=== PATIENT | female | born 1960 | race Caucasian/White ===

== ENCOUNTER → 2024-02-20 13:49 | Outpatient (CLI) | payer OTHER, MEDICAID, SELFPAY ==
[2024-02-20 14:27] LABS: Hematocrit 36.7 % (36-46); Hemoglobin 12.6 g/dL (12.0-16.0); Mean Corpuscular HGB Conc 34.4 % (30-36); Mean Corpuscular Hemoglobin 35.1 PG (26-34); Mean Corpuscular Volume 102.2 fL (80-100); Platelet Count 190 X10^3/uL (150-400); Red Blood Cell Count 3.59 X10^6/uL (4.0-5.2); Red Cell Distribution Width 13.2 % (11.6-14.8)
[2024-02-20 14:46] LABS: Alanine Aminotransferase 20 IU/L (<35); Albumin 4.3 g/dL (3.5-5.0); Albumin Globulin Ratio 1.7 (1.0-2.8); Alkaline Phosphatase 68 U/L (38-126); Aspartate Aminotransferase 22 IU/L (14-36); BUN Creatinine Ratio 24.7 (6-22); Bilirubin Total 0.4 mg/dL (0.2-1.3); Blood Urea Nitrogen 18 mg/dL (7-17); Calcium 9.9 mg/dL (8.4-10.2); Carbon Dioxide 31 mmol/L (22-32); Chloride 100 mmol/L (98-107); Cholesterol 203 mg/dL (140-199); Estimated Glomerular Filt Rate > 60 mL/min (>60); Globulin 2.6 g/dL (1.7-4.1); Glucose 89 mg/dL (80-110); HDL Cholesterol 62 mg/dL (40-60); HEMOLYSIS < 15 (0-50); LDL Cholesterol Calculated 90 mg/dL (<100); Potassium 4.5 mmol/L (3.4-5.1); Sodium 138 mmol/L (137-145); Total Protein 6.9 g/dL (6.3-8.2); Triglycerides 253 mg/dL (35-150)
== END ==
LOC: LAB 13:50
PROVIDERS: PCP Family Medicine; Referring Provider Family Medicine; Visit Provider Family Medicine
DX: E78.5 Hyperlipidemia, unspecified (principal); I10 Essential (primary) hypertension; F32.0 Major depressive disorder, single episode, mild; G47.00 Insomnia, unspecified; M54.50 Low back pain, unspecified; G89.29 Other chronic pain; F41.1 Generalized anxiety disorder
CPT/HCPCS: 36415; 80053; 80061; 85027; 86803; 87389

== ENCOUNTER → 2024-06-10 12:23 | Outpatient (CLI) | payer OTHER, SELFPAY ==
--- NOTE | 2024-06-10 12:26 | DI.RAD.S_ITS ---
PROCEDURE: XR LUMBAR SPINE MIN 4V INDICATIONS: BACK PAIN TECHNIQUE: 5 views of the lumbar spine were acquired, including bilateral oblique views. COMPARISON: None. FINDINGS: Bones: Partial lumbarization of the 1st sacral element noted. Convex left lumbar scoliosis. No pars defects. Wedge-shaped compression fractures at L2 and L3 noted with endplate sclerosis. Disc space narrowing and hypertrophic facet joints in the lower lumbar spine. Soft tissues: Overlying bowel gas pattern is normal. No suspicious soft tissue calcifications. Oblique images: No pars defects. IMPRESSION: L2 and L3 wedge-shaped compression fractures, uncertain age Degenerative disc disease and arthropathy Approved by: Andrzej Andino M.D. on 06/10/2024 at 13:57
== END ==
PROVIDERS: Family Provider Family Medicine; PCP Family Medicine; Referring Provider Physical Medicine & Rehabilitation; Visit Provider Physical Medicine & Rehabilitation
DX: M51.360 Other intervertebral disc degeneration, lumbar region with discogenic back pain only (principal); M47.816 Spondylosis without myelopathy or radiculopathy, lumbar region; M48.56XA Collapsed vertebra, not elsewhere classified, lumbar region, initial encounter for fracture; G89.29 Other chronic pain
CPT/HCPCS: 72110

== ENCOUNTER → 2024-07-01 12:14 | Outpatient (CLI) | payer MEDICAID, SELFPAY ==
--- NOTE | 2024-07-01 12:24 | DI.MRI.S_ITS ---
PROCEDURE: MR LUMBAR SPINE WO CON INDICATIONS: L1, L2 fx, left L2, L3 and L5 radic TECHNIQUE: Noncontrast sagittal T1 spin echo and T2 fast echo, sagittal STIR, and T2 fast spin echo through the lumbar spine. In cases with scoliosis, additional coronal T2 fast spin echo may be performed. COMPARISON: None. FINDINGS: Image quality: Excellent. Alignment and Curvature: Mild levocurvature. Mild retrolisthesis of L4 on L5. 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 Bone Marrow: Chronic compression deformities, moderate L1 and mild at L2 with retropulsion. Marrow is of normal overall signal. No acute vertebral body compression fractures. Spinal Cord: Conus medullaris terminates at the L1 level. Visualized cord demonstrates normal signal and size. Paraspinous Soft Tissues: No paravertebral masses. T12-L1: Disc desiccation. Retropulsion from compression deformity. At least moderate central canal stenosis. No neural foraminal stenosis. L1-L2: Disc desiccation. Retropulsion from compression deformity. Moderate to severe central canal stenosis. Facet arthropathy. Mild bilateral neural foraminal stenosis. L2-L3: Disc desiccation. Facet arthropathy and thickening of ligamentum flavum. Epidural lipomatosis. Moderate central canal stenosis. Mild bilateral neural foraminal stenosis. L3-L4: Disc desiccation diffuse disc bulge. Facet arthropathy and thickening of ligamentum flavum. Epidural lipomatosis. Moderate central canal stenosis. Mild bilateral neural foraminal stenosis. L4-L5: Disc desiccation and mild height loss. Diffuse disc bulge with small superimposed right paracentral disc protrusion. Facet arthropathy. Severe central canal stenosis. Severe left and moderate right neural foraminal stenosis. L5-S1: Disc desiccation. Facet arthropathy. No central canal or neural foraminal stenosis. IMPRESSION: 1. Multilevel degenerative changes of the lumbar spine as described above. Chronic appearing compression deformities of L1 and L2. 2. Severe central canal stenosis at L4-5. Moderate to severe central canal stenosis at L1-L2. 3. Severe left and moderate right neural foraminal stenosis at L4-5. Mild neural foraminal stenosis at other levels. 4. 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 Dictated by: Collins Mendoza M.D. on 07/01/2024 at 15:58 Approved by: Collins Mendoza M.D. on 07/01/2024 at 16:06
== END ==
PROVIDERS: Family Provider Family Medicine; PCP Family Medicine; Referring Provider Physical Medicine & Rehabilitation; Visit Provider Physical Medicine & Rehabilitation
DX: M47.26 Other spondylosis with radiculopathy, lumbar region (principal); M47.27 Other spondylosis with radiculopathy, lumbosacral region; M48.061 Spinal stenosis, lumbar region without neurogenic claudication; M43.27 Fusion of spine, lumbosacral region; S32.019A Unspecified fracture of first lumbar vertebra, initial encounter for closed fracture; S32.029A Unspecified fracture of second lumbar vertebra, initial encounter for closed fracture
CPT/HCPCS: 72148

== ENCOUNTER 2024-07-08 14:30 | Outpatient (RCR) | payer MEDICAID, OTHER, SELFPAY ==
--- NOTE | 2024-04-16 17:02 | PT.OIE ---
Current Diagnoses Other chronic pain (04/18/24) Low back pain, unspecified (04/18/24) Past Medical History (Last Updated 02/20/24 @ 13:45 by Jarrett Ellison DO) Benign essential hypertension Chronic low back pain RASHMI (generalized anxiety disorder) Hyperlipidemia, unspecified Insomnia Major depressive disorder, single episode, mild Visit Care Team Role Provider Type Jarrett Ellison DO Attending Provider Physician Family Provider Primary Care Provider Referring Provider Specialty: Family Practice Address: [address] [place] [address], [facility] [address], [place], [address] Email: [email or web address] Physical Therapy Initial Evaluation PT-OP-A Visit Information Start: 04/16/24 14:47 Freq: Status: Active Protocol: Document 04/16/24 14:48 [facility] (Rec: 04/16/24 15:29 [facility] [id number]) Out-Patient Physical Therapy Visit Information Visit Information Visit Type Initial Evaluation Visit Start Time 14:44 Visit Stop Time 15:28 Visit Number 06/07 per calender year Number of INFORMATION CLERK Visits 0 PT-OP-B Current Condition Start: 04/16/24 14:47 Freq: Status: Active Protocol: Document 04/16/24 14:48 [facility] (Rec: 04/16/24 15:29 [facility] [id number]) Current Condition History of Current Condition Onset Date August 2022 Current Complaints LBP and leg pain History of Current Condition Pt had accident in August 2022 and fell of 8 ft ladder holding chainsaw. Dislocated L knee and had 2 different surgery (external fixation then internal fixation), lumbar spine compression fx ( L1 and 2) and has degneration of L4 and 5 w/compression of n root R>L L4&5. Did PT for several months and started seeing a pain management doctor and had horrible L ankle n pain and had injection that helped. 2nd injections in back helped w/n pain in thigh. DId PT from Jan 2023 ( [facility] until that point) October 2023. Finished d/t move to [place]. pain management doctor wanted her to continue. took a while to get into primary w/move. Feels like nerve pain is getting significantly worse and is able to do less. hx of fx of tibia w/screws (L) about 10 years ago d/t horse falling onto her and those screws had to be take out. Has appt w/pain management Jun 10 . 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 was up to 2500 steps in October in a day. Now it is harder to get to that amt d/t pain. LLE started to swell again and wearing compression socks during the day. Will be exhausted easily like going up a flight of stairs. Treatment Goals Patient/Caregiver Goals strength as much as can, try to avoid surgery, get gym program PT-OP-C Subjective Start: 04/16/24 14:47 Freq: Status: Active Protocol: Document 04/16/24 14:48 [facility] (Rec: 04/16/24 15:29 [facility] [id number]) OP-PT Pain Assessment Location LB Pain Location Details lumbar to sacrum Scale Used worst: 8 ; average: 6, best: 4 Frequency Constant Radiating Location R buttocks, L lat hip/buttocks , med thigh (mid thigh) & med lat leg to arch Variations/Patterns band around calf Pain Aggravating Factors Standing,Sitting,Walking,Stair Climbing,Lifting Pain Alleviating Factors Medication PT-OP-D Balance Start: 04/16/24 14:47 Freq: Status: Active Protocol: Document 04/16/24 14:48 [facility] (Rec: 04/16/24 15:29 [facility] [id number]) Balance Tests Single Limb Standing Single Limb- Right 14 sec w/opp hip drop-back pain Single Limb- Left 6 sec w/opp hip drop PT-OP-F Manual Assessment Start: 04/16/24 14:47 Freq: Status: Active Protocol: Document 04/16/24 14:48 [facility] (Rec: 04/16/24 15:29 [facility] [id number]) Manual Assessments Other Manual Assessments Other Manual Assessments redder around R scars, L>R inflmation, no difference in heat PT-OP-G Mobility & Gait Start: 04/16/24 14:47 Freq: Status: Active Protocol: Document 04/16/24 14:48 [facility] (Rec: 04/16/24 15:29 [facility] [id number]) OP Gait Assessment Comments Gait Comments dec LLE stance time, wears heel lift in L shoe per past PT recommenation, slower L knee flex/ext, dec push off, rigid spinal movement PT-OP-J Posture/Palpation/Skin Start: 04/16/24 14:47 Freq: Status: Active Protocol: Document 04/16/24 14:48 [facility] ([facility]24 [id number] Posture Evaluation Comments Posture Comments stands on lat aspcect of L foot w/dec big toe contact, shifts wt side to side, slight knee flex L, varus L knee, shifted onto RLE; R iliac crest higher and greater trocanter PT-OP-K Range of Motion Start: 04/16/24 14:47 Freq: Status: Active Protocol: Document 04/16/24 14:48 [facility] (Rec: 04/16/24 15:29 [facility] [id number]) Lumbar Spine Range of Motion Lumbar Spine Active Percentage Flexion 20 Extension 5 Rotation Left 30 Rotation Right 50 Lateral Flexion Left 60 Lateral Flexion Right 60 Knee Goniometric Range of Motion Knee L Flexion Active (degrees) 104 Extension Active (degrees) 14 Ankle and Foot Goniometric Range of Motion Ankle and Foot Right Active Dorsiflexion with Knee Flexed 2 Dorsiflexion with Knee Extended 0 Plantarflexion 55 Left Active Dorsiflexion with Knee Flexed 10 Dorsiflexion with Knee Extended 13 Plantarflexion 52 Comments lacking DF to neutral in both positions PT-OP-L Special Tests Start: 04/16/24 14:47 Freq: Status: Active Protocol: Document 04/16/24 14:48 [facility] (Rec: 04/16/24 15:29 [facility] [id number]) Special Tests Lumbar Spine Special Tests Straight Leg Raise Test Results neg B -able to get to 90 ~ w/ opp knee bent Slump Test Results slump pos R; B positive ext sit PT-OP-M Strength Start: 04/16/24 14:47 Freq: Status: Active Protocol: Document 04/16/24 14:48 [facility] (Rec: 04/16/24 15:29 [facility] [id number]) Hip Strength Hip Manual Muscle Testing Right Flexion (L2) 3+ Fair+ Abduction 4 Good External Rotation 4 Good Internal Rotation 4+ Good+ Left Flexion (L2) 3 Fair Abduction 3 Fair External Rotation 3 Fair Internal Rotation 3+ Fair+ Comments n pain w/ER Knee Strength Knee Manual Muscle Testing Right Flexion (S2) 4+ Good+ Extension (L3) 5 Normal Left Flexion (S2) 3+ Fair+ Extension (L3) 3+ Fair+ Ankle/Foot Strength Ankle and Foot Manual Muscle Testing Right Dorsiflexion (L4) 5 Normal Plantarflexion (S1) 5 Normal Inversion 5 Normal Eversion (S1) 5 Normal Comments PF tested seated Left Dorsiflexion (L4) 3+ Fair+ Plantarflexion (S1) 3+ Fair+ Inversion 4- Good- Eversion (S1) 4- Good- Comments pain PT-OP-Q Treatments Start: 04/16/24 14:47 Freq: Status: Active Protocol: Document 04/16/24 14:48 [facility] (Rec: 04/16/24 15:29 [facility] [id number]) Self-Care/Home Management Treatment Education Other Education 8 min: discussed findings of eval and importance of cont exercise along w/leg length discrepency. edu re: significant weakness and encouraged that plan to start PT and if PT not working considering injection. PT-OP-T Assessment and Plan Start: 04/16/24 14:47 Freq: Status: Active Protocol: Document 04/16/24 14:48 [facility] (Rec: 04/16/24 15:29 [facility] [id number]) Physical Therapy Assessment Rehab Potential Rehabilitation Potential Good Evaluation Complexity Number of Personal Factors/Comorbidities 3 or More Number of Body Systems Impaired 4 or More Clinical Presentation at Evaluation Evolving Impairments Impairments Activity Tolerance,Balance, Edema,Functional Activities, Functional Mobility,Gait,Pain, Posture,ROM,Soft Tissue Mobility,Strength,Transfers Goals activity Short Term Goal (STG) Pt will report being able to go up a flight of stairs w/o c /o fatigue or pain greater than 4/10 STG Duration 05/29/24 Fpc Goal (LTG) Pt will report being able to sit and stand and alternate between the options in order to allow pt to return to working. LTG Duration 07/10/24 strength Short Term Goal (STG) Pt will be indep w/HEP and will be able to start working out at the gym w/PT direction. STG Duration 05/29/24 Fpc Goal (LTG) pt will score at least 4/5 on BLE MMT and at least 3/5 on LPM to show improved stability to allow greater ease w/ activity. LTG Duration 07/10/24 CHRIS Impairment 25/50 Short Term Goal (STG) Pt will improve CHRIS score to at least 19/50 to show improved functional ability. STG Duration 05/29/24 Fpc Goal (LTG) Pt will improve CHRIS score to at least 9/50 to show improved functional ability. LTG Duration 07/10/24 Assessment Summary Assessment Pt presents w/worsening pain since finishing moving to [place] in November and no longer attending PT w/hx of fall in August 2022 falling off ladder holding chainsaw w/ ORIF completed of L tibia along w/compression fx of L1 and 2 and compression of n root at L4 and 5 w/hx of helpful injecitons. Pain is worse and pt trying to avoid surgery and build up strength again while waiting to see pain medicine specialist. She is very weak in L>R LE and in core along w/has notable gait deviations and dec balance. She would benefit from skilled PT to address her deficits as she is unable to work d/t pain d/t intolerance to sitting and standing. Physical Therapy Plan Frequency and Duration Frequency of Treatment 2x/Week Duration of treatment (weeks) 12 Plan of Care Start Date 04/16/24 Plan of Care End Date 07/10/24 Therapeutic Interventions Therapeutic Interventions Balance Training,Gait Training ,Home Exercise Program,Joint Mobilizations,Manual Therapy, Neuromuscular Re-education, Patient/Caregiver Education, Self-Care/Home Management,Soft Tissue Mobilization,Taping, Therapeutic Activities, Therapeutic Exercises Modalities Cold Pack/Ice Massage,Electric Stimulation,Hot Packs, Infrared Therapy,Ultrasound Next Visit Focus/Plan Next Note Type Treatment Note Next Visit Plan careful re: hx of compression fx L1, 2; work on pelvis relalignment, gentle STM to back and LLE to improve mobility and ROM, ankle and knee jt mobs to improve mobility. HEP: try sit to stands, supine core (ex. Pelvic tilts, LTR, bridge, SL isometric press), consider clamshells, hip abd strength Try bike options, leg press, leg machines for gym training
--- NOTE | 2024-04-16 18:34 | PT.OIE ---
Current Diagnoses Other chronic pain (04/16/24) Low back pain, unspecified (04/16/24) Past Medical History (Last Updated 02/20/24 @ 13:45 by Jarrett Ellison DO) Benign essential hypertension Chronic low back pain RASHMI (generalized anxiety disorder) Hyperlipidemia, unspecified Insomnia Major depressive disorder, single episode, mild Visit Care Team Role Provider Type Jarrett Ellison DO Attending Provider Physician Family Provider Primary Care Provider Referring Provider Specialty: Family Practice Address: [address] [place] [address], [facility] [address], [place], [address] Email: [email or web address] Physical Therapy Initial Evaluation PT-OP-A Visit Information Start: 04/16/24 14:47 Freq: Status: Active Protocol: Document 04/16/24 14:48 [facility] (Rec: 04/16/24 15:29 [facility] [id number]) Out-Patient Physical Therapy Visit Information Visit Information Visit Type Initial Evaluation Visit Start Time 14:44 Visit Stop Time 15:28 Visit Number 06/07 per calender year Number of MINING PROFESSIONALS Visits 0 PT-OP-B Current Condition Start: 04/16/24 14:47 Freq: Status: Active Protocol: Document 04/16/24 14:48 [facility] (Rec: 04/16/24 15:29 [facility] [id number]) Current Condition History of Current Condition Onset Date August 2022 Current Complaints LBP and leg pain History of Current Condition Pt had accident in August 2022 and fell of 8 ft ladder holding chainsaw. Dislocated L knee and had 2 different surgery (external fixation then internal fixation), lumbar spine compression fx ( L1 and 2) and has degneration of L4 and 5 w/compression of n root R>L L4&5. Did PT for several months and started seeing a pain management doctor and had horrible L ankle n pain and had injection that helped. 2nd injections in back helped w/n pain in thigh. DId PT from Jan 2023 ( [facility] until that point) October 2023. Finished d/t move to [place]. pain management doctor wanted her to continue. took a while to get into primary w/move. Feels like nerve pain is getting significantly worse and is able to do less. hx of fx of tibia w/screws (L) about 10 years ago d/t horse falling onto her and those screws had to be take out. Has appt w/pain management Jun 10 . 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 was up to 2500 steps in October in a day. Now it is harder to get to that amt d/t pain. LLE started to swell again and wearing compression socks during the day. Will be exhausted easily like going up a flight of stairs. Treatment Goals Patient/Caregiver Goals strength as much as can, try to avoid surgery, get gym program PT-OP-C Subjective Start: 04/16/24 14:47 Freq: Status: Active Protocol: Document 04/16/24 14:48 [facility] (Rec: 04/16/24 15:29 [facility] [id number]) OP-PT Pain Assessment Location LB Pain Location Details lumbar to sacrum Scale Used worst: 8 ; average: 6, best: 4 Frequency Constant Radiating Location R buttocks, L lat hip/buttocks , med thigh (mid thigh) & med lat leg to arch Variations/Patterns band around calf Pain Aggravating Factors Standing,Sitting,Walking,Stair Climbing,Lifting Pain Alleviating Factors Medication PT-OP-D Balance Start: 04/16/24 14:47 Freq: Status: Active Protocol: Document 04/16/24 14:48 [facility] (Rec: 04/16/24 15:29 [facility] [id number]) Balance Tests Single Limb Standing Single Limb- Right 14 sec w/opp hip drop-back pain Single Limb- Left 6 sec w/opp hip drop PT-OP-F Manual Assessment Start: 04/16/24 14:47 Freq: Status: Active Protocol: Document 04/16/24 14:48 [facility] (Rec: 04/16/24 15:29 [facility] [id number]) Manual Assessments Other Manual Assessments Other Manual Assessments redder around R scars, L>R inflmation, no difference in heat PT-OP-G Mobility & Gait Start: 04/16/24 14:47 Freq: Status: Active Protocol: Document 04/16/24 14:48 [facility] (Rec: 04/16/24 15:29 [facility] [id number]) OP Gait Assessment Comments Gait Comments dec LLE stance time, wears heel lift in L shoe per past PT recommenation, slower L knee flex/ext, dec push off, rigid spinal movement PT-OP-J Posture/Palpation/Skin Start: 04/16/24 14:47 Freq: Status: Active Protocol: Document 04/16/24 14:48 [facility] (Rec: 04/16/24 15:29 [id number] Posture Evaluation Comments Posture Comments stands on lat aspcect of L foot w/dec big toe contact, shifts wt side to side, slight knee flex L, varus L knee, shifted onto RLE; R iliac crest higher and greater trocanter PT-OP-K Range of Motion Start: 04/16/24 14:47 Freq: Status: Active Protocol: Document 04/16/24 14:48 [facility] (Rec: 04/16/24 15:29 [facility] [id number]) Lumbar Spine Range of Motion Lumbar Spine Active Percentage Flexion 20 Extension 5 Rotation Left 30 Rotation Right 50 Lateral Flexion Left 60 Lateral Flexion Right 60 Knee Goniometric Range of Motion Knee L Flexion Active (degrees) 104 Extension Active (degrees) 14 Ankle and Foot Goniometric Range of Motion Ankle and Foot Right Active Dorsiflexion with Knee Flexed 2 Dorsiflexion with Knee Extended 0 Plantarflexion 55 Left Active Dorsiflexion with Knee Flexed 10 Dorsiflexion with Knee Extended 13 Plantarflexion 52 Comments lacking DF to neutral in both positions PT-OP-L Special Tests Start: 04/16/24 14:47 Freq: Status: Active Protocol: Document 04/16/24 14:48 [facility] (Rec: 04/16/24 15:29 [facility] [id number]) Special Tests Lumbar Spine Special Tests Straight Leg Raise Test Results neg B -able to get to 90 ~ w/ opp knee bent Slump Test Results slump pos R; B positive ext sit PT-OP-M Strength Start: 04/16/24 14:47 Freq: Status: Active Protocol: Document 04/16/24 14:48 [facility] (Rec: 04/16/24 15:29 [facility] [id number]) Hip Strength Hip Manual Muscle Testing Right Flexion (L2) 3+ Fair+ Abduction 4 Good External Rotation 4 Good Internal Rotation 4+ Good+ Left Flexion (L2) 3 Fair Abduction 3 Fair External Rotation 3 Fair Internal Rotation 3+ Fair+ Comments n pain w/ER Knee Strength Knee Manual Muscle Testing Right Flexion (S2) 4+ Good+ Extension (L3) 5 Normal Left Flexion (S2) 3+ Fair+ Extension (L3) 3+ Fair+ Ankle/Foot Strength Ankle and Foot Manual Muscle Testing Right Dorsiflexion (L4) 5 Normal Plantarflexion (S1) 5 Normal Inversion 5 Normal Eversion (S1) 5 Normal Comments PF tested seated Left Dorsiflexion (L4) 3+ Fair+ Plantarflexion (S1) 3+ Fair+ Inversion 4- Good- Eversion (S1) 4- Good- Comments pain PT-OP-Q Treatments Start: 04/16/24 14:47 Freq: Status: Active Protocol: Document 04/16/24 14:48 [facility] (Rec: 04/16/24 15:29 [facility] [id number]) Self-Care/Home Management Treatment Education Other Education 8 min: discussed findings of eval and importance of cont exercise along w/leg length discrepency. edu re: significant weakness and encouraged that plan to start PT and if PT not working considering injection. PT-OP-T Assessment and Plan Start: 04/16/24 14:47 Freq: Status: Active Protocol: Document 04/16/24 14:48 [facility] (Rec: 04/16/24 15:29 [facility] [id number]) Physical Therapy Assessment Rehab Potential Rehabilitation Potential Good Evaluation Complexity Number of Personal Factors/Comorbidities 3 or More Number of Body Systems Impaired 4 or More Clinical Presentation at Evaluation Evolving Impairments Impairments Activity Tolerance,Balance, Edema,Functional Activities, Functional Mobility,Gait,Pain, Posture,ROM,Soft Tissue Mobility,Strength,Transfers Goals activity Short Term Goal (STG) Pt will report being able to go up a flight of stairs w/o c /o fatigue or pain greater than 4/10 STG Duration 05/29/24 Detention Goal (LTG) Pt will report being able to sit and stand and alternate between the options in order to allow pt to return to working. LTG Duration 07/10/24 strength Short Term Goal (STG) Pt will be indep w/HEP and will be able to start working out at the gym w/PT direction. STG Duration 05/29/24 Detention Goal (LTG) pt will score at least 4/5 on BLE MMT and at least 3/5 on LPM to show improved stability to allow greater ease w/ activity. LTG Duration 07/10/24 CHRIS Impairment 25/50 Short Term Goal (STG) Pt will improve CHRIS score to at least 19/50 to show improved functional ability. STG Duration 05/29/24 Detention Goal (LTG) Pt will improve CHRIS score to at least 9/50 to show improved functional ability. LTG Duration 07/10/24 Assessment Summary Assessment Pt presents w/worsening pain since finishing moving to [place] in November and no longer attending PT w/hx of fall in August 2022 falling off ladder holding chainsaw w/ ORIF completed of L tibia along w/compression fx of L1 and 2 and compression of n root at L4 and 5 w/hx of helpful injecitons. Pain is worse and pt trying to avoid surgery and build up strength again while waiting to see pain medicine specialist. She is very weak in L>R LE and in core along w/has notable gait deviations and dec balance. She would benefit from skilled PT to address her deficits as she is unable to work d/t pain d/t intolerance to sitting and standing. Physical Therapy Plan Frequency and Duration Frequency of Treatment 2x/Week Duration of treatment (weeks) 12 Plan of Care Start Date 04/16/24 Plan of Care End Date 07/10/24 Therapeutic Interventions Modalities Cold Pack/Ice Massage,Electric Stimulation,Hot Packs, Infrared Therapy,Ultrasound Next Visit Focus/Plan Next Note Type Treatment Note Next Visit Plan careful re: hx of compression fx L1, 2; work on pelvis relalignment, gentle STM to back and LLE to improve mobility and ROM, ankle and knee jt mobs to improve mobility. HEP: try sit to stands, supine core (ex. Pelvic tilts, LTR, bridge, SL isometric press), consider clamshells, hip abd strength Try bike options, leg press, leg machines for gym training
--- NOTE | 2024-04-16 18:34 | PT.OPPOC ---
Physical, Occupational & Speech Therapy At [facility] Current Diagnoses Other chronic pain (04/16/24) Low back pain, unspecified (04/16/24) Visit Care Team Role Provider Type Jarrett Ellison DO Attending Provider Physician Family Provider Primary Care Provider Referring Provider Specialty: Family Practice Address: [address] [place] [address], [address], [facility] Email: [email or web address] Plan Of Care PT-OP-B Current Condition Start: 04/16/24 14:47 Freq: Status: Active Protocol: Document 04/16/24 14:48 [facility] (Rec: 04/16/24 15:29 [facility] [id number]) Current Condition History of Current Condition Onset Date August 2022 Current Complaints LBP and leg pain History of Current Condition Pt had accident in August 2022 and fell of 8 ft ladder holding chainsaw. Dislocated L knee and had 2 different surgery (external fixation then internal fixation), lumbar spine compression fx ( L1 and 2) and has degneration of L4 and 5 w/compression of n root R>L L4&5. Did PT for several months and started seeing a pain management doctor and had horrible L ankle n pain and had injection that helped. 2nd injections in back helped w/n pain in thigh. DId PT from Jan 2023 ( [facility] until that point) October 2023. Finished d/t move to [place]. pain management doctor wanted her to continue. took a while to get into primary w/move. Feels like nerve pain is getting significantly worse and is able to do less. hx of fx of tibia w/screws (L) about 10 years ago d/t horse falling onto her and those screws had to be take out. Has appt w/pain management Jun 10 . 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 was up to 2500 steps in October in a day. Now it is harder to get to that amt d/t pain. LLE started to swell again and wearing compression socks during the day. Will be exhausted easily like going up a flight of stairs. Treatment Goals Patient/Caregiver Goals strength as much as can, try to avoid surgery, get gym program PT-OP-T Assessment and Plan Start: 04/16/24 14:47 Freq: Status: Active Protocol: Document 04/16/24 14:48 [facility] (Rec: 04/16/24 15:29 [facility] [id number]) Physical Therapy Assessment Rehab Potential Rehabilitation Potential Good Evaluation Complexity Number of Personal Factors/Comorbidities 3 or More Number of Body Systems Impaired 4 or More Clinical Presentation at Evaluation Evolving Impairments Impairments Activity Tolerance,Balance, Edema,Functional Activities, Functional Mobility,Gait,Pain, Posture,ROM,Soft Tissue Mobility,Strength,Transfers Goals activity Short Term Goal (STG) Pt will report being able to go up a flight of stairs w/o c /o fatigue or pain greater than 4/10 STG Duration 05/29/24 Custodial Goal (LTG) Pt will report being able to sit and stand and alternate between the options in order to allow pt to return to working. LTG Duration 07/10/24 strength Short Term Goal (STG) Pt will be indep w/HEP and will be able to start working out at the gym w/PT direction. STG Duration 05/29/24 Public Health Nurse Goal (LTG) pt will score at least 4/5 on BLE MMT and at least 3/5 on LPM to show improved stability to allow greater ease w/ activity. LTG Duration 07/10/24 CHRIS Impairment 25/50 Short Term Goal (STG) Pt will improve CHRIS score to at least 19/50 to show improved functional ability. STG Duration 05/29/24 Custodial Goal (LTG) Pt will improve CHRIS score to at least 9/50 to show improved functional ability. LTG Duration 07/10/24 Assessment Summary Assessment Pt presents w/worsening pain since finishing moving to [place] in November and no longer attending PT w/hx of fall in August 2022 falling off ladder holding chainsaw w/ ORIF completed of L tibia along w/compression fx of L1 and 2 and compression of n root at L4 and 5 w/hx of helpful injecitons. Pain is worse and pt trying to avoid surgery and build up strength again while waiting to see pain medicine specialist. She is very weak in L>R LE and in core along w/has notable gait deviations and dec balance. She would benefit from skilled PT to address her deficits as she is unable to work d/t pain d/t intolerance to sitting and standing. Physical Therapy Plan Frequency and Duration Frequency of Treatment 2x/Week Duration of treatment (weeks) 12 Plan of Care Start Date 04/16/24 Plan of Care End Date 07/10/24 Therapeutic Interventions Modalities Cold Pack/Ice Massage,Electric Stimulation,Hot Packs, Infrared Therapy,Ultrasound Next Visit Focus/Plan Next Note Type Treatment Note Next Visit Plan careful re: hx of compression fx L1, 2; work on pelvis relalignment, gentle STM to back and LLE to improve mobility and ROM, ankle and knee jt mobs to improve mobility. HEP: try sit to stands, supine core (ex. Pelvic tilts, LTR, bridge, SL isometric press), consider clamshells, hip abd strength Try bike options, leg press, leg machines for gym training Plan of Care Dates Plan of Care Start Date 04/16/24 Plan of Care End Date 07/10/24 Electronically Signed by: Ermelinda Escobar, PT 04/17/24 [id number] If you are in agreement with this Plan of Care, please return a signed and dated copy. I have reviewed this Plan of Care and certify that the skilled therapy services above are required to meet the patient?s needs. Physician Signature Date Printed Name and Credentials Clinical Instructor Signature Printed Name and Credentials
--- NOTE | 2024-04-18 15:38 | PT.OTN ---
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 Dislocated L knee and had 2 different surgery (external fixation then internal fixation), lumbar spine compression fx ( L1 and 2) and has degneration of L4 and 5 w/compression of n root R>L L4&5. Did PT for several months and started seeing a pain management doctor and had horrible L ankle n pain and had injection that helped. 2nd injections in back helped w/n pain in thigh. DId PT from Jan 2023 ( [facility] until that point) October 2023. Finished d/t move to [place]. pain management doctor wanted her to continue. took a while to get into primary w/move. Feels like nerve pain is getting significantly worse and is able to do less. hx of fx of tibia w/screws (L) about 10 years ago d/t horse falling onto her and those screws had to be take out. Has appt w/pain management Jun 10 . 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 was up to 2500 steps in October in a day. Now it is harder to get to that amt d/t pain. LLE started to swell again and wearing compression socks during the day. Will be exhausted easily like going up a flight of stairs. Treatment Goals Patient/Caregiver Goals strength as much as can, try to avoid surgery, get gym program PT-OP-C Subjective Start: 04/16/24 14:47 Freq: Status: Active Protocol: Document 04/18/24 14:11 [facility] (Rec: 04/18/24 15:38 [facility] [id number]) OP-PT Subjective Patient Comments Patient Comments Patient reports she is the same. PT-OP-D Balance Start: 04/16/24 14:47 Freq: Status: Active Protocol: Document 04/16/24 14:48 [facility] (Rec: 04/16/24 15:29 [facility] [id number]) Balance Tests Single Limb Standing Single Limb- Right 14 sec w/opp hip drop-back pain Single Limb- Left 6 sec w/opp hip drop PT-OP-F Manual Assessment Start: 04/16/24 14:47 Freq: Status: Active Protocol: Document 04/16/24 14:48 [facility] (Rec: 04/16/24 15:29 [facility] [id number]) Manual Assessments Other Manual Assessments Other Manual Assessments redder around R scars, L>R inflmation, no difference in heat PT-OP-G Mobility & Gait Start: 04/16/24 14:47 Freq: Status: Active Protocol: Document 04/16/24 14:48 [facility] (Rec: 04/16/24 15:29 [facility] [id number]) OP Gait Assessment Comments Gait Comments dec LLE stance time, wears heel lift in L shoe per past PT recommenation, slower L knee flex/ext, dec push off, rigid spinal movement PT-OP-J Posture/Palpation/Skin Start: 04/16/24 14:47 Freq: Status: Active Protocol: Document 04/16/24 14:48 [facility] (Rec: 04/16/24 15:29 [facility] [id number]) Posture Evaluation Comments Posture Comments stands on lat aspcect of L foot w/dec big toe contact, shifts wt side to side, slight knee flex L, varus L knee, shifted onto RLE; R iliac crest higher and greater trocanter PT-OP-K Range of Motion Start: 04/16/24 14:47 Freq: Status: Active Protocol: Document 04/16/24 14:48 [facility] (Rec: 04/16/24 15:29 [facility] [id number]) Lumbar Spine Range of Motion Lumbar Spine Active Percentage Flexion 20 Extension 5 Rotation Left 30 Rotation Right 50 Lateral Flexion Left 60 Lateral Flexion Right 60 Knee Goniometric Range of Motion Knee L Flexion Active (degrees) 104 Extension Active (degrees) 14 Ankle and Foot Goniometric Range of Motion Ankle and Foot Right Active Dorsiflexion with Knee Flexed 2 Dorsiflexion with Knee Extended 0 Plantarflexion 55 Left Active Dorsiflexion with Knee Flexed 10 Dorsiflexion with Knee Extended 13 Plantarflexion 52 Comments lacking DF to neutral in both positions PT-OP-L Special Tests Start: 04/16/24 14:47 Freq: Status: Active Protocol: Document 04/16/24 14:48 [facility] (Rec: 04/16/24 15:29 [facility] [id number]) Special Tests Lumbar Spine Special Tests Straight Leg Raise Test Results neg B -able to get to 90 ~ w/ opp knee bent Slump Test Results slump pos R; B positive ext sit PT-OP-M Strength Start: 04/16/24 14:47 Freq: Status: Active Protocol: Document 04/16/24 14:48 [facility] (Rec: 04/16/24 15:29 [facility] [id number]) Hip Strength Hip Manual Muscle Testing Right Flexion (L2) 3+ Fair+ Abduction 4 Good External Rotation 4 Good Internal Rotation 4+ Good+ Left Flexion (L2) 3 Fair Abduction 3 Fair External Rotation 3 Fair Internal Rotation 3+ Fair+ Comments n pain w/ER Knee Strength Knee Manual Muscle Testing Right Flexion (S2) 4+ Good+ Extension (L3) 5 Normal Left Flexion (S2) 3+ Fair+ Extension (L3) 3+ Fair+ Ankle/Foot Strength Ankle and Foot Manual Muscle Testing Right Dorsiflexion (L4) 5 Normal Plantarflexion (S1) 5 Normal Inversion 5 Normal Eversion (S1) 5 Normal Comments PF tested seated Left Dorsiflexion (L4) 3+ Fair+ Plantarflexion (S1) 3+ Fair+ Inversion 4- Good- Eversion (S1) 4- Good- Comments pain PT-OP-Q Treatments Start: 04/16/24 14:47 Freq: Status: Active Protocol: Document 04/18/24 14:11 [facility] (Rec: 04/18/24 15:38 [facility] [id number]) Therapeutic Exercises Supine Exercises piriformis stretch Supine Exercise Name HEP Side bilateral Equipment Used HEP Reps/Minutes one minute each LE Comments Verbal cues Mika stretch Side bilateral Reps/Minutes one + minute each LE with AROM knee flexion Comments verbal cues Sitting Exercises seated hip abduction with band Side bilateral Resistance level 3 band Equipment Used HEP Reps/Minutes one minute Comments one minute for glute med activation. Standing Exercises calf stretches Standing Exercise Name gastroc and soleus Side left Equipment Used HEP Reps/Minutes X1 each stretch one minute Comments verbal and visual cues, monitored for TC discomfort Gait Training Gait Activity descending stairs Description 4 six inch stairs with bilateral UE use Treatment Focus Verbal cues for hands fwd on rail to inc hip hinge and decrease force knees facing mirror Distance/Duration ~10 feet Treatment Focus decreasing left ipsilateral trunk sidebend Comments reports increased discomfort SI area with trial of decreasing ipsilateral trunk sidebend Manual Therapy Treatment Consent Patient gave verbal consent for manual Yes treatment Soft Tissue Mobilization left quad Mobilization Type Myofascial Release,Other Intensity/Depth Superficial Body Position Hooklying hips, SI area Body Location bilateral L> R SI, glute/ piriformis/ hip flexors Mobilization Type Cross-Friction,Rolling, Sustained Pressure Intensity/Depth Moderate Body Position Sidelying Joint Mobilizations left ankle Joint Mulligan with movement TC mob Direction AP Grade III Body Position Standing Reps/Duration X10 X 3 left knee Joint tibia on femur Direction AP and PA Grade III Body Position Hooklying Reps/Duration X10 each Comments and supine Manual Techniques MET for right AI left PI Type and pubic shotgun Body Location SI Body Position Hooklying Reps/Duration 6X 6 seconds each PT-OP-T Assessment and Plan Start: 04/16/24 14:47 Freq: Status: Active Protocol: Document 04/18/24 14:11 [facility] (Rec: 04/18/24 15:38 [facility] [id number]) Physical Therapy Assessment Goals activity Short Term Goal (STG) Pt will report being able to go up a flight of stairs w/o c /o fatigue or pain greater than 4/10 STG Duration 05/29/24 Custodial Goal (LTG) Pt will report being able to sit and stand and alternate between the options in order to allow pt to return to working. LTG Duration 07/10/24 strength Short Term Goal (STG) Pt will be indep w/HEP and will be able to start working out at the gym w/PT direction. STG Duration 05/29/24 Logistician Goal (LTG) pt will score at least 4/5 on BLE MMT and at least 3/5 on LPM to show improved stability to allow greater ease w/ activity. LTG Duration 07/10/24 CHRIS Impairment 25/50 Short Term Goal (STG) Pt will improve CHRIS score to at least 19/50 to show improved functional ability. STG Duration 05/29/24 Logistician Goal (LTG) Pt will improve CHRIS score to at least 9/50 to show improved functional ability. LTG Duration 07/10/24 Assessment Summary Assessment Patient rates back pain 4/10 end of session in standing. Good doretha to stretches and glute med activation during session. LE muscle stiffness and weakness continues to impact gait pattern and functional mobility. Physical Therapy Plan Therapeutic Interventions Modalities Cold Pack/Ice Massage,Electric Stimulation,Hot Packs, Infrared Therapy,Ultrasound Next Visit Focus/Plan Next Note Type Treatment Note Next Visit Plan check balance, assess doretha to HEP, Mika stretch to HEP, Glute med strengthening/sit to stand with band with focus on full knee ext when reaching upright left LE careful re: hx of compression fx L1, 2; work on pelvis relalignment, gentle STM to back and LLE to improve mobility and ROM, ankle and knee jt mobs to improve mobility. HEP: try sit to stands, supine core (ex. Pelvic tilts, LTR, bridge, SL isometric press), consider clamshells, hip abd strength Try bike options, leg press, leg machines for gym training
--- NOTE | 2024-04-23 16:58 | PT.OTN ---
Current Diagnoses Other chronic pain (04/23/24) Low back pain, unspecified (04/23/24) Physical Therapy Treatment Note PT-OP-A Visit Information Start: 04/16/24 14:47 Freq: Status: Active Protocol: Document 04/23/24 13:32 SW (Rec: 04/23/24 14:36 SW [id number]) Out-Patient Physical Therapy Visit Information Visit Information Visit Type Treatment Note Visit Start Time 13:45 Visit Stop Time 14:25 Visit Number 08/05 Number of FORGING PRESS LEVER TENDER Visits 2 PT-OP-B Current Condition Start: 04/16/24 14:47 Freq: Status: Active Protocol: Document 04/16/24 14:48 [facility] (Rec: 04/16/24 15:29 [facility] [id number]) Current Condition History of Current Condition Onset Date August 2022 Current Complaints LBP and leg pain History of Current Condition Pt had accident in August 2022 and fell of 8 ft ladder holding chainsaw. Dislocated L knee and had 2 different surgery (external fixation then internal fixation), lumbar spine compression fx ( L1 and 2) and has degneration of L4 and 5 w/compression of n root R>L L4&5. Did PT for several months and started seeing a pain management doctor and had horrible L ankle n pain and had injection that helped. 2nd injections in back helped w/n pain in thigh. DId PT from Jan 2023 ( [facility] until that point) October 2023. Finished d/t move to [place]. pain management doctor wanted her to continue. took a while to get into primary w/move. Feels like nerve pain is getting significantly worse and is able to do less. hx of fx of tibia w/screws (L) about 10 years ago d/t horse falling onto her and those screws had to be take out. Has appt w/pain management Jun 10 . 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 was up to 2500 steps in October in a day. Now it is harder to get to that amt d/t pain. LLE started to swell again and wearing compression socks during the day. Will be exhausted easily like going up a flight of stairs. Treatment Goals Patient/Caregiver Goals strength as much as can, try to avoid surgery, get gym program PT-OP-C Subjective Start: 04/16/24 14:47 Freq: Status: Active Protocol: Document 04/23/24 13:32 SW (Rec: 04/23/24 14:36 SW [id number]) OP-PT Subjective Patient Comments Patient Comments Pt reports felt better for a day or two, now feels the same . Pt reports at rest in seated 3/10. Pt reports prolonged seated/ standing pain goes up and with movement pain goes as high as 6-7/10 PT-OP-D Balance Start: 04/16/24 14:47 Freq: Status: Active Protocol: Document 04/16/24 14:48 [facility] (Rec: 04/16/24 15:29 [facility] [id number]) Balance Tests Single Limb Standing Single Limb- Right 14 sec w/opp hip drop-back pain Single Limb- Left 6 sec w/opp hip drop PT-OP-F Manual Assessment Start: 04/16/24 14:47 Freq: Status: Active Protocol: Document 04/16/24 14:48 [facility] (Rec: 04/16/24 15:29 [facility] [id number]) Manual Assessments Other Manual Assessments Other Manual Assessments redder around R scars, L>R inflmation, no difference in heat PT-OP-G Mobility & Gait Start: 04/16/24 14:47 Freq: Status: Active Protocol: Document 04/16/24 14:48 [facility] (Rec: 04/16/24 15:29 [facility] [id number]) OP Gait Assessment Comments Gait Comments dec LLE stance time, wears heel lift in L shoe per past PT recommenation, slower L knee flex/ext, dec push off, rigid spinal movement PT-OP-J Posture/Palpation/Skin Start: 04/16/24 14:47 Freq: Status: Active Protocol: Document 04/16/24 14:48 [facility] (Rec: 04/16/24 15:29 [facility] [id number]) Posture Evaluation Comments Posture Comments stands on lat aspcect of L foot w/dec big toe contact, shifts wt side to side, slight knee flex L, varus L knee, shifted onto RLE; R iliac crest higher and greater trocanter PT-OP-K Range of Motion Start: 04/16/24 14:47 Freq: Status: Active Protocol: Document 04/16/24 14:48 [facility] (Rec: 04/16/24 15:29 [facility] [id number]) Lumbar Spine Range of Motion Lumbar Spine Active Percentage Flexion 20 Extension 5 Rotation Left 30 Rotation Right 50 Lateral Flexion Left 60 Lateral Flexion Right 60 Knee Goniometric Range of Motion Knee L Flexion Active (degrees) 104 Extension Active (degrees) 14 Ankle and Foot Goniometric Range of Motion Ankle and Foot Right Active Dorsiflexion with Knee Flexed 2 Dorsiflexion with Knee Extended 0 Plantarflexion 55 Left Active Dorsiflexion with Knee Flexed 10 Dorsiflexion with Knee Extended 13 Plantarflexion 52 Comments lacking DF to neutral in both positions PT-OP-L Special Tests Start: 04/16/24 14:47 Freq: Status: Active Protocol: Document 04/16/24 14:48 [facility] (Rec: 04/16/24 15:29 [facility] [id number]) Special Tests Lumbar Spine Special Tests Straight Leg Raise Test Results neg B -able to get to 90 ~ w/ opp knee bent Slump Test Results slump pos R; B positive ext sit PT-OP-M Strength Start: 04/16/24 14:47 Freq: Status: Active Protocol: Document 04/16/24 14:48 [facility] (Rec: 04/16/24 15:29 [facility] [id number]) Hip Strength Hip Manual Muscle Testing Right Flexion (L2) 3+ Fair+ Abduction 4 Good External Rotation 4 Good Internal Rotation 4+ Good+ Left Flexion (L2) 3 Fair Abduction 3 Fair External Rotation 3 Fair Internal Rotation 3+ Fair+ Comments n pain w/ER Knee Strength Knee Manual Muscle Testing Right Flexion (S2) 4+ Good+ Extension (L3) 5 Normal Left Flexion (S2) 3+ Fair+ Extension (L3) 3+ Fair+ Ankle/Foot Strength Ankle and Foot Manual Muscle Testing Right Dorsiflexion (L4) 5 Normal Plantarflexion (S1) 5 Normal Inversion 5 Normal Eversion (S1) 5 Normal Comments PF tested seated Left Dorsiflexion (L4) 3+ Fair+ Plantarflexion (S1) 3+ Fair+ Inversion 4- Good- Eversion (S1) 4- Good- Comments pain PT-OP-Q Treatments Start: 04/16/24 14:47 Freq: Status: Active Protocol: Document 04/23/24 13:32 (Rec: 04/23/24 14:36 [id number]) Therapeutic Exercises Supine Exercises LTR Supine Exercise Name LTR Side bilateral Comments instructed in comfortable, pain free range Core Supine Exercise Name SL Isometric Side bilateral Resistance isometric Reps/Minutes x10 ea w/3 hold Comments cues for core activation, and breathwork piriformis stretch Supine Exercise Name HEP Side bilateral Equipment Used HEP Reps/Minutes one minute each LE Comments Verbal cues Mika stretch Supine Exercise Name Mika stretch, trial different hip flexor stretch for carryover at home Side bilateral Reps/Minutes one + minute each LE with AROM knee flexion Comments verbal cues for stretch, pain free Sitting Exercises seated hip abduction with band Sitting Exercise Name Reviewed for pt tolerance, tolerated better with decreased hip flex Side bilateral Resistance level 3 band Equipment Used HEP Reps/Minutes one minute Comments one minute for glute med activation. Standing Exercises calf stretches Standing Exercise Name verbal review for HEP carryover tolerance, review next session as able Other Exercises STS Other Exercise Name STS w/ band Resistance level 1 TB Equipment Used elevated plinth, slightly higher than standard chair height Comments cues for mechanics, cues for glute activation to come into standing Manual Therapy Treatment Consent Patient gave verbal consent for manual Yes treatment Soft Tissue Mobilization left quad Mobilization Type Myofascial Release,Other Intensity/Depth Superficial Body Position Hooklying hips, SI area Body Location Left SI, glute/piriformis/ hip flexors Mobilization Type Cross-Friction,Rolling, Sustained Pressure,Trigger Point Release Intensity/Depth Moderate Body Position Sidelying Comments instructed pt in self STM w/ tennis ball on wall to glute/ piriformis mm, as tolerated PT-OP-T Assessment and Plan Start: 04/16/24 14:47 Freq: Status: Active Protocol: Document 04/23/24 13:32 (Rec: 04/23/24 14:36 [id number]) Physical Therapy Assessment Goals activity Short Term Goal (STG) Pt will report being able to go up a flight of stairs w/o c /o fatigue or pain greater than 4/10 STG Duration 05/29/24 Long-Term Goal (LTG) Pt will report being able to sit and stand and alternate between the options in order to allow pt to return to working. LTG Duration 07/10/24 strength Short Term Goal (STG) Pt will be indep w/HEP and will be able to start working out at the gym w/PT direction. STG Duration 05/29/24 Long-Term Goal (LTG) pt will score at least 4/5 on BLE MMT and at least 3/5 on LPM to show improved stability to allow greater ease w/ activity. LTG Duration 07/10/24 CHRIS Impairment 25/50 Short Term Goal (STG) Pt will improve CHRIS score to at least 19/50 to show improved functional ability. STG Duration 05/29/24 Swimming Pool Maintenance Supervisor Goal (LTG) Pt will improve CHRIS score to at least 9/50 to show improved functional ability. LTG Duration 07/10/24 Assessment Summary Assessment Initiated core stabilization in supine this session, pt tolerated well, mod cues required for core stabilization, breathwork. Continued manual therapy to decrease tension and improve mobility, pt had multiple trigger points in glute, improved post manual, instructed pt in self STM with tennis ball in a nylon or long sock against wall for carryover at home. Initiated STS this session with level 1 TB for glute med activation, plinth slightly elevated for pt tolerance and to improve mechanics with decreased compensation, good tolerance, no increase in symptoms with elevated plinth and cues for correct execution, Issued HEP HO, plan to assess pt tolerance next session and progress as able. Physical Therapy Plan Frequency and Duration Frequency of Treatment 2x/Week Duration of treatment (weeks) 12 Plan of Care Start Date 04/16/24 Plan of Care End Date 07/10/24 Therapeutic Interventions Therapeutic Interventions Balance Training,Gait Training ,Home Exercise Program,Joint Mobilizations,Manual Therapy, Neuromuscular Re-education, Patient/Caregiver Education, Self-Care/Home Management,Soft Tissue Mobilization,Taping, Therapeutic Activities, Therapeutic Exercises Modalities Cold Pack/Ice Massage,Electric Stimulation,Hot Packs, Infrared Therapy,Ultrasound Next Visit Focus/Plan Next Note Type Treatment Note Next Visit Plan check balance, assess doretha to HEP, Trial other hip flexor stretches next session due to pt difficulty on bed due to softness, Glute med strengthening/sit to stand with band with focus on full knee ext when reaching upright left LE (initiated STS w/ band 04/23/24, followup on carryover/tolerance next session careful re: hx of compression fx L1, 2; work on pelvis relalignment, gentle STM to back and LLE to improve mobility and ROM, ankle and knee jt mobs to improve mobility. HEP: try sit to stands, supine core (ex. Pelvic tilts, LTR, bridge, SL isometric press), consider clamshells, hip abd strength Try bike options, leg press, leg machines for gym training
--- NOTE | 2024-04-25 16:15 | PT.OTN ---
Current Diagnoses Other chronic pain (04/25/24) Low back pain, unspecified (04/25/24) Physical Therapy Treatment Note PT-OP-A Visit Information Start: 04/16/24 14:47 Freq: Status: Active Protocol: Document 04/25/24 15:20 [facility] (Rec: 04/25/24 16:12 [facility] [id number]) Out-Patient Physical Therapy Visit Information Visit Information Visit Type Treatment Note Visit Start Time 15:21 Visit Stop Time 16:02 Visit Number 09/05 Number of FRAMEWORK DEVELOPER Visits 0 PT-OP-B Current Condition Start: 04/16/24 14:47 Freq: Status: Active Protocol: Document 04/16/24 14:48 [facility] (Rec: 04/16/24 15:29 [facility] [id number]) Current Condition History of Current Condition Onset Date August 2022 Current Complaints LBP and leg pain History of Current Condition Pt had accident in August 2022 and fell of 8 ft ladder holding chainsaw. Dislocated L knee and had 2 different surgery (external fixation then internal fixation), lumbar spine compression fx ( L1 and 2) and has degneration of L4 and 5 w/compression of n root R>L L4&5. Did PT for several months and started seeing a pain management doctor and had horrible L ankle n pain and had injection that helped. 2nd injections in back helped w/n pain in thigh. DId PT from Jan 2023 ( [facility] until that point) October 2023. Finished d/t move to [place]. pain management doctor wanted her to continue. took a while to get into primary w/move. Feels like nerve pain is getting significantly worse and is able to do less. hx of fx of tibia w/screws (L) about 10 years ago d/t horse falling onto her and those screws had to be take out. Has appt w/pain management Jun 10 . 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 was up to 2500 steps in October in a day. Now it is harder to get to that amt d/t pain. LLE started to swell again and wearing compression socks during the day. Will be exhausted easily like going up a flight of stairs. Treatment Goals Patient/Caregiver Goals strength as much as can, try to avoid surgery, get gym program PT-OP-C Subjective Start: 04/16/24 14:47 Freq: Status: Active Protocol: Document 04/25/24 15:20 [facility] (Rec: 04/25/24 16:12 [facility] [id number]) OP-PT Subjective Patient Comments Patient Comments cmpliance w/exercises. felt good after last session PT-OP-D Balance Start: 04/16/24 14:47 Freq: Status: Active Protocol: Document 04/16/24 14:48 [facility] (Rec: 04/16/24 15:29 [facility] [id number]) Balance Tests Single Limb Standing Single Limb- Right 14 sec w/opp hip drop-back pain Single Limb- Left 6 sec w/opp hip drop PT-OP-F Manual Assessment Start: 04/16/24 14:47 Freq: Status: Active Protocol: Document 04/16/24 14:48 [facility] ([facility]16[facility]24 [id number] Manual Assessments Other Manual Assessments Other Manual Assessments redder around R scars, L>R inflmation, no difference in heat PT-OP-G Mobility & Gait Start: 04/16/24 14:47 Freq: Status: Active Protocol: Document 04/16/24 14:48 [facility] (Rec: 04/16/24 15:29 [facility] [id number]) OP Gait Assessment Comments Gait Comments dec LLE stance time, wears heel lift in L shoe per past PT recommenation, slower L knee flex/ext, dec push off, rigid spinal movement PT-OP-J Posture/Palpation/Skin Start: 04/16/24 14:47 Freq: Status: Active Protocol: Document 04/16/24 14:48 [facility] (Rec: 04/16/24 15:29 [facility] [id number]) Posture Evaluation Comments Posture Comments stands on lat aspcect of L foot w/dec big toe contact, shifts wt side to side, slight knee flex L, varus L knee, shifted onto RLE; R iliac crest higher and greater trocanter PT-OP-K Range of Motion Start: 04/16/24 14:47 Freq: Status: Active Protocol: Document 04/16/24 14:48 [facility] (Rec: 04/16/24 15:29 [facility] [id number]) Lumbar Spine Range of Motion Lumbar Spine Active Percentage Flexion 20 Extension 5 Rotation Left 30 Rotation Right 50 Lateral Flexion Left 60 Lateral Flexion Right 60 Knee Goniometric Range of Motion Knee L Flexion Active (degrees) 104 Extension Active (degrees) 14 Ankle and Foot Goniometric Range of Motion Ankle and Foot Right Active Dorsiflexion with Knee Flexed 2 Dorsiflexion with Knee Extended 0 Plantarflexion 55 Left Active Dorsiflexion with Knee Flexed 10 Dorsiflexion with Knee Extended 13 Plantarflexion 52 Comments lacking DF to neutral in both positions PT-OP-L Special Tests Start: 04/16/24 14:47 Freq: Status: Active Protocol: Document 04/16/24 14:48 [facility] (Rec: 04/16/24 15:29 [facility] [id number]) Special Tests Lumbar Spine Special Tests Straight Leg Raise Test Results neg B -able to get to 90 ~ w/ opp knee bent Slump Test Results slump pos R; B positive ext sit PT-OP-M Strength Start: 04/16/24 14:47 Freq: Status: Active Protocol: Document 04/16/24 14:48 [facility] (Rec: 04/16/24 15:29 [facility] [id number]) Hip Strength Hip Manual Muscle Testing Right Flexion (L2) 3+ Fair+ Abduction 4 Good External Rotation 4 Good Internal Rotation 4+ Good+ Left Flexion (L2) 3 Fair Abduction 3 Fair External Rotation 3 Fair Internal Rotation 3+ Fair+ Comments n pain w/ER Knee Strength Knee Manual Muscle Testing Right Flexion (S2) 4+ Good+ Extension (L3) 5 Normal Left Flexion (S2) 3+ Fair+ Extension (L3) 3+ Fair+ Ankle/Foot Strength Ankle and Foot Manual Muscle Testing Right Dorsiflexion (L4) 5 Normal Plantarflexion (S1) 5 Normal Inversion 5 Normal Eversion (S1) 5 Normal Comments PF tested seated Left Dorsiflexion (L4) 3+ Fair+ Plantarflexion (S1) 3+ Fair+ Inversion 4- Good- Eversion (S1) 4- Good- Comments pain PT-OP-Q Treatments Start: 04/16/24 14:47 Freq: Status: Active Protocol: Document 04/25/24 15:20 [facility] (Rec: 04/25/24 16:12 [facility] [id number]) Therapeutic Exercises Supine Exercises LTR Supine Exercise Name LTR Side bilateral Reps/Minutes 5sec x8 Comments cues comfortable range and core use Core Supine Exercise Name SL Isometric Side bilateral Resistance isometric Reps/Minutes 30 sec ea Comments cues for core activation, and breathwork piriformis stretch Supine Exercise Name HEP Side bilateral Equipment Used HEP Reps/Minutes one minute each LE Comments Verbal cues Mika stretch Supine Exercise Name w/opp knee to chest Side bilateral Reps/Minutes 1 min ea Comments w/gentle AROM bending Sitting Exercises seated hip abduction with band Side bilateral Resistance level 3 band Equipment Used HEP Reps/Minutes one minute Comments one minute for glute med activation. Other Exercises STS Other Exercise Name STS w/ band Resistance level 1 TB Equipment Used elevated plinth, slightly higher than standard chair height Reps/Minutes 10 Comments cues knee position and glute squeeze w/push thru feet Manual Therapy Treatment Consent Patient gave verbal consent for manual Yes treatment Soft Tissue Mobilization calf Body Location L Mobilization Type Rolling Intensity/Depth Moderate Comments w/APs left quad Mobilization Type Myofascial Release,Other Intensity/Depth Moderate Body Position Hooklying Joint Mobilizations left knee Comments PA tibia c/r; AP femur c/r; distraction, AP, PA fib ( tibfib proximal) patellofemoral sup, inf, med Taping KT Comments I strip under patella and to sides of patella PT-OP-T Assessment and Plan Start: 04/16/24 14:47 Freq: Status: Active Protocol: Document 04/25/24 15:20 [facility] (Rec: 04/25/24 16:12 [facility] [id number]) Physical Therapy Assessment Goals activity Short Term Goal (STG) Pt will report being able to go up a flight of stairs w/o c /o fatigue or pain greater than 4/10 STG Duration 05/29/24 Reed Cleaner Goal (LTG) Pt will report being able to sit and stand and alternate between the options in order to allow pt to return to working. LTG Duration 07/10/24 strength Short Term Goal (STG) Pt will be indep w/HEP and will be able to start working out at the gym w/PT direction. STG Duration 05/29/24 Reed Cleaner Goal (LTG) pt will score at least 4/5 on BLE MMT and at least 3/5 on LPM to show improved stability to allow greater ease w/ activity. LTG Duration 07/10/24 CHRIS Impairment 25/50 Short Term Goal (STG) Pt will improve CHRIS score to at least 19/50 to show improved functional ability. STG Duration 05/29/24 Reed Cleaner Goal (LTG) Pt will improve CHRIS score to at least 9/50 to show improved functional ability. LTG Duration 07/10/24 Assessment Summary Assessment Pt did well with manual with improvement from L knee AROM 111 to 121 and improved knee ext. Improved gait after manual and taping w/dec limp. Physical Therapy Plan Frequency and Duration Frequency of Treatment 2x/Week Duration of treatment (weeks) 12 Plan of Care Start Date 04/16/24 Plan of Care End Date 07/10/24 Next Visit Focus/Plan Next Note Type Treatment Note Next Visit Plan balance exercises, careful re: hx of compression fx L1, 2; work on pelvis relalignment, gentle STM to back and LLE to improve mobility and ROM, ankle and knee jt mobs to improve mobility. HEP: try sit to stands, supine core (ex. Pelvic tilts, LTR, bridge, SL isometric press), consider clamshells, hip abd strength Try bike options, leg press, leg machines for gym training
--- NOTE | 2024-04-29 16:32 | PT.OTN ---
Current Diagnoses Other chronic pain (04/29/24) Low back pain, unspecified (04/29/24) Physical Therapy Treatment Note PT-OP-A Visit Information Start: 04/16/24 14:47 Freq: Status: Active Protocol: Document 04/29/24 14:20 AB (Rec: 04/29/24 16:32 AB [id number]) Out-Patient Physical Therapy Visit Information Visit Information Visit Type Treatment Note Visit Start Time 14:34 Visit Stop Time 15:19 Visit Number 10/05 Number of YARN EXAMINER Visits 1 PT-OP-B Current Condition Start: 04/16/24 14:47 Freq: Status: Active Protocol: Document 04/16/24 14:48 LR (Rec: 04/16/24 15:29 [facility] [id number]) Current Condition History of Current Condition Onset Date August 2022 Current Complaints LBP and leg pain History of Current Condition Pt had accident in August 2022 and fell of 8 ft ladder holding chainsaw. Dislocated L knee and had 2 different surgery (external fixation then internal fixation), lumbar spine compression fx ( L1 and 2) and has degneration of L4 and 5 w/compression of n root R>L L4&5. Did PT for several months and started seeing a pain management doctor and had horrible L ankle n pain and had injection that helped. 2nd injections in back helped w/n pain in thigh. DId PT from Jan 2023 ( [facility] until that point) October 2023. Finished d/t move to [place]. pain management doctor wanted her to continue. took a while to get into primary w/move. Feels like nerve pain is getting significantly worse and is able to do less. hx of fx of tibia w/screws (L) about 10 years ago d/t horse falling onto her and those screws had to be take out. Has appt w/pain management Jun 10 . 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 was up to 2500 steps in October in a day. Now it is harder to get to that amt d/t pain. LLE started to swell again and wearing compression socks during the day. Will be exhausted easily like going up a flight of stairs. Treatment Goals Patient/Caregiver Goals strength as much as can, try to avoid surgery, get gym program PT-OP-C Subjective Start: 04/16/24 14:47 Freq: Status: Active Protocol: Document 04/29/24 14:20 AB (Rec: 04/29/24 16:32 AB [id number]) OP-PT Subjective Patient Comments Patient Comments Patient reports left hip pain (gestures to SI glute left LE 4/10 pain. Patient reports back of knee is better post previous session with Ermelinda. PT-OP-D Balance Start: 04/16/24 14:47 Freq: Status: Active Protocol: Document 04/16/24 14:48 [facility] (Rec: 04/16/24 15:29 [facility] [id number]) Balance Tests Single Limb Standing Single Limb- Right 14 sec w/opp hip drop-back pain Single Limb- Left 6 sec w/opp hip drop PT-OP-F Manual Assessment Start: 04/16/24 14:47 Freq: Status: Active Protocol: Document 04/16/24 14:48 [facility] (Rec: 04/16/24 15:29 [facility] [id number]) Manual Assessments Other Manual Assessments Other Manual Assessments redder around R scars, L>R inflmation, no difference in heat PT-OP-G Mobility & Gait Start: 04/16/24 14:47 Freq: Status: Active Protocol: Document 04/16/24 14:48 [facility] (Rec: 04/16/24 15:29 [facility] [id number]) OP Gait Assessment Comments Gait Comments dec LLE stance time, wears heel lift in L shoe per past PT recommenation, slower L knee flex/ext, dec push off, rigid spinal movement PT-OP-J Posture/Palpation/Skin Start: 04/16/24 14:47 Freq: Status: Active Protocol: Document 04/16/24 14:48 [facility] (Rec: 04/16/24 15:29 [facility] [id number]) Posture Evaluation Comments Posture Comments stands on lat aspcect of L foot w/dec big toe contact, shifts wt side to side, slight knee flex L, varus L knee, shifted onto RLE; R iliac crest higher and greater trocanter PT-OP-K Range of Motion Start: 04/16/24 14:47 Freq: Status: Active Protocol: Document 04/16/24 14:48 [facility] (Rec: 04/16/24 15:29 [facility] [id number]) Lumbar Spine Range of Motion Lumbar Spine Active Percentage Flexion 20 Extension 5 Rotation Left 30 Rotation Right 50 Lateral Flexion Left 60 Lateral Flexion Right 60 Knee Goniometric Range of Motion Knee L Flexion Active (degrees) 104 Extension Active (degrees) 14 Ankle and Foot Goniometric Range of Motion Ankle and Foot Right Active Dorsiflexion with Knee Flexed 2 Dorsiflexion with Knee Extended 0 Plantarflexion 55 Left Active Dorsiflexion with Knee Flexed 10 Dorsiflexion with Knee Extended 13 Plantarflexion 52 Comments lacking DF to neutral in both positions PT-OP-L Special Tests Start: 04/16/24 14:47 Freq: Status: Active Protocol: Document 04/16/24 14:48 [facility] (Rec: 04/16/24 15:29 [facility] [id number]) Special Tests Lumbar Spine Special Tests Straight Leg Raise Test Results neg B -able to get to 90 ~ w/ opp knee bent Slump Test Results slump pos R; B positive ext sit PT-OP-M Strength Start: 04/16/24 14:47 Freq: Status: Active Protocol: Document 04/16/24 14:48 [facility] (Rec: 04/16/24 15:29 [facility] [id number]) Hip Strength Hip Manual Muscle Testing Right Flexion (L2) 3+ Fair+ Abduction 4 Good External Rotation 4 Good Internal Rotation 4+ Good+ Left Flexion (L2) 3 Fair Abduction 3 Fair External Rotation 3 Fair Internal Rotation 3+ Fair+ Comments n pain w/ER Knee Strength Knee Manual Muscle Testing Right Flexion (S2) 4+ Good+ Extension (L3) 5 Normal Left Flexion (S2) 3+ Fair+ Extension (L3) 3+ Fair+ Ankle/Foot Strength Ankle and Foot Manual Muscle Testing Right Dorsiflexion (L4) 5 Normal Plantarflexion (S1) 5 Normal Inversion 5 Normal Eversion (S1) 5 Normal Comments PF tested seated Left Dorsiflexion (L4) 3+ Fair+ Plantarflexion (S1) 3+ Fair+ Inversion 4- Good- Eversion (S1) 4- Good- Comments pain PT-OP-Q Treatments Start: 04/16/24 14:47 Freq: Status: Active Protocol: Document 04/29/24 14:20 AB (Rec: 04/29/24 16:32 AB [id number]) Therapeutic Exercises Supine Exercises piriformis stretch Supine Exercise Name HEP Side bilateral Equipment Used HEP Reps/Minutes one minute each LE Comments pre MET post manual Mika stretch Supine Exercise Name w/opp knee to chest Side bilateral Reps/Minutes 1 min ea Comments Pre MET post manual Sidelying Exercises clamshell in side plank Side bilateral Resistance umkumiut green band level 3 Equipment Used HEP Reps/Minutes X5 without band each side X 5 with level 3 Sitting Exercises seated hip abduction with band Side bilateral Resistance level5 band to HEP Equipment Used HEP Reps/Minutes one minute Comments one minute for glute med activation. Other Exercises STS Other Exercise Name STS w/ band To HEP Resistance level 3 band Reps/Minutes X10 without band X 10 with band Comments Verbal cues for hip shima Manual Therapy Treatment Consent Patient gave verbal consent for manual Yes treatment Soft Tissue Mobilization hips, SI area Body Location Left SI, glute/piriformis/ hip flexors Mobilization Type Cross-Friction,Rolling, Sustained Pressure Intensity/Depth Moderate Body Position Hooklying Comments and sidelying Joint Mobilizations left knee Comments PA X 15 IV AP III x 5 tibia on fembur Taping KT Comments I strip under patella and to sides of patella Manual Techniques MET for right AI left PI Type and pubic shotgun Body Location SI Body Position Hooklying Reps/Duration 6X 6 seconds each PT-OP-T Assessment and Plan Start: 04/16/24 14:47 Freq: Status: Active Protocol: Document 04/29/24 14:20 AB (Rec: 04/29/24 16:32 AB [id number]) Physical Therapy Assessment Goals activity Short Term Goal (STG) Pt will report being able to go up a flight of stairs w/o c /o fatigue or pain greater than 4/10 STG Duration 05/29/24 Shelter Goal (LTG) Pt will report being able to sit and stand and alternate between the options in order to allow pt to return to working. LTG Duration 07/10/24 strength Short Term Goal (STG) Pt will be indep w/HEP and will be able to start working out at the gym w/PT direction. STG Duration 05/29/24 Computer Processing Scheduler Goal (LTG) pt will score at least 4/5 on BLE MMT and at least 3/5 on LPM to show improved stability to allow greater ease w/ activity. LTG Duration 07/10/24 CHRIS Impairment 25/50 Short Term Goal (STG) Pt will improve CHRIS score to at least 19/50 to show improved functional ability. STG Duration 05/29/24 Computer Processing Scheduler Goal (LTG) Pt will improve CHRIS score to at least 9/50 to show improved functional ability. LTG Duration 07/10/24 Assessment Summary Assessment Shama rates left hip pain 2.5/ 10 to 310 end of session. Physical Therapy Plan Frequency and Duration Frequency of Treatment 2x/Week Duration of treatment (weeks) 12 Plan of Care Start Date 04/16/24 Plan of Care End Date 07/10/24 Next Visit Focus/Plan Next Note Type Treatment Note Next Visit Plan balance exercises, careful re: hx of compression fx L1, 2; work on pelvis relalignment, gentle STM to back and LLE to improve mobility and ROM, ankle and knee jt mobs to improve mobility. HEP: try sit to stands, supine core (ex. Pelvic tilts, LTR, bridge, SL isometric press), hip abd strength Try bike options, leg press, leg machines for gym training
--- NOTE | 2024-05-01 18:07 | PT.OTN ---
Current Diagnoses Other chronic pain (05/01/24) Low back pain, unspecified (05/01/24) Physical Therapy Treatment Note PT-OP-A Visit Information Start: 04/16/24 14:47 Freq: Status: Active Protocol: Document 05/01/24 14:38 [facility] (Rec: 05/01/24 18:07 [facility] [id number]) Out-Patient Physical Therapy Visit Information Visit Information Visit Type Treatment Note Visit Start Time 14:35 Visit Stop Time 15:15 Visit Number 11/05 Number of CLINICAL BIOSTATISTICS DIRECTOR Visits 0 PT-OP-B Current Condition Start: 04/16/24 14:47 Freq: Status: Active Protocol: Document 04/16/24 14:48 [facility] (Rec: 04/16/24 15:29 [facility] [id number]) Current Condition History of Current Condition Onset Date August 2022 Current Complaints LBP and leg pain History of Current Condition Pt had accident in August 2022 and fell of 8 ft ladder holding chainsaw. Dislocated L knee and had 2 different surgery (external fixation then internal fixation), lumbar spine compression fx ( L1 and 2) and has degneration of L4 and 5 w/compression of n root R>L L4&5. Did PT for several months and started seeing a pain management doctor and had horrible L ankle n pain and had injection that helped. 2nd injections in back helped w/n pain in thigh. DId PT from Jan 2023 ( [facility] until that point) October 2023. Finished d/t move to [place]. pain management doctor wanted her to continue. took a while to get into primary w/move. Feels like nerve pain is getting significantly worse and is able to do less. hx of fx of tibia w/screws (L) about 10 years ago d/t horse falling onto her and those screws had to be take out. Has appt w/pain management Jun 10 . 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 was up to 2500 steps in October in a day. Now it is harder to get to that amt d/t pain. LLE started to swell again and wearing compression socks during the day. Will be exhausted easily like going up a flight of stairs. Treatment Goals Patient/Caregiver Goals strength as much as can, try to avoid surgery, get gym program PT-OP-C Subjective Start: 04/16/24 14:47 Freq: Status: Active Protocol: Document 05/01/24 14:38 LR (Rec: 05/01/24 18:07 [facility] [id number]) OP-PT Subjective Patient Comments Patient Comments Pt reports sore after last session about 2 days later in L hip and back. pain in L hip and back upon presenting today . felt good when leaving initially PT-OP-D Balance Start: 04/16/24 14:47 Freq: Status: Active Protocol: Document 04/16/24 14:48 [facility] (Rec: 04/16/24 15:29 [id number]) Balance Tests Single Limb Standing Single Limb- Right 14 sec w/opp hip drop-back pain Single Limb- Left 6 sec w/opp hip drop PT-OP-F Manual Assessment Start: 04/16/24 14:47 Freq: Status: Active Protocol: Document 04/16/24 14:48 [facility] (Rec: 04/16/24 15:29 [facility] [id number]) Manual Assessments Other Manual Assessments Other Manual Assessments redder around R scars, L>R inflmation, no difference in heat PT-OP-G Mobility & Gait Start: 04/16/24 14:47 Freq: Status: Active Protocol: Document 04/16/24 14:48 [facility] (Rec: 04/16/24 15:29 [facility] [id number]) OP Gait Assessment Comments Gait Comments dec LLE stance time, wears heel lift in L shoe per past PT recommenation, slower L knee flex/ext, dec push off, rigid spinal movement PT-OP-J Posture/Palpation/Skin Start: 04/16/24 14:47 Freq: Status: Active Protocol: Document 04/16/24 14:48 [facility] (Rec: 04/16/24 15:29 [facility] [id number]) Posture Evaluation Comments Posture Comments stands on lat aspcect of L foot w/dec big toe contact, shifts wt side to side, slight knee flex L, varus L knee, shifted onto RLE; R iliac crest higher and greater trocanter PT-OP-K Range of Motion Start: 04/16/24 14:47 Freq: Status: Active Protocol: Document 04/16/24 14:48 [facility] (Rec: 04/16/24 15:29 [facility] [id number]) Lumbar Spine Range of Motion Lumbar Spine Active Percentage Flexion 20 Extension 5 Rotation Left 30 Rotation Right 50 Lateral Flexion Left 60 Lateral Flexion Right 60 Knee Goniometric Range of Motion Knee L Flexion Active (degrees) 104 Extension Active (degrees) 14 Ankle and Foot Goniometric Range of Motion Ankle and Foot Right Active Dorsiflexion with Knee Flexed 2 Dorsiflexion with Knee Extended 0 Plantarflexion 55 Left Active Dorsiflexion with Knee Flexed 10 Dorsiflexion with Knee Extended 13 Plantarflexion 52 Comments lacking DF to neutral in both positions PT-OP-L Special Tests Start: 04/16/24 14:47 Freq: Status: Active Protocol: Document 04/16/24 14:48 [facility] (Rec: 04/16/24 15:29 [facility] [id number]) Special Tests Lumbar Spine Special Tests Straight Leg Raise Test Results neg B -able to get to 90 ~ w/ opp knee bent Slump Test Results slump pos R; B positive ext sit PT-OP-M Strength Start: 04/16/24 14:47 Freq: Status: Active Protocol: Document 04/16/24 14:48 [facility] (Rec: 04/16/24 15:29 [facility] [id number]) Hip Strength Hip Manual Muscle Testing Right Flexion (L2) 3+ Fair+ Abduction 4 Good External Rotation 4 Good Internal Rotation 4+ Good+ Left Flexion (L2) 3 Fair Abduction 3 Fair External Rotation 3 Fair Internal Rotation 3+ Fair+ Comments n pain w/ER Knee Strength Knee Manual Muscle Testing Right Flexion (S2) 4+ Good+ Extension (L3) 5 Normal Left Flexion (S2) 3+ Fair+ Extension (L3) 3+ Fair+ Ankle/Foot Strength Ankle and Foot Manual Muscle Testing Right Dorsiflexion (L4) 5 Normal Plantarflexion (S1) 5 Normal Inversion 5 Normal Eversion (S1) 5 Normal Comments PF tested seated Left Dorsiflexion (L4) 3+ Fair+ Plantarflexion (S1) 3+ Fair+ Inversion 4- Good- Eversion (S1) 4- Good- Comments pain PT-OP-Q Treatments Start: 04/16/24 14:47 Freq: Status: Active Protocol: Document 05/01/24 14:38 [facility] (Rec: 05/01/24 18:07 [facility] [id number]) Therapeutic Exercises Supine Exercises bridge Supine Exercise Name cues segmental lift and glute engagement Side bilateral Reps/Minutes 10 Core Supine Exercise Name SL Isometric Side bilateral Resistance isometric Reps/Minutes 30 sec ea Comments cues for core activation, and breathwork Sidelying Exercises clamshell in side plank Sidelying Exercise Name sideplank Side right Comments stopped d/t back pain Sitting Exercises seated hip abduction with band Side bilateral Resistance Lvl 3 (tried lvl 5 but dec range and inc pain) Equipment Used HEP Reps/Minutes one minute Comments one minute for glute med activation. Other Exercises STS Other Exercise Name STS w/ band To HEP Resistance lvl 1 band, lvl 2, lvl 3 Reps/Minutes X 6 with ea resistance Comments drop to lvl 1 band as painful w/others Manual Therapy Treatment Consent Patient gave verbal consent for manual Yes treatment Soft Tissue Mobilization hips, SI area Body Location Left SI, glute/piriformis Mobilization Type Instrument Assisted,Rolling, Sustained Pressure Intensity/Depth Moderate Body Position Sidelying Comments w/cups and manually Joint Mobilizations hip Comments L inf med glide w/abd c/r; inf lat glide for IR/flex c/r innominate Comments L IR supine c/r; L abd s/l c/r PT-OP-T Assessment and Plan Start: 04/16/24 14:47 Freq: Status: Active Protocol: Document 05/01/24 14:38 [facility] (Rec: 05/01/24 18:07 [facility] [id number]) Physical Therapy Assessment Goals activity Short Term Goal (STG) Pt will report being able to go up a flight of stairs w/o c /o fatigue or pain greater than 4/10 STG Duration 05/29/24 Lubricator Granulator Goal (LTG) Pt will report being able to sit and stand and alternate between the options in order to allow pt to return to working. LTG Duration 07/10/24 strength Short Term Goal (STG) Pt will be indep w/HEP and will be able to start working out at the gym w/PT direction. STG Duration 05/29/24 Lubricator Granulator Goal (LTG) pt will score at least 4/5 on BLE MMT and at least 3/5 on LPM to show improved stability to allow greater ease w/ activity. LTG Duration 07/10/24 CHRIS Impairment 25/50 Short Term Goal (STG) Pt will improve CHRIS score to at least 19/50 to show improved functional ability. STG Duration 05/29/24 Lubricator Granulator Goal (LTG) Pt will improve CHRIS score to at least 9/50 to show improved functional ability. LTG Duration 07/10/24 Assessment Summary Assessment P hector 121 AROM L knee flex upon presenting today. Had to dec resistance w/exercises again d/t pain. Stopped sideplank at this time d/t pain in back during exercise so adjusted to other glute/ core exercise and pt tolerated bridges well w/cueing. Dec back and hip pain after session w/improved gait pattern Physical Therapy Plan Frequency and Duration Frequency of Treatment 2x/Week Duration of treatment (weeks) 12 Plan of Care Start Date 04/16/24 Plan of Care End Date 07/10/24 Next Visit Focus/Plan Next Note Type Treatment Note Next Visit Plan balance exercises, careful re: hx of compression fx L1, 2; work on pelvis relalignment, gentle STM to back and LLE to improve mobility and ROM, ankle and knee jt mobs to improve mobility. careful w/exercises to avoid discomfort in painful areas as this gives her delayed flare up. Try bike options, leg press, leg machines for gym training
--- NOTE | 2024-05-06 14:35 | PT.OTN ---
Current Diagnoses Other chronic pain (05/06/24) Low back pain, unspecified (05/06/24) Physical Therapy Treatment Note PT-OP-A Visit Information Start: 04/16/24 14:47 Freq: Status: Active Protocol: Document 05/06/24 13:48 [facility] (Rec: 05/06/24 14:35 [facility] [id number]) Out-Patient Physical Therapy Visit Information Visit Information Visit Type Treatment Note Visit Start Time 13:49 Visit Stop Time 14:30 Visit Number 12/05 Number of LOAN COLLECTOR Visits 0 PT-OP-B Current Condition Start: 04/16/24 14:47 Freq: Status: Active Protocol: Document 04/16/24 14:48 [facility] (Rec: 04/16/24 15:29 [facility] [id number]) Current Condition History of Current Condition Onset Date August 2022 Current Complaints LBP and leg pain History of Current Condition Pt had accident in August 2022 and fell of 8 ft ladder holding chainsaw. Dislocated L knee and had 2 different surgery (external fixation then internal fixation), lumbar spine compression fx ( L1 and 2) and has degneration of L4 and 5 w/compression of n root R>L L4&5. Did PT for several months and started seeing a pain management doctor and had horrible L ankle n pain and had injection that helped. 2nd injections in back helped w/n pain in thigh. DId PT from Jan 2023 ( [facility] until that point) October 2023. Finished d/t move to [place]. pain management doctor wanted her to continue. took a while to get into primary w/move. Feels like nerve pain is getting significantly worse and is able to do less. hx of fx of tibia w/screws (L) about 10 years ago d/t horse falling onto her and those screws had to be take out. Has appt w/pain management Jun 10 . 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 was up to 2500 steps in October in a day. Now it is harder to get to that amt d/t pain. LLE started to swell again and wearing compression socks during the day. Will be exhausted easily like going up a flight of stairs. Treatment Goals Patient/Caregiver Goals strength as much as can, try to avoid surgery, get gym program PT-OP-C Subjective Start: 04/16/24 14:47 Freq: Status: Active Protocol: Document 05/06/24 13:48 [facility] (Rec: 05/06/24 14:35 [id number] OP-PT Subjective Patient Comments Patient Comments Pt reports knee seems to be stiff in post aspect. back was sore after last session but the next day it was improved PT-OP-D Balance Start: 04/16/24 14:47 Freq: Status: Active Protocol: Document 04/16/24 14:48 [facility] (Rec: 04/16/24 15:29 [id number] Balance Tests Single Limb Standing Single Limb- Right 14 sec w/opp hip drop-back pain Single Limb- Left 6 sec w/opp hip drop PT-OP-F Manual Assessment Start: 04/16/24 14:47 Freq: Status: Active Protocol: Document 04/16/24 14:48 [facility] (Rec: 04/16/24 15:29 [id number]) Manual Assessments Other Manual Assessments Other Manual Assessments redder around R scars, L>R inflmation, no difference in heat PT-OP-G Mobility & Gait Start: 04/16/24 14:47 Freq: Status: Active Protocol: Document 04/16/24 14:48 [facility] (Rec: 04/16/24 15:29 [id number]) OP Gait Assessment Comments Gait Comments dec LLE stance time, wears heel lift in L shoe per past PT recommenation, slower L knee flex/ext, dec push off, rigid spinal movement PT-OP-J Posture/Palpation/Skin Start: 04/16/24 14:47 Freq: Status: Active Protocol: Document 04/16/24 14:48 [facility] (Rec: 04/16/24 15:29 [id number]) Posture Evaluation Comments Posture Comments stands on lat aspcect of L foot w/dec big toe contact, shifts wt side to side, slight knee flex L, varus L knee, shifted onto RLE; R iliac crest higher and greater trocanter PT-OP-K Range of Motion Start: 04/16/24 14:47 Freq: Status: Active Protocol: Document 04/16/24 14:48 [facility] (Rec: 04/16/24 15:29 [facility] [id number]) Lumbar Spine Range of Motion Lumbar Spine Active Percentage Flexion 20 Extension 5 Rotation Left 30 Rotation Right 50 Lateral Flexion Left 60 Lateral Flexion Right 60 Knee Goniometric Range of Motion Knee L Flexion Active (degrees) 104 Extension Active (degrees) 14 Ankle and Foot Goniometric Range of Motion Ankle and Foot Right Active Dorsiflexion with Knee Flexed 2 Dorsiflexion with Knee Extended 0 Plantarflexion 55 Left Active Dorsiflexion with Knee Flexed 10 Dorsiflexion with Knee Extended 13 Plantarflexion 52 Comments lacking DF to neutral in both positions PT-OP-L Special Tests Start: 04/16/24 14:47 Freq: Status: Active Protocol: Document 04/16/24 14:48 [facility] (Rec: 04/16/24 15:29 [facility] [id number]) Special Tests Lumbar Spine Special Tests Straight Leg Raise Test Results neg B -able to get to 90 ~ w/ opp knee bent Slump Test Results slump pos R; B positive ext sit PT-OP-M Strength Start: 04/16/24 14:47 Freq: Status: Active Protocol: Document 04/16/24 14:48 [facility] (Rec: 04/16/24 15:29 [facility] [id number]) Hip Strength Hip Manual Muscle Testing Right Flexion (L2) 3+ Fair+ Abduction 4 Good External Rotation 4 Good Internal Rotation 4+ Good+ Left Flexion (L2) 3 Fair Abduction 3 Fair External Rotation 3 Fair Internal Rotation 3+ Fair+ Comments n pain w/ER Knee Strength Knee Manual Muscle Testing Right Flexion (S2) 4+ Good+ Extension (L3) 5 Normal Left Flexion (S2) 3+ Fair+ Extension (L3) 3+ Fair+ Ankle/Foot Strength Ankle and Foot Manual Muscle Testing Right Dorsiflexion (L4) 5 Normal Plantarflexion (S1) 5 Normal Inversion 5 Normal Eversion (S1) 5 Normal Comments PF tested seated Left Dorsiflexion (L4) 3+ Fair+ Plantarflexion (S1) 3+ Fair+ Inversion 4- Good- Eversion (S1) 4- Good- Comments pain PT-OP-Q Treatments Start: 04/16/24 14:47 Freq: Status: Active Protocol: Document 05/06/24 13:48 [facility] (Rec: 05/06/24 14:35 [facility] [id number]) Gym Equipment Cable Column (Body Solid) Hip Adduction Resistance 2 Reps/Time 15 Hip Abduction Resistance 2 Reps/Time 15 Leg Curl Resistance 2 Reps/Time 15 Manual Therapy Treatment Consent Patient gave verbal consent for manual Yes treatment Soft Tissue Mobilization adductor Body Location L Mobilization Type Rolling calf Body Location L calf and HS Mobilization Type Rolling Intensity/Depth Moderate Comments w/APs in knee flex left quad Mobilization Type Myofascial Release,Other Intensity/Depth Moderate Body Position Hooklying Comments in knee flex Joint Mobilizations left knee Comments PA tibia APs, PA fibula w/APs Taping KT Comments I strip under patella and to sides of patella PT-OP-T Assessment and Plan Start: 04/16/24 14:47 Freq: Status: Active Protocol: Document 05/06/24 13:48 [facility] (Rec: 05/06/24 14:35 [facility] [id number]) Physical Therapy Assessment Goals activity Short Term Goal (STG) Pt will report being able to go up a flight of stairs w/o c /o fatigue or pain greater than 4/10 STG Duration 05/29/24 Data Control Assistant Goal (LTG) Pt will report being able to sit and stand and alternate between the options in order to allow pt to return to working. LTG Duration 07/10/24 strength Short Term Goal (STG) Pt will be indep w/HEP and will be able to start working out at the gym w/PT direction. STG Duration 05/29/24 Correction Goal (LTG) pt will score at least 4/5 on BLE MMT and at least 3/5 on LPM to show improved stability to allow greater ease w/ activity. LTG Duration 07/10/24 CHRIS Impairment 25/50 Short Term Goal (STG) Pt will improve CHRIS score to at least 19/50 to show improved functional ability. STG Duration 05/29/24 Correction Goal (LTG) Pt will improve CHRIS score to at least 9/50 to show improved functional ability. LTG Duration 07/10/24 Assessment Summary Assessment Pt had less post knee tension after manual treatment today. Did well with exercise and set up for machines w/cues. Physical Therapy Plan Frequency and Duration Frequency of Treatment 2x/Week Duration of treatment (weeks) 12 Plan of Care Start Date 04/16/24 Plan of Care End Date 07/10/24 Next Visit Focus/Plan Next Note Type Treatment Note Next Visit Plan balance exercises, careful re: hx of compression fx L1, 2; work on pelvis relalignment, gentle STM to back and LLE to improve mobility and ROM, ankle and knee jt mobs to improve mobility. careful w/exercises to avoid discomfort in painful areas as this gives her delayed flare up. Try bike options, leg press edu, review leg machines for gym training
--- NOTE | 2024-05-10 14:26 | PT.OTN ---
Addendum entered and electronically signed by Gracia Reyes 05/10/24 14:29: Error Original Note: Current Diagnoses Other chronic pain (05/06/24) Low back pain, unspecified (05/06/24) Physical Therapy Treatment Note PT-OP-A Visit Information Start: 04/16/24 14:47 Freq: Status: Active Protocol: Document 05/10/24 13:02 AB (Rec: 05/10/24 14:26 AB [id number]) Out-Patient Physical Therapy Visit Information Visit Information Visit Type Treatment Note Visit Number 01/05 Number of PRODUCTION HELPER Visits 1 PT-OP-B Current Condition Start: 04/16/24 14:47 Freq: Status: Active Protocol: Document 04/16/24 14:48 [facility] (Rec: 04/16/24 15:29 [facility] [id number]) Current Condition History of Current Condition Onset Date August 2022 Current Complaints LBP and leg pain History of Current Condition Pt had accident in August 2022 and fell of 8 ft ladder holding chainsaw. Dislocated L knee and had 2 different surgery (external fixation then internal fixation), lumbar spine compression fx ( L1 and 2) and has degneration of L4 and 5 w/compression of n root R>L L4&5. Did PT for several months and started seeing a pain management doctor and had horrible L ankle n pain and had injection that helped. 2nd injections in back helped w/n pain in thigh. DId PT from Jan 2023 ( [facility] until that point) October 2023. Finished d/t move to [place]. pain management doctor wanted her to continue. took a while to get into primary w/move. Feels like nerve pain is getting significantly worse and is able to do less. hx of fx of tibia w/screws (L) about 10 years ago d/t horse falling onto her and those screws had to be take out. Has appt w/pain management Jun 10 . 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 was up to 2500 steps in October in a day. Now it is harder to get to that amt d/t pain. LLE started to swell again and wearing compression socks during the day. Will be exhausted easily like going up a flight of stairs. Treatment Goals Patient/Caregiver Goals strength as much as can, try to avoid surgery, get gym program PT-OP-C Subjective Start: 04/16/24 14:47 Freq: Status: Active Protocol: Document 05/06/24 13:48 [facility] (Rec: 05/06/24 14:35 [id number] OP-PT Subjective Patient Comments Patient Comments Pt reports knee seems to be stiff in post aspect. back was sore after last session but the next day it was improved PT-OP-D Balance Start: 04/16/24 14:47 Freq: Status: Active Protocol: Document 04/16/24 14:48 [facility] (Rec: 04/16/24 15:29 [id number]) Balance Tests Single Limb Standing Single Limb- Right 14 sec w/opp hip drop-back pain Single Limb- Left 6 sec w/opp hip drop PT-OP-F Manual Assessment Start: 04/16/24 14:47 Freq: Status: Active Protocol: Document 04/16/24 14:48 [facility] (Rec: 04/16/24 15:29 [id number]) Manual Assessments Other Manual Assessments Other Manual Assessments redder around R scars, L>R inflmation, no difference in heat PT-OP-G Mobility & Gait Start: 04/16/24 14:47 Freq: Status: Active Protocol: Document 04/16/24 14:48 [facility] (Rec: 04/16/24 15:29 [id number]) OP Gait Assessment Comments Gait Comments dec LLE stance time, wears heel lift in L shoe per past PT recommenation, slower L knee flex/ext, dec push off, rigid spinal movement PT-OP-J Posture/Palpation/Skin Start: 04/16/24 14:47 Freq: Status: Active Protocol: Document 04/16/24 14:48 [facility] (Rec: 04/16/24 15:29 [facility] [id number]) Posture Evaluation Comments Posture Comments stands on lat aspcect of L foot w/dec big toe contact, shifts wt side to side, slight knee flex L, varus L knee, shifted onto RLE; R iliac crest higher and greater trocanter PT-OP-K Range of Motion Start: 04/16/24 14:47 Freq: Status: Active Protocol: Document 04/16/24 14:48 [facility] (Rec: 04/16/24 15:29 [id number]) Lumbar Spine Range of Motion Lumbar Spine Active Percentage Flexion 20 Extension 5 Rotation Left 30 Rotation Right 50 Lateral Flexion Left 60 Lateral Flexion Right 60 Knee Goniometric Range of Motion Knee L Flexion Active (degrees) 104 Extension Active (degrees) 14 Ankle and Foot Goniometric Range of Motion Ankle and Foot Right Active Dorsiflexion with Knee Flexed 2 Dorsiflexion with Knee Extended 0 Plantarflexion 55 Left Active Dorsiflexion with Knee Flexed 10 Dorsiflexion with Knee Extended 13 Plantarflexion 52 Comments lacking DF to neutral in both positions PT-OP-L Special Tests Start: 04/16/24 14:47 Freq: Status: Active Protocol: Document 04/16/24 14:48 [facility] (Rec: 04/16/24 15:29 [facility] [id number]) Special Tests Lumbar Spine Special Tests Straight Leg Raise Test Results neg B -able to get to 90 ~ w/ opp knee bent Slump Test Results slump pos R; B positive ext sit PT-OP-M Strength Start: 04/16/24 14:47 Freq: Status: Active Protocol: Document 04/16/24 14:48 [facility] (Rec: 04/16/24 15:29 [facility] [id number]) Hip Strength Hip Manual Muscle Testing Right Flexion (L2) 3+ Fair+ Abduction 4 Good External Rotation 4 Good Internal Rotation 4+ Good+ Left Flexion (L2) 3 Fair Abduction 3 Fair External Rotation 3 Fair Internal Rotation 3+ Fair+ Comments n pain w/ER Knee Strength Knee Manual Muscle Testing Right Flexion (S2) 4+ Good+ Extension (L3) 5 Normal Left Flexion (S2) 3+ Fair+ Extension (L3) 3+ Fair+ Ankle/Foot Strength Ankle and Foot Manual Muscle Testing Right Dorsiflexion (L4) 5 Normal Plantarflexion (S1) 5 Normal Inversion 5 Normal Eversion (S1) 5 Normal Comments PF tested seated Left Dorsiflexion (L4) 3+ Fair+ Plantarflexion (S1) 3+ Fair+ Inversion 4- Good- Eversion (S1) 4- Good- Comments pain PT-OP-Q Treatments Start: 04/16/24 14:47 Freq: Status: Active Protocol: Document 05/06/24 13:48 [facility] (Rec: 05/06/24 14:35 [facility] [id number]) Gym Equipment Cable Column (Body Solid) Hip Adduction Resistance 2 Reps/Time 15 Hip Abduction Resistance 2 Reps/Time 15 Leg Curl Resistance 2 Reps/Time 15 Manual Therapy Treatment Consent Patient gave verbal consent for manual Yes treatment Soft Tissue Mobilization adductor Body Location L Mobilization Type Rolling calf Body Location L calf and HS Mobilization Type Rolling Intensity/Depth Moderate Comments w/APs in knee flex left quad Mobilization Type Myofascial Release,Other Intensity/Depth Moderate Body Position Hooklying Comments in knee flex Joint Mobilizations left knee Comments PA tibia APs, PA fibula w/APs Taping KT Comments I strip under patella and to sides of patella PT-OP-T Assessment and Plan Start: 04/16/24 14:47 Freq: Status: Active Protocol: Document 05/10/24 13:02 AB (Rec: 05/10/24 14:26 AB [id number]) Physical Therapy Assessment Goals activity Short Term Goal (STG) Pt will report being able to go up a flight of stairs w/o c /o fatigue or pain greater than 4/10 STG Duration 05/29/24 Relocation Director Goal (LTG) Pt will report being able to sit and stand and alternate between the options in order to allow pt to return to working. LTG Duration 07/10/24 strength Short Term Goal (STG) Pt will be indep w/HEP and will be able to start working out at the gym w/PT direction. STG Duration 05/29/24 Relocation Director Goal (LTG) pt will score at least 4/5 on BLE MMT and at least 3/5 on LPM to show improved stability to allow greater ease w/ activity. LTG Duration 07/10/24 CHRIS Impairment 25/50 Short Term Goal (STG) Pt will improve CHRIS score to at least 19/50 to show improved functional ability. STG Duration 05/29/24 Relocation Director Goal (LTG) Pt will improve CHRIS score to at least 9/50 to show improved functional ability. LTG Duration 07/10/24 Physical Therapy Plan Frequency and Duration Frequency of Treatment 2x/Week Duration of treatment (weeks) 12 Plan of Care Start Date 04/16/24 Plan of Care End Date 07/10/24 Next Visit Focus/Plan Next Note Type Treatment Note Next Visit Plan balance exercises, careful re: hx of compression fx L1, 2; work on pelvis relalignment, gentle STM to back and LLE to improve mobility and ROM, ankle and knee jt mobs to improve mobility. careful w/exercises to avoid discomfort in painful areas as this gives her delayed flare up. Try bike options, leg press edu, review leg machines for gym training
--- NOTE | 2024-05-10 16:23 | PT.OTN ---
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 [id number]) Current Condition History of Current Condition Onset Date August 2022 Current Complaints LBP and leg pain History of Current Condition Pt had accident in August 2022 and fell of 8 ft ladder holding chainsaw. Dislocated L knee and had 2 different surgery (external fixation then internal fixation), lumbar spine compression fx ( L1 and 2) and has degneration of L4 and 5 w/compression of n root R>L L4&5. Did PT for several months and started seeing a pain management doctor and had horrible L ankle n pain and had injection that helped. 2nd injections in back helped w/n pain in thigh. DId PT from Jan 2023 ( [facility] until that point) October 2023. Finished d/t move to [place]. pain management doctor wanted her to continue. took a while to get into primary w/move. Feels like nerve pain is getting significantly worse and is able to do less. hx of fx of tibia w/screws (L) about 10 years ago d/t horse falling onto her and those screws had to be take out. Has appt w/pain management Jun 10 . 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 was up to 2500 steps in October in a day. Now it is harder to get to that amt d/t pain. LLE started to swell again and wearing compression socks during the day. Will be exhausted easily like going up a flight of stairs. Treatment Goals Patient/Caregiver Goals strength as much as can, try to avoid surgery, get gym program PT-OP-C Subjective Start: 04/16/24 14:47 Freq: Status: Active Protocol: Document 05/10/24 14:30 AB (Rec: 05/10/24 16:23 AB [id number]) OP-PT Subjective Patient Comments Patient Comments Patient reports 4/10 left hip and knee pain start of session . PT-OP-D Balance Start: 04/16/24 14:47 Freq: Status: Active Protocol: Document 04/16/24 14:48 [facility] (Rec: 04/16/24 15:29 [facility] [id number]) Balance Tests Single Limb Standing Single Limb- Right 14 sec w/opp hip drop-back pain Single Limb- Left 6 sec w/opp hip drop PT-OP-F Manual Assessment Start: 04/16/24 14:47 Freq: Status: Active Protocol: Document 04/16/24 14:48 [facility] (Rec: 04/16/24 15:29 [facility] [id number]) Manual Assessments Other Manual Assessments Other Manual Assessments redder around R scars, L>R inflmation, no difference in heat PT-OP-G Mobility & Gait Start: 04/16/24 14:47 Freq: Status: Active Protocol: Document 04/16/24 14:48 [facility] (Rec: 04/16/24 15:29 [facility] [id number]) OP Gait Assessment Comments Gait Comments dec LLE stance time, wears heel lift in L shoe per past PT recommenation, slower L knee flex/ext, dec push off, rigid spinal movement PT-OP-J Posture/Palpation/Skin Start: 04/16/24 14:47 Freq: Status: Active Protocol: Document 04/16/24 14:48 [facility] (Rec: 04/16/24 15:29 [facility] [id number]) Posture Evaluation Comments Posture Comments stands on lat aspcect of L foot w/dec big toe contact, shifts wt side to side, slight knee flex L, varus L knee, shifted onto RLE; R iliac crest higher and greater trocanter PT-OP-K Range of Motion Start: 04/16/24 14:47 Freq: Status: Active Protocol: Document 04/16/24 14:48 [facility] (Rec: 04/16/24 15:29 [facility] [id number]) Lumbar Spine Range of Motion Lumbar Spine Active Percentage Flexion 20 Extension 5 Rotation Left 30 Rotation Right 50 Lateral Flexion Left 60 Lateral Flexion Right 60 Knee Goniometric Range of Motion Knee L Flexion Active (degrees) 104 Extension Active (degrees) 14 Ankle and Foot Goniometric Range of Motion Ankle and Foot Right Active Dorsiflexion with Knee Flexed 2 Dorsiflexion with Knee Extended 0 Plantarflexion 55 Left Active Dorsiflexion with Knee Flexed 10 Dorsiflexion with Knee Extended 13 Plantarflexion 52 Comments lacking DF to neutral in both positions PT-OP-L Special Tests Start: 04/16/24 14:47 Freq: Status: Active Protocol: Document 04/16/24 14:48 [facility] (Rec: 04/16/24 15:29 [facility] [id number]) Special Tests Lumbar Spine Special Tests Straight Leg Raise Test Results neg B -able to get to 90 ~ w/ opp knee bent Slump Test Results slump pos R; B positive ext sit PT-OP-M Strength Start: 04/16/24 14:47 Freq: Status: Active Protocol: Document 04/16/24 14:48 [facility] (Rec: 04/16/24 15:29 [facility] [id number]) Hip Strength Hip Manual Muscle Testing Right Flexion (L2) 3+ Fair+ Abduction 4 Good External Rotation 4 Good Internal Rotation 4+ Good+ Left Flexion (L2) 3 Fair Abduction 3 Fair External Rotation 3 Fair Internal Rotation 3+ Fair+ Comments n pain w/ER Knee Strength Knee Manual Muscle Testing Right Flexion (S2) 4+ Good+ Extension (L3) 5 Normal Left Flexion (S2) 3+ Fair+ Extension (L3) 3+ Fair+ Ankle/Foot Strength Ankle and Foot Manual Muscle Testing Right Dorsiflexion (L4) 5 Normal Plantarflexion (S1) 5 Normal Inversion 5 Normal Eversion (S1) 5 Normal Comments PF tested seated Left Dorsiflexion (L4) 3+ Fair+ Plantarflexion (S1) 3+ Fair+ Inversion 4- Good- Eversion (S1) 4- Good- Comments pain PT-OP-Q Treatments Start: 04/16/24 14:47 Freq: Status: Active Protocol: Document 05/10/24 14:30 AB (Rec: 05/10/24 16:23 AB [id number]) Gym Equipment Shuttle Recovery bilateral Details 50# 62# not doretha Reps/Time X15 ( decreased depth) Therapeutic Exercises Supine Exercises Core Supine Exercise Name SL Isometric Side bilateral Resistance isometric Reps/Minutes 20 sec ea and 8 sec each Comments cues for core activation, and breathwork piriformis stretch Supine Exercise Name HEP Side bilateral Equipment Used HEP Reps/Minutes one minute each LE Comments pre MET post manual Mika stretch Supine Exercise Name w/opp knee to chest Side bilateral Reps/Minutes 1 min ea Comments Pre MET post manual with AROM knee flexion Sitting Exercises seated hip abduction with band Side bilateral Resistance Lvl 3 Equipment Used HEP Reps/Minutes one minute Comments one minute for glute med activation. Manual Therapy Treatment Consent Patient gave verbal consent for manual Yes treatment Soft Tissue Mobilization adductor Body Location L Mobilization Type Myofascial Release,Rolling Intensity/Depth Superficial Body Position Hooklying left quad Mobilization Type Myofascial Release,Other Intensity/Depth Moderate Body Position Hooklying Comments in knee flex hips, SI area Body Location bilateral SI, glute/piriformis , hip flexor at groim Mobilization Type Instrument Assisted,Rolling, Sustained Pressure Intensity/Depth Moderate Body Position Sidelying Comments and hooklying Joint Mobilizations left ankle Joint Mulligan with movement TC mob Direction AP Grade III Body Position Standing Reps/Duration X10 X 3 Manual Techniques MET for right AI left PI Type and pubic shotgun Body Location SI Body Position Hooklying Reps/Duration 6X 6 seconds each PT-OP-R Modalities Start: 04/16/24 14:47 Freq: Status: Active Protocol: Document 05/10/24 14:30 AB (Rec: 05/10/24 16:23 AB [id number]) Hot Pack/Cold Pack Treatment left knee Location focus on pes anserine area Patient Position Hooklying PT-OP-T Assessment and Plan Start: 04/16/24 14:47 Freq: Status: Active Protocol: Document 05/10/24 14:30 AB (Rec: 05/10/24 16:23 AB [id number]) Physical Therapy Assessment Goals activity Short Term Goal (STG) Pt will report being able to go up a flight of stairs w/o c /o fatigue or pain greater than 4/10 STG Duration 05/29/24 Client Support Consultant Goal (LTG) Pt will report being able to sit and stand and alternate between the options in order to allow pt to return to working. LTG Duration 07/10/24 strength Short Term Goal (STG) Pt will be indep w/HEP and will be able to start working out at the gym w/PT direction. STG Duration 05/29/24 Care Home Goal (LTG) pt will score at least 4/5 on BLE MMT and at least 3/5 on LPM to show improved stability to allow greater ease w/ activity. LTG Duration 07/10/24 CHRIS Impairment 25/50 Short Term Goal (STG) Pt will improve CHRIS score to at least 19/50 to show improved functional ability. STG Duration 05/29/24 Care Home Goal (LTG) Pt will improve CHRIS score to at least 9/50 to show improved functional ability. LTG Duration 07/10/24 Assessment Summary Assessment Shama rates left hip pain 3/10 knee pain / end of session. Visible increase in body over ankle DF end of Mulligan with movement mobs, but limited DF continues to impact gait pattern as seen by early heel rise with left LE stance descending stair post MWM TC mob. Physical Therapy Plan Frequency and Duration Frequency of Treatment 2x/Week Duration of treatment (weeks) 12 Plan of Care Start Date 04/16/24 Plan of Care End Date 07/10/24 Therapeutic Interventions Therapeutic Interventions Balance Training,Gait Training ,Home Exercise Program,Joint Mobilizations,Manual Therapy, Neuromuscular Re-education, Patient/Caregiver Education, Self-Care/Home Management,Soft Tissue Mobilization,Taping, Therapeutic Activities, Therapeutic Exercises Modalities Cold Pack/Ice Massage,Electric Stimulation,Hot Packs, Infrared Therapy,Ultrasound Next Visit Focus/Plan Next Note Type Treatment Note Next Visit Plan balance exercises, careful re: hx of compression fx L1, 2; work on pelvis relalignment, gentle STM to back and LLE to improve mobility and ROM, ankle and knee jt mobs to improve mobility. careful w/exercises to avoid discomfort in painful areas as this gives her delayed flare up. Try bike options, leg press edu, review leg machines for gym training
--- NOTE | 2024-05-14 16:18 | PT.OTN ---
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 [id number]) Current Condition History of Current Condition Onset Date August 2022 Current Complaints LBP and leg pain History of Current Condition Pt had accident in August 2022 and fell of 8 ft ladder holding chainsaw. Dislocated L knee and had 2 different surgery (external fixation then internal fixation), lumbar spine compression fx ( L1 and 2) and has degneration of L4 and 5 w/compression of n root R>L L4&5. Did PT for several months and started seeing a pain management doctor and had horrible L ankle n pain and had injection that helped. 2nd injections in back helped w/n pain in thigh. DId PT from Jan 2023 ( [facility] until that point) October 2023. Finished d/t move to [place]. pain management doctor wanted her to continue. took a while to get into primary w/move. Feels like nerve pain is getting significantly worse and is able to do less. hx of fx of tibia w/screws (L) about 10 years ago d/t horse falling onto her and those screws had to be take out. Has appt w/pain management Jun 10 . 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 was up to 2500 steps in October in a day. Now it is harder to get to that amt d/t pain. LLE started to swell again and wearing compression socks during the day. Will be exhausted easily like going up a flight of stairs. Treatment Goals Patient/Caregiver Goals strength as much as can, try to avoid surgery, get gym program PT-OP-C Subjective Start: 04/16/24 14:47 Freq: Status: Active Protocol: Document 05/14/24 12:57 AB (Rec: 05/14/24 16:18 AB [id number]) OP-PT Subjective Patient Comments Patient Comments Patient reports she twisted and reached in sitting a few days ago with increased back pain. Patient reports knees feeling better less pain, just stiffness. AP PI WNL PT-OP-D Balance Start: 04/16/24 14:47 Freq: Status: Active Protocol: Document 04/16/24 14:48 [facility] (Rec: 04/16/24 15:29 [facility] [id number]) Balance Tests Single Limb Standing Single Limb- Right 14 sec w/opp hip drop-back pain Single Limb- Left 6 sec w/opp hip drop PT-OP-F Manual Assessment Start: 04/16/24 14:47 Freq: Status: Active Protocol: Document 04/16/24 14:48 [facility] (Rec: 04/16/24 15:29 [facility] [id number]) Manual Assessments Other Manual Assessments Other Manual Assessments redder around R scars, L>R inflmation, no difference in heat PT-OP-G Mobility & Gait Start: 04/16/24 14:47 Freq: Status: Active Protocol: Document 04/16/24 14:48 [facility] (Rec: 04/16/24 15:29 [facility] [id number]) OP Gait Assessment Comments Gait Comments dec LLE stance time, wears heel lift in L shoe per past PT recommenation, slower L knee flex/ext, dec push off, rigid spinal movement PT-OP-J Posture/Palpation/Skin Start: 04/16/24 14:47 Freq: Status: Active Protocol: Document 04/16/24 14:48 [facility] (Rec: 04/16/24 15:29 [facility] [id number]) Posture Evaluation Comments Posture Comments stands on lat aspcect of L foot w/dec big toe contact, shifts wt side to side, slight knee flex L, varus L knee, shifted onto RLE; R iliac crest higher and greater trocanter PT-OP-K Range of Motion Start: 04/16/24 14:47 Freq: Status: Active Protocol: Document 04/16/24 14:48 [facility] (Rec: 04/16/24 15:29 [facility] [id number]) Lumbar Spine Range of Motion Lumbar Spine Active Percentage Flexion 20 Extension 5 Rotation Left 30 Rotation Right 50 Lateral Flexion Left 60 Lateral Flexion Right 60 Knee Goniometric Range of Motion Knee L Flexion Active (degrees) 104 Extension Active (degrees) 14 Ankle and Foot Goniometric Range of Motion Ankle and Foot Right Active Dorsiflexion with Knee Flexed 2 Dorsiflexion with Knee Extended 0 Plantarflexion 55 Left Active Dorsiflexion with Knee Flexed 10 Dorsiflexion with Knee Extended 13 Plantarflexion 52 Comments lacking DF to neutral in both positions PT-OP-L Special Tests Start: 04/16/24 14:47 Freq: Status: Active Protocol: Document 04/16/24 14:48 [facility] (Rec: 04/16/24 15:29 [facility] [id number]) Special Tests Lumbar Spine Special Tests Straight Leg Raise Test Results neg B -able to get to 90 ~ w/ opp knee bent Slump Test Results slump pos R; B positive ext sit PT-OP-M Strength Start: 04/16/24 14:47 Freq: Status: Active Protocol: Document 04/16/24 14:48 [facility] (Rec: 04/16/24 15:29 [facility] [id number]) Hip Strength Hip Manual Muscle Testing Right Flexion (L2) 3+ Fair+ Abduction 4 Good External Rotation 4 Good Internal Rotation 4+ Good+ Left Flexion (L2) 3 Fair Abduction 3 Fair External Rotation 3 Fair Internal Rotation 3+ Fair+ Comments n pain w/ER Knee Strength Knee Manual Muscle Testing Right Flexion (S2) 4+ Good+ Extension (L3) 5 Normal Left Flexion (S2) 3+ Fair+ Extension (L3) 3+ Fair+ Ankle/Foot Strength Ankle and Foot Manual Muscle Testing Right Dorsiflexion (L4) 5 Normal Plantarflexion (S1) 5 Normal Inversion 5 Normal Eversion (S1) 5 Normal Comments PF tested seated Left Dorsiflexion (L4) 3+ Fair+ Plantarflexion (S1) 3+ Fair+ Inversion 4- Good- Eversion (S1) 4- Good- Comments pain PT-OP-Q Treatments Start: 04/16/24 14:47 Freq: Status: Active Protocol: Document 05/14/24 12:57 AB (Rec: 05/14/24 16:18 AB [id number]) Gym Equipment Shuttle Recovery unilateral Details left LE ( lacking 3 deg fully extended.) Resistance 25# Reps/Time X15 bilateral Details 50# Reps/Time X15 Shuttle Balance red Details normal DAYANNA and stagger Reps/Duration 4 min Comments CGA with visual scanning and head turns. Therapeutic Exercises Supine Exercises hamstring stretch Side left Reps/Minutes 60 sec X 1 Comments verbal cues, post manual Sitting Exercises seated hip abduction with band Side bilateral Resistance Lvl 3 Equipment Used HEP Reps/Minutes one minute Comments one minute for glute med activation. Standing Exercises bottoms up Reps/Minutes X3 Comments verbal and visual cues Manual Therapy Treatment Consent Patient gave verbal consent for manual Yes treatment Soft Tissue Mobilization left quad Body Location quad and hamstring Mobilization Type Cross-Friction,Myofascial Release,Rolling Intensity/Depth Moderate Joint Mobilizations left knee Joint tibial on femur Direction PA Grade IV Body Position Hooklying Reps/Duration X10 X 4 Neuro Re-Education Treatment Balance Activities SLS Details CGA on and off foam Reps/Duration 2min tandem stepping Reps/Duration 10 ft fwd and retro X 3 each Comments CGA hands above bar PT-OP-R Modalities Start: 04/16/24 14:47 Freq: Status: Active Protocol: Document 05/10/24 14:30 AB (Rec: 05/10/24 16:23 AB [id number]) Hot Pack/Cold Pack Treatment left knee Location focus on pes anserine area Patient Position Hooklying PT-OP-T Assessment and Plan Start: 04/16/24 14:47 Freq: Status: Active Protocol: Document 05/14/24 12:57 AB (Rec: 05/14/24 16:18 AB [id number]) Physical Therapy Assessment Goals activity Short Term Goal (STG) Pt will report being able to go up a flight of stairs w/o c /o fatigue or pain greater than 4/10 STG Duration 05/29/24 Cable Puller Goal (LTG) Pt will report being able to sit and stand and alternate between the options in order to allow pt to return to working. LTG Duration 07/10/24 strength Short Term Goal (STG) Pt will be indep w/HEP and will be able to start working out at the gym w/PT direction. STG Duration 05/29/24 Cable Puller Goal (LTG) pt will score at least 4/5 on BLE MMT and at least 3/5 on LPM to show improved stability to allow greater ease w/ activity. LTG Duration 07/10/24 CHRIS Impairment 25/50 Short Term Goal (STG) Pt will improve CHRIS score to at least 19/50 to show improved functional ability. STG Duration 05/29/24 Half-Way Goal (LTG) Pt will improve CHRIS score to at least 9/50 to show improved functional ability. LTG Duration 07/10/24 Assessment Summary Assessment Shama reports she feels better end of session, gesturing to left LE. Left knee extension continues to be limited impacting gait pattern. Physical Therapy Plan Frequency and Duration Frequency of Treatment 2x/Week Duration of treatment (weeks) 12 Plan of Care Start Date 04/16/24 Plan of Care End Date 07/10/24 Next Visit Focus/Plan Next Note Type Treatment Note Next Visit Plan balance exercises, careful re: hx of compression fx L1, 2; work on pelvis relalignment, gentle STM to back and LLE to improve mobility and ROM, ankle and knee jt mobs to improve mobility. careful w/exercises to avoid discomfort in painful areas as this gives her delayed flare up. Try bike options, leg press edu, review leg machines for gym training
--- NOTE | 2024-05-16 16:17 | PT.OTN ---
Current Diagnoses Other chronic pain (05/16/24) Low back pain, unspecified (05/16/24) Physical Therapy Treatment Note PT-OP-A Visit Information Start: 04/16/24 14:47 Freq: Status: Active Protocol: Document 05/16/24 14:26 [facility] (Rec: 05/16/24 16:17 [facility] [id number]) Out-Patient Physical Therapy Visit Information Visit Information Visit Type Progress Note Visit Start Time 14:30 Visit Stop Time 15:15 Visit Number 10 (06/07 2024) Number of FOREIGN CORRESPONDENT Visits 0 PT-OP-B Current Condition Start: 04/16/24 14:47 Freq: Status: Active Protocol: Document 04/16/24 14:48 [facility] (Rec: 04/16/24 15:29 [facility] [id number]) Current Condition History of Current Condition Onset Date August 2022 Current Complaints LBP and leg pain History of Current Condition Pt had accident in August 2022 and fell of 8 ft ladder holding chainsaw. Dislocated L knee and had 2 different surgery (external fixation then internal fixation), lumbar spine compression fx ( L1 and 2) and has degneration of L4 and 5 w/compression of n root R>L L4&5. Did PT for several months and started seeing a pain management doctor and had horrible L ankle n pain and had injection that helped. 2nd injections in back helped w/n pain in thigh. DId PT from Jan 2023 ( [facility] until that point) October 2023. Finished d/t move to [place]. pain management doctor wanted her to continue. took a while to get into primary w/move. Feels like nerve pain is getting significantly worse and is able to do less. hx of fx of tibia w/screws (L) about 10 years ago d/t horse falling onto her and those screws had to be take out. Has appt w/pain management Jun 10 . 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 was up to 2500 steps in October in a day. Now it is harder to get to that amt d/t pain. LLE started to swell again and wearing compression socks during the day. Will be exhausted easily like going up a flight of stairs. Treatment Goals Patient/Caregiver Goals strength as much as can, try to avoid surgery, get gym program PT-OP-C Subjective Start: 04/16/24 14:47 Freq: Status: Active Protocol: Document 05/16/24 14:26 [facility] (Rec: 05/16/24 15:22 [facility] [id number]) OP-PT Subjective Patient Comments Patient Comments pt reports mm soreness after last session PT-OP-D Balance Start: 04/16/24 14:47 Freq: Status: Active Protocol: Document 04/16/24 14:48 [facility] (Rec: 04/16/24 15:29 [facility] [id number]) Balance Tests Single Limb Standing Single Limb- Right 14 sec w/opp hip drop-back pain Single Limb- Left 6 sec w/opp hip drop PT-OP-F Manual Assessment Start: 04/16/24 14:47 Freq: Status: Active Protocol: Document 04/16/24 14:48 [facility] (Rec: 04/16/24 15:29 [id number] Manual Assessments Other Manual Assessments Other Manual Assessments redder around R scars, L>R inflmation, no difference in heat PT-OP-G Mobility & Gait Start: 04/16/24 14:47 Freq: Status: Active Protocol: Document 04/16/24 14:48 [facility] (Rec: 04/16/24 15:29 [facility] [id number]) OP Gait Assessment Comments Gait Comments dec LLE stance time, wears heel lift in L shoe per past PT recommenation, slower L knee flex/ext, dec push off, rigid spinal movement PT-OP-J Posture/Palpation/Skin Start: 04/16/24 14:47 Freq: Status: Active Protocol: Document 05/16/24 14:26 [facility] (Rec: 05/16/24 15:22 [facility] [id number]) Posture Evaluation [facility] Postural Classification System Lumbar Protective Mechanism Left AP 0 Lumbar Protective Mechanism Right AP 0 Lumbar Protective Mechanism Left PA 2 Lumbar Protective Mechanism Right PA 2 PT-OP-K Range of Motion Start: 04/16/24 14:47 Freq: Status: Active Protocol: Document 04/16/24 14:48 [facility] (Rec: 04/16/24 15:29 [facility] [id number]) Lumbar Spine Range of Motion Lumbar Spine Active Percentage Flexion 20 Extension 5 Rotation Left 30 Rotation Right 50 Lateral Flexion Left 60 Lateral Flexion Right 60 Knee Goniometric Range of Motion Knee L Flexion Active (degrees) 104 Extension Active (degrees) 14 Ankle and Foot Goniometric Range of Motion Ankle and Foot Right Active Dorsiflexion with Knee Flexed 2 Dorsiflexion with Knee Extended 0 Plantarflexion 55 Left Active Dorsiflexion with Knee Flexed 10 Dorsiflexion with Knee Extended 13 Plantarflexion 52 Comments lacking DF to neutral in both positions PT-OP-L Special Tests Start: 04/16/24 14:47 Freq: Status: Active Protocol: Document 04/16/24 14:48 [facility] (Rec: 04/16/24 15:29 [facility] [id number]) Special Tests Lumbar Spine Special Tests Straight Leg Raise Test Results neg B -able to get to 90 ~ w/ opp knee bent Slump Test Results slump pos R; B positive ext sit PT-OP-M Strength Start: 04/16/24 14:47 Freq: Status: Active Protocol: Document 05/16/24 14:26 [facility] (Rec: 05/16/24 15:22 [facility] [id number]) Hip Strength Hip Manual Muscle Testing Right Flexion (L2) 4 Good Abduction 4- Good- External Rotation 4+ Good+ Internal Rotation 4+ Good+ Left Flexion (L2) 3+ Fair+ Abduction 3+ Fair+ External Rotation 3+ Fair+ Internal Rotation 4- Good- Knee Strength Knee Manual Muscle Testing Right Flexion (S2) 5 Normal Extension (L3) 5 Normal Left Flexion (S2) 4 Good Extension (L3) 4- Good- Ankle/Foot Strength Ankle and Foot Manual Muscle Testing Right Dorsiflexion (L4) 5 Normal Plantarflexion (S1) 5 Normal Inversion 5 Normal Eversion (S1) 5 Normal Comments PF tested seated Left Dorsiflexion (L4) 4+ Good+ Plantarflexion (S1) 4+ Good+ Inversion 4 Good Eversion (S1) 4+ Good+ Comments pain PT-OP-Q Treatments Start: 04/16/24 14:47 Freq: Status: Active Protocol: Document 05/16/24 14:26 [facility] (Rec: 05/16/24 15:22 [facility] [id number]) Therapeutic Exercises Other Exercises isometrics Other Exercise Name BLE MMT and LPM Side bilateral Gait Training Gait Activity wt acceptance Comments into LLE w/facilitation to LLE seated w/traction. stairs Comments 1. up/down 13 6 in stairs w/ rail 2. up/down 4 in step LLE x10 w /cues for wt shift to acceptance 3. up/down 6 in step LLE x10 w /cues for wt shift to acceptance 4. recip up/down staisr 6 in training stairs x4 w/rail w/ cues for wt acceptance facing mirror Comments 1. wt shifts to LLE x15 2. wt shifts to RLE x8 3. wt shifts to LLE w/counter in front x15 Manual Therapy Treatment Consent Patient gave verbal consent for manual Yes treatment Soft Tissue Mobilization left quad Body Location LLE quad, HS, add, ITB circumfrential Mobilization Type Myofascial Release Intensity/Depth Superficial Body Position Hooklying Comments w/active HS stretch Taping KT Comments I strip under patella and to sides of patella PT-OP-R Modalities Start: 04/16/24 14:47 Freq: Status: Active Protocol: Document 05/10/24 14:30 [facility] (Rec: 05/10/24 16:23 [facility] [id number]) Hot Pack/Cold Pack Treatment left knee Location focus on pes anserine area Patient Position Hooklying PT-OP-T Assessment and Plan Start: 04/16/24 14:47 Freq: Status: Active Protocol: Document 05/16/24 14:26 [facility] (Rec: 05/16/24 15:22 [facility] [id number]) Physical Therapy Assessment Goals activity Short Term Goal (STG) Pt will report being able to go up a flight of stairs w/o c /o fatigue or pain greater than 4/10 1/2-still difficulty w/up. down ok STG Duration 05/29/24 Reduction Furnace Operator Goal (LTG) Pt will report being able to sit and stand and alternate between the options in order to allow pt to return to working. LTG Duration 07/10/24 strength Short Term Goal (STG) Pt will be indep w/HEP and will be able to start working out at the gym w/PT direction. 12-indep w/HEP, working on gym program options STG Duration 05/29/24 Half-Way Goal (LTG) pt will score at least 4/5 on BLE MMT and at least 3/5 on LPM to show improved stability to allow greater ease w/ activity. 1/2-improving LTG Duration 07/10/24 CHRIS Impairment 25/50 Short Term Goal (STG) Pt will improve CHRIS score to at least 19/50 to show improved functional ability. 05/16- STG Duration 05/29/24 Half-Way Goal (LTG) Pt will improve CHRIS score to at least 9/50 to show improved functional ability. LTG Duration 07/10/24 Assessment Summary Assessment Pt is improving w/function and gait overall and demonstrates overall improved strength w/ cont weakness of hip abd, core and quads most significantly. she improves w/stair ambulation and gait w/training , but has difficulty w/full LLE wt acceptance. cont PT for strength, gait and mobility. Physical Therapy Plan Frequency and Duration Frequency of Treatment 2x/Week Duration of treatment (weeks) 12 Plan of Care Start Date 04/16/24 Plan of Care End Date 07/10/24 Therapeutic Interventions Therapeutic Interventions Balance Training,Gait Training ,Home Exercise Program,Joint Mobilizations,Manual Therapy, Neuromuscular Re-education, Patient/Caregiver Education, Self-Care/Home Management,Soft Tissue Mobilization,Taping, Therapeutic Activities, Therapeutic Exercises Modalities Cold Pack/Ice Massage,Electric Stimulation,Hot Packs, Infrared Therapy,Ultrasound Next Visit Focus/Plan Next Note Type Treatment Note Next Visit Plan balance exercises, stair and gait training work on circumfrential MFR to LLE careful re: hx of compression fx L1, 2; work on pelvis relalignment, gentle STM to back and LLE to improve mobility and ROM, ankle and knee jt mobs to improve mobility. careful w/exercises to avoid discomfort in painful areas as this gives her delayed flare up.
--- NOTE | 2024-05-20 16:13 | PT.OTN ---
Current Diagnoses Other chronic pain (05/20/24) Low back pain, unspecified (05/20/24) Physical Therapy Treatment Note PT-OP-A Visit Information Start: 04/16/24 14:47 Freq: Status: Active Protocol: Document 05/20/24 12:53 [facility] (Rec: 05/20/24 16:12 [facility] [id number]) Out-Patient Physical Therapy Visit Information Visit Information Visit Type Treatment Note Visit Start Time 15:20 Visit Stop Time 16:06 Visit Number 11 Number of POURER METAL Visits 1 PT-OP-B Current Condition Start: 04/16/24 14:47 Freq: Status: Active Protocol: Document 04/16/24 14:48 [facility] (Rec: 04/16/24 15:29 [facility] [id number]) Current Condition History of Current Condition Onset Date August 2022 Current Complaints LBP and leg pain History of Current Condition Pt had accident in August 2022 and fell of 8 ft ladder holding chainsaw. Dislocated L knee and had 2 different surgery (external fixation then internal fixation), lumbar spine compression fx ( L1 and 2) and has degneration of L4 and 5 w/compression of n root R>L L4&5. Did PT for several months and started seeing a pain management doctor and had horrible L ankle n pain and had injection that helped. 2nd injections in back helped w/n pain in thigh. DId PT from Jan 2023 ( [facility] until that point) October 2023. Finished d/t move to [place]. pain management doctor wanted her to continue. took a while to get into primary w/move. Feels like nerve pain is getting significantly worse and is able to do less. hx of fx of tibia w/screws (L) about 10 years ago d/t horse falling onto her and those screws had to be take out. Has appt w/pain management Jun 10 . 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 was up to 2500 steps in October in a day. Now it is harder to get to that amt d/t pain. LLE started to swell again and wearing compression socks during the day. Will be exhausted easily like going up a flight of stairs. Treatment Goals Patient/Caregiver Goals strength as much as can, try to avoid surgery, get gym program PT-OP-C Subjective Start: 04/16/24 14:47 Freq: Status: Active Protocol: Document 05/20/24 12:53 [facility] (Rec: 05/20/24 16:12 [facility] [id number]) OP-PT Subjective Patient Comments Patient Comments Shama reports she was good post previous session, But today Patient rates left groin pain 4/10, hamstring with increased tightness, reports pain if she stresses the area. PT-OP-D Balance Start: 04/16/24 14:47 Freq: Status: Active Protocol: Document 04/16/24 14:48 [facility] (Rec: 04/16/24 15:29 [facility] [id number]) Balance Tests Single Limb Standing Single Limb- Right 14 sec w/opp hip drop-back pain Single Limb- Left 6 sec w/opp hip drop PT-OP-F Manual Assessment Start: 04/16/24 14:47 Freq: Status: Active Protocol: Document 04/16/24 14:48 [facility] (Rec: 04/16/24 15:29 [facility] [id number]) Manual Assessments Other Manual Assessments Other Manual Assessments redder around R scars, L>R inflmation, no difference in heat PT-OP-G Mobility & Gait Start: 04/16/24 14:47 Freq: Status: Active Protocol: Document 04/16/24 14:48 [facility] (Rec: 04/16/24 15:29 [facility] [id number]) OP Gait Assessment Comments Gait Comments dec LLE stance time, wears heel lift in L shoe per past PT recommenation, slower L knee flex/ext, dec push off, rigid spinal movement PT-OP-J Posture/Palpation/Skin Start: 04/16/24 14:47 Freq: Status: Active Protocol: Document 05/16/24 14:26 [facility] (Rec: 05/16/24 15:22 [facility] [id number]) Posture Evaluation [facility] Postural Classification System Lumbar Protective Mechanism Left AP 0 Lumbar Protective Mechanism Right AP 0 Lumbar Protective Mechanism Left PA 2 Lumbar Protective Mechanism Right PA 2 PT-OP-K Range of Motion Start: 04/16/24 14:47 Freq: Status: Active Protocol: Document 04/16/24 14:48 [facility] (Rec: 04/16/24 15:29 [facility] [id number]) Lumbar Spine Range of Motion Lumbar Spine Active Percentage Flexion 20 Extension 5 Rotation Left 30 Rotation Right 50 Lateral Flexion Left 60 Lateral Flexion Right 60 Knee Goniometric Range of Motion Knee L Flexion Active (degrees) 104 Extension Active (degrees) 14 Ankle and Foot Goniometric Range of Motion Ankle and Foot Right Active Dorsiflexion with Knee Flexed 2 Dorsiflexion with Knee Extended 0 Plantarflexion 55 Left Active Dorsiflexion with Knee Flexed 10 Dorsiflexion with Knee Extended 13 Plantarflexion 52 Comments lacking DF to neutral in both positions PT-OP-L Special Tests Start: 04/16/24 14:47 Freq: Status: Active Protocol: Document 04/16/24 14:48 [facility] (Rec: 04/16/24 15:29 [facility] [id number]) Special Tests Lumbar Spine Special Tests Straight Leg Raise Test Results neg B -able to get to 90 ~ w/ opp knee bent Slump Test Results slump pos R; B positive ext sit PT-OP-M Strength Start: 04/16/24 14:47 Freq: Status: Active Protocol: Document 05/16/24 14:26 [facility] (Rec: 05/16/24 15:22 [facility] [id number]) Hip Strength Hip Manual Muscle Testing Right Flexion (L2) 4 Good Abduction 4- Good- External Rotation 4+ Good+ Internal Rotation 4+ Good+ Left Flexion (L2) 3+ Fair+ Abduction 3+ Fair+ External Rotation 3+ Fair+ Internal Rotation 4- Good- Knee Strength Knee Manual Muscle Testing Right Flexion (S2) 5 Normal Extension (L3) 5 Normal Left Flexion (S2) 4 Good Extension (L3) 4- Good- Ankle/Foot Strength Ankle and Foot Manual Muscle Testing Right Dorsiflexion (L4) 5 Normal Plantarflexion (S1) 5 Normal Inversion 5 Normal Eversion (S1) 5 Normal Comments PF tested seated Left Dorsiflexion (L4) 4+ Good+ Plantarflexion (S1) 4+ Good+ Inversion 4 Good Eversion (S1) 4+ Good+ Comments pain PT-OP-Q Treatments Start: 04/16/24 14:47 Freq: Status: Active Protocol: Document 05/20/24 12:53 [facility] (Rec: 05/20/24 16:12 [facility] [id number]) Therapeutic Exercises Supine Exercises Mika stretch Supine Exercise Name w/opp knee to chest Side bilateral Reps/Minutes 1 min ea Comments Pre MET post manual with AROM knee flexion Sitting Exercises seated hip abduction with band Side bilateral Resistance Lvl 3 Equipment Used HEP Reps/Minutes one minute Comments one minute for glute med activation. Standing Exercises bottoms up Standing Exercise Name hands on mat at varying wights Reps/Minutes X5 X 3 Comments verbal and visual cues calf stretches Standing Exercise Name gastroc and soleus Side bilateral Reps/Minutes 60 sec each Comments verbal cues, post MWM TC mob Other Exercises STS Other Exercise Name STS w/ band To HEP Resistance level 3 band Reps/Minutes X2 at lowest seat height X8 seat raised Comments Verbal and vis cues for hip hinge monitored for pain Gait Training Gait Activity ambulation without device Distance/Duration 14 feet X 2 Treatment Focus Verbal cues for left knee extended on heel strike Comments Patient ed also to stand with left knee as straight as right when standing Manual Therapy Treatment Soft Tissue Mobilization left quad Body Location LLE quad, HS, add, ITB circumfrential Mobilization Type Myofascial Release Intensity/Depth Superficial Body Position Hooklying Comments also sidelying hips, SI area Body Location bilateral SI, glute/piriformis , hip flexor at groin Mobilization Type Cross-Friction,Rolling, Sustained Pressure Intensity/Depth Moderate Body Position Sidelying Comments and hooklying Joint Mobilizations hip Direction inf Grade IV Reps/Duration 4X10 left ankle Joint Mulligan with movement TC mob Direction AP Grade III Body Position Standing Reps/Duration X10 X 3 Manual Techniques MET for right AI left PI Type and pubic shotgun Body Location SI Body Position Hooklying Reps/Duration 6X 6 seconds each PT-OP-R Modalities Start: 04/16/24 14:47 Freq: Status: Active Protocol: Document 05/10/24 14:30 [facility] (Rec: 05/10/24 16:23 [facility] [id number]) Hot Pack/Cold Pack Treatment left knee Location focus on pes anserine area Patient Position Hooklying PT-OP-T Assessment and Plan Start: 04/16/24 14:47 Freq: Status: Active Protocol: Document 05/20/24 12:53 [facility] (Rec: 05/20/24 16:12 [facility] [id number]) Physical Therapy Assessment Assessment Summary Assessment Patient reports 2/10 ant ankle ambulating without device. Decreased control end ROM stand to sit with mat at lowest height. Physical Therapy Plan Frequency and Duration Frequency of Treatment 2x/Week Duration of treatment (weeks) 12 Plan of Care Start Date 04/16/24 Plan of Care End Date 07/10/24 Next Visit Focus/Plan Next Note Type Treatment Note Next Visit Plan balance exercises, stair and gait training work on circumfrential MFR to LLE careful re: hx of compression fx L1, 2; work on pelvis relalignment, gentle STM to back and LLE to improve mobility and ROM, ankle and knee jt mobs to improve mobility. careful w/exercises to avoid discomfort in painful areas as this gives her delayed flare up.
--- NOTE | 2024-05-22 16:32 | PT.OTN ---
Current Diagnoses Other chronic pain (05/22/24) Low back pain, unspecified (05/22/24) Physical Therapy Treatment Note PT-OP-A Visit Information Start: 04/16/24 14:47 Freq: Status: Active Protocol: Document 05/22/24 13:51 AB (Rec: 05/22/24 16:31 AB [id number]) Out-Patient Physical Therapy Visit Information Visit Information Visit Type Treatment Note Visit Start Time 15:19 Visit Stop Time 16:03 Visit Number 12 Number of BI MANAGER Visits 2 PT-OP-B Current Condition Start: 04/16/24 14:47 Freq: Status: Active Protocol: Document 04/16/24 14:48 LR (Rec: 04/16/24 15:29 [facility] [id number]) Current Condition History of Current Condition Onset Date August 2022 Current Complaints LBP and leg pain History of Current Condition Pt had accident in August 2022 and fell of 8 ft ladder holding chainsaw. Dislocated L knee and had 2 different surgery (external fixation then internal fixation), lumbar spine compression fx ( L1 and 2) and has degneration of L4 and 5 w/compression of n root R>L L4&5. Did PT for several months and started seeing a pain management doctor and had horrible L ankle n pain and had injection that helped. 2nd injections in back helped w/n pain in thigh. DId PT from Jan 2023 ( [facility] until that point) October 2023. Finished d/t move to [place]. pain management doctor wanted her to continue. took a while to get into primary w/move. Feels like nerve pain is getting significantly worse and is able to do less. hx of fx of tibia w/screws (L) about 10 years ago d/t horse falling onto her and those screws had to be take out. Has appt w/pain management Jun 10 . 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 was up to 2500 steps in October in a day. Now it is harder to get to that amt d/t pain. LLE started to swell again and wearing compression socks during the day. Will be exhausted easily like going up a flight of stairs. Treatment Goals Patient/Caregiver Goals strength as much as can, try to avoid surgery, get gym program PT-OP-C Subjective Start: 04/16/24 14:47 Freq: Status: Active Protocol: Document 05/22/24 13:51 AB (Rec: 05/22/24 16:31 AB [id number]) OP-PT Subjective Patient Comments Patient Comments Patient reports she was sore post previous session, right resolved the next day, left is still sore,but better with yesterday. Shama rates pain 3/ 10 left knee 4/10 post and lateral left hip. PT-OP-D Balance Start: 04/16/24 14:47 Freq: Status: Active Protocol: Document 04/16/24 14:48 [facility] (Rec: 04/16/24 15:29 [facility] [id number]) Balance Tests Single Limb Standing Single Limb- Right 14 sec w/opp hip drop-back pain Single Limb- Left 6 sec w/opp hip drop PT-OP-F Manual Assessment Start: 04/16/24 14:47 Freq: Status: Active Protocol: Document 04/16/24 14:48 [facility] (Rec: 04/16/24 15:29 [facility] [id number]) Manual Assessments Other Manual Assessments Other Manual Assessments redder around R scars, L>R inflmation, no difference in heat PT-OP-G Mobility & Gait Start: 04/16/24 14:47 Freq: Status: Active Protocol: Document 04/16/24 14:48 [facility] (Rec: 04/16/24 15:29 [facility] [id number]) OP Gait Assessment Comments Gait Comments dec LLE stance time, wears heel lift in L shoe per past PT recommenation, slower L knee flex/ext, dec push off, rigid spinal movement PT-OP-J Posture/Palpation/Skin Start: 04/16/24 14:47 Freq: Status: Active Protocol: Document 05/16/24 14:26 [facility] (Rec: 05/16/24 15:22 [facility] [id number]) Posture Evaluation [facility] Postural Classification System Lumbar Protective Mechanism Left AP 0 Lumbar Protective Mechanism Right AP 0 Lumbar Protective Mechanism Left PA 2 Lumbar Protective Mechanism Right PA 2 PT-OP-K Range of Motion Start: 04/16/24 14:47 Freq: Status: Active Protocol: Document 04/16/24 14:48 [facility] (Rec: 04/16/24 15:29 [facility] [id number]) Lumbar Spine Range of Motion Lumbar Spine Active Percentage Flexion 20 Extension 5 Rotation Left 30 Rotation Right 50 Lateral Flexion Left 60 Lateral Flexion Right 60 Knee Goniometric Range of Motion Knee L Flexion Active (degrees) 104 Extension Active (degrees) 14 Ankle and Foot Goniometric Range of Motion Ankle and Foot Right Active Dorsiflexion with Knee Flexed 2 Dorsiflexion with Knee Extended 0 Plantarflexion 55 Left Active Dorsiflexion with Knee Flexed 10 Dorsiflexion with Knee Extended 13 Plantarflexion 52 Comments lacking DF to neutral in both positions PT-OP-L Special Tests Start: 04/16/24 14:47 Freq: Status: Active Protocol: Document 04/16/24 14:48 [facility] (Rec: 04/16/24 15:29 [facility] [id number]) Special Tests Lumbar Spine Special Tests Straight Leg Raise Test Results neg B -able to get to 90 ~ w/ opp knee bent Slump Test Results slump pos R; B positive ext sit PT-OP-M Strength Start: 04/16/24 14:47 Freq: Status: Active Protocol: Document 05/16/24 14:26 [facility] (Rec: 05/16/24 15:22 [facility] [id number]) Hip Strength Hip Manual Muscle Testing Right Flexion (L2) 4 Good Abduction 4- Good- External Rotation 4+ Good+ Internal Rotation 4+ Good+ Left Flexion (L2) 3+ Fair+ Abduction 3+ Fair+ External Rotation 3+ Fair+ Internal Rotation 4- Good- Knee Strength Knee Manual Muscle Testing Right Flexion (S2) 5 Normal Extension (L3) 5 Normal Left Flexion (S2) 4 Good Extension (L3) 4- Good- Ankle/Foot Strength Ankle and Foot Manual Muscle Testing Right Dorsiflexion (L4) 5 Normal Plantarflexion (S1) 5 Normal Inversion 5 Normal Eversion (S1) 5 Normal Comments PF tested seated Left Dorsiflexion (L4) 4+ Good+ Plantarflexion (S1) 4+ Good+ Inversion 4 Good Eversion (S1) 4+ Good+ Comments pain PT-OP-Q Treatments Start: 04/16/24 14:47 Freq: Status: Active Protocol: Document 05/22/24 13:51 AB (Rec: 05/22/24 16:31 AB [id number]) Therapeutic Exercises Standing Exercises Heel raises Standing Exercise Name on stairs HEP Side bilateral Reps/Minutes X10 with knees bent X 10 knees staraight calf stretches Standing Exercise Name gastroc and soleus Side bilateral Resistance LEILANI Reps/Minutes 60 sec each X2 Comments post MW Other Exercises ambulation with weight overhead Other Exercise Name HEP Side bilateral Resistance 2 lb Reps/Minutes 1 min post 12 feet in mirror isometrics Other Exercise Name glute med isometric HEP Side bilateral Reps/Minutes one minute each LE Comments verbal and visual cues STS Other Exercise Name STS w/ band To HEP Resistance level 3 band Reps/Minutes raised seat height X 10 Comments Verbal and vis cues for hip hinge monitored for pain Manual Therapy Treatment Soft Tissue Mobilization myofascial left LE Body Location ant tib, quad, SI Mobilization Type Myofascial Release,Other Intensity/Depth Superficial Body Position Hooklying Comments and sidelying Moderate and to SI area using dicem Taping KT Comments I strip under patella and to sides of patella also to I strips to unload fat pad L knee PT-OP-R Modalities Start: 04/16/24 14:47 Freq: Status: Active Protocol: Document 05/10/24 14:30 AB (Rec: 05/10/24 16:23 AB [id number]) Hot Pack/Cold Pack Treatment left knee Location focus on pes anserine area Patient Position Hooklying PT-OP-T Assessment and Plan Start: 04/16/24 14:47 Freq: Status: Active Protocol: Document 05/22/24 13:51 AB (Rec: 05/22/24 16:31 AB [id number]) Physical Therapy Assessment Goals activity Short Term Goal (STG) Pt will report being able to go up a flight of stairs w/o c /o fatigue or pain greater than 4/10 1/2-still difficulty w/up. down ok STG Duration 05/29/24 Injection Mold Technician Goal (LTG) Pt will report being able to sit and stand and alternate between the options in order to allow pt to return to working. LTG Duration 07/10/24 strength Short Term Goal (STG) Pt will be indep w/HEP and will be able to start working out at the gym w/PT direction. 1/2-indep w/HEP, working on gym program options STG Duration 05/29/24 Injection Mold Technician Goal (LTG) pt will score at least 4/5 on BLE MMT and at least 3/5 on LPM to show improved stability to allow greater ease w/ activity. 1/2-improving LTG Duration 07/10/24 CHRIS Impairment Short Term Goal (STG) Pt will improve CHRIS score to at least 19/50 to show improved functional ability. 05/16- STG Duration 05/29/24 Injection Mold Technician Goal (LTG) Pt will improve CHRIS score to at least 9/50 to show improved functional ability. LTG Duration 07/10/24 Assessment Summary Assessment Patient reports SI pain 210 with ambulation without device end of session. Physical Therapy Plan Frequency and Duration Frequency of Treatment 2x/Week Duration of treatment (weeks) 12 Plan of Care Start Date 04/16/24 Plan of Care End Date 07/10/24 Next Visit Focus/Plan Next Note Type Treatment Note Next Visit Plan balance exercises, stair and gait training work on circumfrential MFR to LLE careful re: hx of compression fx L1, 2; work on pelvis relalignment, gentle STM to back and LLE to improve mobility and ROM, ankle and knee jt mobs to improve mobility. careful w/exercises to avoid discomfort in painful areas as this gives her delayed flare up.
--- NOTE | 2024-05-27 16:34 | PT.OTN ---
Current Diagnoses Other chronic pain (05/27/24) Low back pain, unspecified (05/27/24) Physical Therapy Treatment Note PT-OP-A Visit Information Start: 04/16/24 14:47 Freq: Status: Active Protocol: Document 05/27/24 15:20 AB (Rec: 05/27/24 16:34 AB [id number]) Out-Patient Physical Therapy Visit Information Visit Information Visit Type Treatment Note Visit Start Time 15:20 Visit Stop Time 16:06 Visit Number 13 Number of HOSPICE ART THERAPIST Visits 3 PT-OP-B Current Condition Start: 04/16/24 14:47 Freq: Status: Active Protocol: Document 04/16/24 14:48 LR (Rec: 04/16/24 15:29 [facility] [id number]) Current Condition History of Current Condition Onset Date August 2022 Current Complaints LBP and leg pain History of Current Condition Pt had accident in August 2022 and fell of 8 ft ladder holding chainsaw. Dislocated L knee and had 2 different surgery (external fixation then internal fixation), lumbar spine compression fx ( L1 and 2) and has degneration of L4 and 5 w/compression of n root R>L L4&5. Did PT for several months and started seeing a pain management doctor and had horrible L ankle n pain and had injection that helped. 2nd injections in back helped w/n pain in thigh. DId PT from Jan 2023 ( [facility] until that point) October 2023. Finished d/t move to [place]. pain management doctor wanted her to continue. took a while to get into primary w/move. Feels like nerve pain is getting significantly worse and is able to do less. hx of fx of tibia w/screws (L) about 10 years ago d/t horse falling onto her and those screws had to be take out. Has appt w/pain management Jun 10 . 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 was up to 2500 steps in October in a day. Now it is harder to get to that amt d/t pain. LLE started to swell again and wearing compression socks during the day. Will be exhausted easily like going up a flight of stairs. Treatment Goals Patient/Caregiver Goals strength as much as can, try to avoid surgery, get gym program PT-OP-C Subjective Start: 04/16/24 14:47 Freq: Status: Active Protocol: Document 05/27/24 15:20 AB (Rec: 05/27/24 16:34 AB [id number]) OP-PT Subjective Patient Comments Patient Comments Shama reports the knee is better, but the SI is sore today. Shama rates left SI pain 08/22 start of session. PT-OP-D Balance Start: 04/16/24 14:47 Freq: Status: Active Protocol: Document 04/16/24 14:48 [facility] (Rec: 04/16/24 15:29 [facility] [id number]) Balance Tests Single Limb Standing Single Limb- Right 14 sec w/opp hip drop-back pain Single Limb- Left 6 sec w/opp hip drop PT-OP-F Manual Assessment Start: 04/16/24 14:47 Freq: Status: Active Protocol: Document 04/16/24 14:48 [facility] (Rec: 04/16/24 15:29 [facility] [id number]) Manual Assessments Other Manual Assessments Other Manual Assessments redder around R scars, L>R inflmation, no difference in heat PT-OP-G Mobility & Gait Start: 04/16/24 14:47 Freq: Status: Active Protocol: Document 04/16/24 14:48 [facility] (Rec: 04/16/24 15:29 [facility] [id number]) OP Gait Assessment Comments Gait Comments dec LLE stance time, wears heel lift in L shoe per past PT recommenation, slower L knee flex/ext, dec push off, rigid spinal movement PT-OP-J Posture/Palpation/Skin Start: 04/16/24 14:47 Freq: Status: Active Protocol: Document 05/16/24 14:26 [facility] (Rec: 05/16/24 15:22 [facility] [id number]) Posture Evaluation [facility] Postural Classification System Lumbar Protective Mechanism Left AP 0 Lumbar Protective Mechanism Right AP 0 Lumbar Protective Mechanism Left PA 2 Lumbar Protective Mechanism Right PA 2 PT-OP-K Range of Motion Start: 04/16/24 14:47 Freq: Status: Active Protocol: Document 04/16/24 14:48 LR (Rec: 04/16/24 15:29 [facility] [id number]) Lumbar Spine Range of Motion Lumbar Spine Active Percentage Flexion 20 Extension 5 Rotation Left 30 Rotation Right 50 Lateral Flexion Left 60 Lateral Flexion Right 60 Knee Goniometric Range of Motion Knee L Flexion Active (degrees) 104 Extension Active (degrees) 14 Ankle and Foot Goniometric Range of Motion Ankle and Foot Right Active Dorsiflexion with Knee Flexed 2 Dorsiflexion with Knee Extended 0 Plantarflexion 55 Left Active Dorsiflexion with Knee Flexed 10 Dorsiflexion with Knee Extended 13 Plantarflexion 52 Comments lacking DF to neutral in both positions PT-OP-L Special Tests Start: 04/16/24 14:47 Freq: Status: Active Protocol: Document 04/16/24 14:48 [facility] (Rec: 04/16/24 15:29 [facility] [id number]) Special Tests Lumbar Spine Special Tests Straight Leg Raise Test Results neg B -able to get to 90 ~ w/ opp knee bent Slump Test Results slump pos R; B positive ext sit PT-OP-M Strength Start: 04/16/24 14:47 Freq: Status: Active Protocol: Document 05/16/24 14:26 [facility] (Rec: 05/16/24 15:22 [facility] [id number]) Hip Strength Hip Manual Muscle Testing Right Flexion (L2) 4 Good Abduction 4- Good- External Rotation 4+ Good+ Internal Rotation 4+ Good+ Left Flexion (L2) 3+ Fair+ Abduction 3+ Fair+ External Rotation 3+ Fair+ Internal Rotation 4- Good- Knee Strength Knee Manual Muscle Testing Right Flexion (S2) 5 Normal Extension (L3) 5 Normal Left Flexion (S2) 4 Good Extension (L3) 4- Good- Ankle/Foot Strength Ankle and Foot Manual Muscle Testing Right Dorsiflexion (L4) 5 Normal Plantarflexion (S1) 5 Normal Inversion 5 Normal Eversion (S1) 5 Normal Comments PF tested seated Left Dorsiflexion (L4) 4+ Good+ Plantarflexion (S1) 4+ Good+ Inversion 4 Good Eversion (S1) 4+ Good+ Comments pain PT-OP-Q Treatments Start: 04/16/24 14:47 Freq: Status: Active Protocol: Document 05/27/24 15:20 AB (Rec: 05/27/24 16:34 AB [id number]) Therapeutic Exercises Supine Exercises bridge Supine Exercise Name cues segmental lift and glute engagement Side bilateral Reps/Minutes 7 Comments monitored for pain LTR Supine Exercise Name LTR Side bilateral Reps/Minutes 5sec x8 Comments cues comfortable range and core use Core Supine Exercise Name SL Isometric Side bilateral Resistance isometric Reps/Minutes 15 sec X 2 Comments cues for core activation, and breathwork Sitting Exercises seated hip abduction with band Side bilateral Resistance Lvl 4 Equipment Used HEP Reps/Minutes one minute Comments one minute for glute med activation. Other Exercises STS Other Exercise Name STS w/ band To HEP Resistance leve4 band Reps/Minutes raised seat height X 10 X2 Comments verbal cues for buttocks back and ot Therapeutic Activity Therapeutic Activity body mechanics Comments squat to reach water bottle on floor, lunge to reach water bottle on floor ( with UE use with left LE fwd lunge) VC for inc hip hinge, discussed functionally using these patterns and dec a rep of squats each time performed functionally. Manual Therapy Treatment Soft Tissue Mobilization myofascial left LE Body Location ant tib, quad, SI Mobilization Type Myofascial Release,Other Intensity/Depth Superficial Body Position Hooklying Comments and sidelying Moderate and to SI area hips, SI area Body Location bilateral SI, glute/piriformis , hip flexor at groin Mobilization Type Cross-Friction,Rolling, Sustained Pressure Intensity/Depth Moderate Body Position Sidelying Comments and hooklying Joint Mobilizations left ankle Joint Mulligan with movement TC mob Direction AP Grade III Body Position Standing Reps/Duration X10 X 3 Manual Techniques MET for right AI left PI Type and pubic shotgun Body Location SI Body Position Hooklying Reps/Duration 6X 6 seconds each PT-OP-R Modalities Start: 04/16/24 14:47 Freq: Status: Active Protocol: Document 05/10/24 14:30 AB (Rec: 05/10/24 16:23 AB [id number]) Hot Pack/Cold Pack Treatment left knee Location focus on pes anserine area Patient Position Hooklying PT-OP-T Assessment and Plan Start: 04/16/24 14:47 Freq: Status: Active Protocol: Document 05/27/24 15:20 AB (Rec: 05/27/24 16:34 AB [id number]) Physical Therapy Assessment Goals activity Short Term Goal (STG) Pt will report being able to go up a flight of stairs w/o c /o fatigue or pain greater than 4/10 1/2-still difficulty w/up. down ok STG Duration 05/29/24 Prison Goal (LTG) Pt will report being able to sit and stand and alternate between the options in order to allow pt to return to working. LTG Duration 07/10/24 strength Short Term Goal (STG) Pt will be indep w/HEP and will be able to start working out at the gym w/PT direction. 05/16-indep w/HEP, working on gym program options STG Duration 05/29/24 Toddler Guide Goal (LTG) pt will score at least 4/5 on BLE MMT and at least 3/5 on LPM to show improved stability to allow greater ease w/ activity. 2-improving LTG Duration 07/10/24 CHRIS Impairment Short Term Goal (STG) Pt will improve CHRIS score to at least 19/50 to show improved functional ability. 05/16- STG Duration 05/29/24 Toddler Guide Goal (LTG) Pt will improve CHRIS score to at least 9/50 to show improved functional ability. LTG Duration 07/10/24 Assessment Summary Assessment Patient reports SI pain is less end of session, continues to have difficulty squatting and lunging to reach items, discussed performing one less squat for each time she squats correctly vs bending at back/ SI at home to reach items. Physical Therapy Plan Frequency and Duration Frequency of Treatment 2x/Week Duration of treatment (weeks) 12 Plan of Care Start Date 04/16/24 Plan of Care End Date 07/10/24 Next Visit Focus/Plan Next Note Type Treatment Note Next Visit Plan balance exercises, stair and gait training work on circumfrential MFR to LLE careful re: hx of compression fx L1, 2; work on pelvis relalignment, gentle STM to back and LLE to improve mobility and ROM, ankle and knee jt mobs to improve mobility. careful w/exercises to avoid discomfort in painful areas as this gives her delayed flare up.
--- NOTE | 2024-05-29 14:29 | PT.OTN ---
Current Diagnoses Other chronic pain (05/29/24) Low back pain, unspecified (05/29/24) Physical Therapy Treatment Note PT-OP-A Visit Information Start: 04/16/24 14:47 Freq: Status: Active Protocol: Document 05/29/24 13:49 MB (Rec: 05/29/24 14:28 MB [id number]) Out-Patient Physical Therapy Visit Information Visit Information Visit Type Treatment Note Visit Start Time 13:49 Visit Stop Time 14:29 Visit Number 14 Number of INSPECTOR FINISHING Visits 0 PT-OP-B Current Condition Start: 04/16/24 14:47 Freq: Status: Active Protocol: Document 04/16/24 14:48 LR (Rec: 04/16/24 15:29 [facility] [id number]) Current Condition History of Current Condition Onset Date August 2022 Current Complaints LBP and leg pain History of Current Condition Pt had accident in August 2022 and fell of 8 ft ladder holding chainsaw. Dislocated L knee and had 2 different surgery (external fixation then internal fixation), lumbar spine compression fx ( L1 and 2) and has degneration of L4 and 5 w/compression of n root R>L L4&5. Did PT for several months and started seeing a pain management doctor and had horrible L ankle n pain and had injection that helped. 2nd injections in back helped w/n pain in thigh. DId PT from Jan 2023 ( [facility] until that point) October 2023. Finished d/t move to [place]. pain management doctor wanted her to continue. took a while to get into primary w/move. Feels like nerve pain is getting significantly worse and is able to do less. hx of fx of tibia w/screws (L) about 10 years ago d/t horse falling onto her and those screws had to be take out. Has appt w/pain management Jun 10 . 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 was up to 2500 steps in October in a day. Now it is harder to get to that amt d/t pain. LLE started to swell again and wearing compression socks during the day. Will be exhausted easily like going up a flight of stairs. Treatment Goals Patient/Caregiver Goals strength as much as can, try to avoid surgery, get gym program PT-OP-C Subjective Start: 04/16/24 14:47 Freq: Status: Active Protocol: Document 05/29/24 13:49 MB (Rec: 05/29/24 14:28 MB [id number]) OP-PT Subjective Patient Comments Patient Comments Pt con't with some SI joint movement and pain, trouble with mobility. PT-OP-D Balance Start: 04/16/24 14:47 Freq: Status: Active Protocol: Document 04/16/24 14:48 [facility] (Rec: 04/16/24 15:29 [facility] [id number]) Balance Tests Single Limb Standing Single Limb- Right 14 sec w/opp hip drop-back pain Single Limb- Left 6 sec w/opp hip drop PT-OP-F Manual Assessment Start: 04/16/24 14:47 Freq: Status: Active Protocol: Document 04/16/24 14:48 [facility] (Rec: 04/16/24 15:29 [facility] [id number]) Manual Assessments Other Manual Assessments Other Manual Assessments redder around R scars, L>R inflmation, no difference in heat PT-OP-G Mobility & Gait Start: 04/16/24 14:47 Freq: Status: Active Protocol: Document 04/16/24 14:48 [facility] (Rec: 04/16/24 15:29 [facility] [id number]) OP Gait Assessment Comments Gait Comments dec LLE stance time, wears heel lift in L shoe per past PT recommenation, slower L knee flex/ext, dec push off, rigid spinal movement PT-OP-J Posture/Palpation/Skin Start: 04/16/24 14:47 Freq: Status: Active Protocol: Document 05/16/24 14:26 [facility] (Rec: 05/16/24 15:22 [facility] [id number]) Posture Evaluation [facility] Postural Classification System Lumbar Protective Mechanism Left AP 0 Lumbar Protective Mechanism Right AP 0 Lumbar Protective Mechanism Left PA 2 Lumbar Protective Mechanism Right PA 2 PT-OP-K Range of Motion Start: 04/16/24 14:47 Freq: Status: Active Protocol: Document 04/16/24 14:48 [facility] (Rec: 04/16/24 15:29 [facility] [id number]) Lumbar Spine Range of Motion Lumbar Spine Active Percentage Flexion 20 Extension 5 Rotation Left 30 Rotation Right 50 Lateral Flexion Left 60 Lateral Flexion Right 60 Knee Goniometric Range of Motion Knee L Flexion Active (degrees) 104 Extension Active (degrees) 14 Ankle and Foot Goniometric Range of Motion Ankle and Foot Right Active Dorsiflexion with Knee Flexed 2 Dorsiflexion with Knee Extended 0 Plantarflexion 55 Left Active Dorsiflexion with Knee Flexed 10 Dorsiflexion with Knee Extended 13 Plantarflexion 52 Comments lacking DF to neutral in both positions PT-OP-L Special Tests Start: 04/16/24 14:47 Freq: Status: Active Protocol: Document 04/16/24 14:48 [facility] (Rec: 04/16/24 15:29 [facility] [id number]) Special Tests Lumbar Spine Special Tests Straight Leg Raise Test Results neg B -able to get to 90 ~ w/ opp knee bent Slump Test Results slump pos R; B positive ext sit PT-OP-M Strength Start: 04/16/24 14:47 Freq: Status: Active Protocol: Document 05/16/24 14:26 [facility] (Rec: 05/16/24 15:22 [facility] [id number]) Hip Strength Hip Manual Muscle Testing Right Flexion (L2) 4 Good Abduction 4- Good- External Rotation 4+ Good+ Internal Rotation 4+ Good+ Left Flexion (L2) 3+ Fair+ Abduction 3+ Fair+ External Rotation 3+ Fair+ Internal Rotation 4- Good- Knee Strength Knee Manual Muscle Testing Right Flexion (S2) 5 Normal Extension (L3) 5 Normal Left Flexion (S2) 4 Good Extension (L3) 4- Good- Ankle/Foot Strength Ankle and Foot Manual Muscle Testing Right Dorsiflexion (L4) 5 Normal Plantarflexion (S1) 5 Normal Inversion 5 Normal Eversion (S1) 5 Normal Comments PF tested seated Left Dorsiflexion (L4) 4+ Good+ Plantarflexion (S1) 4+ Good+ Inversion 4 Good Eversion (S1) 4+ Good+ Comments pain PT-OP-Q Treatments Start: 04/16/24 14:47 Freq: Status: Active Protocol: Document 05/29/24 13:49 MB (Rec: 05/29/24 14:28 MB [id number]) Manual Therapy Treatment Consent Patient gave verbal consent for manual Yes treatment Other Other Manual Treatments Pt in right side lying: STM and Trp treatment today: left fibularis longus, TFL, glute min and piriformis and QL. STM and TrP left vastus medialis, left vastus laterlis and rectus, extended positional release in supine hip flexor on the left. PT-OP-R Modalities Start: 04/16/24 14:47 Freq: Status: Active Protocol: Document 05/10/24 14:30 AB (Rec: 05/10/24 16:23 AB [id number]) Hot Pack/Cold Pack Treatment left knee Location focus on pes anserine area Patient Position Hooklying PT-OP-T Assessment and Plan Start: 04/16/24 14:47 Freq: Status: Active Protocol: Document 05/29/24 13:49 MB (Rec: 05/29/24 14:28 MB [id number]) Physical Therapy Assessment Goals activity Short Term Goal (STG) Pt will report being able to go up a flight of stairs w/o c /o fatigue or pain greater than 4/10 1/2-still difficulty w/up. down ok STG Duration 05/29/24 Starch Cooker Goal (LTG) Pt will report being able to sit and stand and alternate between the options in order to allow pt to return to working. LTG Duration 07/10/24 strength Short Term Goal (STG) Pt will be indep w/HEP and will be able to start working out at the gym w/PT direction. 1/2-indep w/HEP, working on gym program options STG Duration 05/29/24 [facility] Goal (LTG) pt will score at least 4/5 on BLE MMT and at least 3/5 on LPM to show improved stability to allow greater ease w/ activity. 1/2-improving LTG Duration 07/10/24 CHRIS Impairment 25/50 Short Term Goal (STG) Pt will improve CHRIS score to at least 19/50 to show improved functional ability. 12-/50 STG Duration 05/29/24 [facility] Goal (LTG) Pt will improve CHRIS score to at least 9/50 to show improved functional ability. LTG Duration 07/10/24 Assessment Summary Assessment Tolerates manual work well today and monitor response. Left hip flexor was very tight . Physical Therapy Plan Frequency and Duration Frequency of Treatment 2x/Week Duration of treatment (weeks) 12 Plan of Care Start Date 04/16/24 Plan of Care End Date 07/10/24 Next Visit Focus/Plan Next Note Type Treatment Note Next Visit Plan Con't per plan: balance exercises, stair and gait training work on circumfrential MFR to LLE careful re: hx of compression fx L1, 2; work on pelvis relalignment, gentle STM to back and LLE to improve mobility and ROM, ankle and knee jt mobs to improve mobility. careful w/exercises to avoid discomfort in painful areas as this gives her delayed flare up.
--- NOTE | 2024-06-03 16:15 | PT.OTN ---
Current Diagnoses Other chronic pain (06/03/24) Low back pain, unspecified (06/03/24) Physical Therapy Treatment Note PT-OP-A Visit Information Start: 04/16/24 14:47 Freq: Status: Active Protocol: Document 06/03/24 12:55 AB (Rec: 06/03/24 16:15 AB [id number]) Out-Patient Physical Therapy Visit Information Visit Information Visit Type Treatment Note Visit Start Time 15:17 Visit Stop Time 15:03 Visit Number 15 Number of ASSURANCE MANAGER INSURANCE Visits 1 PT-OP-B Current Condition Start: 04/16/24 14:47 Freq: Status: Active Protocol: Document 04/16/24 14:48 LR (Rec: 04/16/24 15:29 [facility] [id number]) Current Condition History of Current Condition Onset Date August 2022 Current Complaints LBP and leg pain History of Current Condition Pt had accident in August 2022 and fell of 8 ft ladder holding chainsaw. Dislocated L knee and had 2 different surgery (external fixation then internal fixation), lumbar spine compression fx ( L1 and 2) and has degneration of L4 and 5 w/compression of n root R>L L4&5. Did PT for several months and started seeing a pain management doctor and had horrible L ankle n pain and had injection that helped. 2nd injections in back helped w/n pain in thigh. DId PT from Jan 2023 ( [facility] until that point) October 2023. Finished d/t move to [place]. pain management doctor wanted her to continue. took a while to get into primary w/move. Feels like nerve pain is getting significantly worse and is able to do less. hx of fx of tibia w/screws (L) about 10 years ago d/t horse falling onto her and those screws had to be take out. Has appt w/pain management Jun 10 . 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 was up to 2500 steps in October in a day. Now it is harder to get to that amt d/t pain. LLE started to swell again and wearing compression socks during the day. Will be exhausted easily like going up a flight of stairs. Treatment Goals Patient/Caregiver Goals strength as much as can, try to avoid surgery, get gym program PT-OP-C Subjective Start: 04/16/24 14:47 Freq: Status: Active Protocol: Document 06/03/24 12:55 AB (Rec: 06/03/24 16:15 AB [id number]) OP-PT Subjective Patient Comments Patient Comments Patient reports she is better, sciatic pain is better, pain is down to 3/10, comments the Trp treatment was helpful. Patient reports ant tib area has swollen up. Patient reports she may be walking more, did not exercise more the next day, but walking has been better. PT-OP-D Balance Start: 04/16/24 14:47 Freq: Status: Active Protocol: Document 04/16/24 14:48 LR (Rec: 04/16/24 15:29 [facility] [id number]) Balance Tests Single Limb Standing Single Limb- Right 14 sec w/opp hip drop-back pain Single Limb- Left 6 sec w/opp hip drop PT-OP-F Manual Assessment Start: 04/16/24 14:47 Freq: Status: Active Protocol: Document 04/16/24 14:48 [facility] (Rec: 04/16/24 15:29 [facility] [id number]) Manual Assessments Other Manual Assessments Other Manual Assessments redder around R scars, L>R inflmation, no difference in heat PT-OP-G Mobility & Gait Start: 04/16/24 14:47 Freq: Status: Active Protocol: Document 04/16/24 14:48 LR (Rec: 04/16/24 15:29 [facility] [id number]) OP Gait Assessment Comments Gait Comments dec LLE stance time, wears heel lift in L shoe per past PT recommenation, slower L knee flex/ext, dec push off, rigid spinal movement PT-OP-J Posture/Palpation/Skin Start: 04/16/24 14:47 Freq: Status: Active Protocol: Document 05/16/24 14:26 LR (Rec: 05/16/24 15:22 [facility] [id number]) Posture Evaluation [facility] Postural Classification System Lumbar Protective Mechanism Left AP 0 Lumbar Protective Mechanism Right AP 0 Lumbar Protective Mechanism Left PA 2 Lumbar Protective Mechanism Right PA 2 PT-OP-K Range of Motion Start: 04/16/24 14:47 Freq: Status: Active Protocol: Document 04/16/24 14:48 LR (Rec: 04/16/24 15:29 [facility] [id number]) Lumbar Spine Range of Motion Lumbar Spine Active Percentage Flexion 20 Extension 5 Rotation Left 30 Rotation Right 50 Lateral Flexion Left 60 Lateral Flexion Right 60 Knee Goniometric Range of Motion Knee L Flexion Active (degrees) 104 Extension Active (degrees) 14 Ankle and Foot Goniometric Range of Motion Ankle and Foot Right Active Dorsiflexion with Knee Flexed 2 Dorsiflexion with Knee Extended 0 Plantarflexion 55 Left Active Dorsiflexion with Knee Flexed 10 Dorsiflexion with Knee Extended 13 Plantarflexion 52 Comments lacking DF to neutral in both positions PT-OP-L Special Tests Start: 04/16/24 14:47 Freq: Status: Active Protocol: Document 04/16/24 14:48 [facility] (Rec: 04/16/24 15:29 [facility] [id number]) Special Tests Lumbar Spine Special Tests Straight Leg Raise Test Results neg B -able to get to 90 ~ w/ opp knee bent Slump Test Results slump pos R; B positive ext sit PT-OP-M Strength Start: 04/16/24 14:47 Freq: Status: Active Protocol: Document 05/16/24 14:26 [facility] (Rec: 05/16/24 15:22 [facility] [id number]) Hip Strength Hip Manual Muscle Testing Right Flexion (L2) 4 Good Abduction 4- Good- External Rotation 4+ Good+ Internal Rotation 4+ Good+ Left Flexion (L2) 3+ Fair+ Abduction 3+ Fair+ External Rotation 3+ Fair+ Internal Rotation 4- Good- Knee Strength Knee Manual Muscle Testing Right Flexion (S2) 5 Normal Extension (L3) 5 Normal Left Flexion (S2) 4 Good Extension (L3) 4- Good- Ankle/Foot Strength Ankle and Foot Manual Muscle Testing Right Dorsiflexion (L4) 5 Normal Plantarflexion (S1) 5 Normal Inversion 5 Normal Eversion (S1) 5 Normal Comments PF tested seated Left Dorsiflexion (L4) 4+ Good+ Plantarflexion (S1) 4+ Good+ Inversion 4 Good Eversion (S1) 4+ Good+ Comments pain PT-OP-Q Treatments Start: 04/16/24 14:47 Freq: Status: Active Protocol: Document 06/03/24 12:55 AB (Rec: 06/03/24 16:15 AB [id number]) Gym Equipment Shuttle Balance red Details normal DAYANNA and stagger Reps/Duration 4 min Comments CGA with visual scanning and head turns. Therapeutic Exercises Standing Exercises calf stretches Standing Exercise Name gastroc and soleus Side bilateral Resistance LEILANI Reps/Minutes 60 sec each X1 Comments post MW Other Exercises isometrics Other Exercise Name glute med isometric HEP Side bilateral Reps/Minutes one minute each LE Comments verbal and visual cues Manual Therapy Treatment Soft Tissue Mobilization myofascial left LE Body Location ant tib, quad, Mobilization Type Myofascial Release,Other Intensity/Depth Superficial Body Position Hooklying calf Body Location L calf and HS Mobilization Type Rolling Intensity/Depth Moderate Joint Mobilizations left ankle Joint Mulligan with movement TC mob Direction AP Grade III Body Position Standing Reps/Duration X10 X 2 Taping KT Comments I strip under patella and to sides of patella also to I strips to unload fat pad L knee Neuro Re-Education Treatment Balance Activities hurdles Details CGA Reps/Duration 10 feet X2 with UE use X4 w/o UE use X 2 side step tandem stepping Details CGA hands above bars Reps/Duration 10 feet X 6 PT-OP-R Modalities Start: 04/16/24 14:47 Freq: Status: Active Protocol: Document 05/10/24 14:30 AB (Rec: 05/10/24 16:23 AB [id number]) Hot Pack/Cold Pack Treatment left knee Location focus on pes anserine area Patient Position Hooklying PT-OP-T Assessment and Plan Start: 04/16/24 14:47 Freq: Status: Active Protocol: Document 06/03/24 12:55 AB (Rec: 06/03/24 16:15 AB [id number]) Physical Therapy Assessment Goals activity Short Term Goal (STG) Pt will report being able to go up a flight of stairs w/o c /o fatigue or pain greater than 4/10 12-still difficulty w/up. down ok STG Duration 05/29/24 Group Home Goal (LTG) Pt will report being able to sit and stand and alternate between the options in order to allow pt to return to working. LTG Duration 07/10/24 strength Short Term Goal (STG) Pt will be indep w/HEP and will be able to start working out at the gym w/PT direction. 2-indep w/HEP, working on gym program options STG Duration 05/29/24 Physical Metallurgist Goal (LTG) pt will score at least 4/5 on BLE MMT and at least 3/5 on LPM to show improved stability to allow greater ease w/ activity. 2-improving LTG Duration 07/10/24 CHRIS Impairment Short Term Goal (STG) Pt will improve CHRIS score to at least 19/50 to show improved functional ability. 05/16- STG Duration 05/29/24 Group Home Goal (LTG) Pt will improve CHRIS score to at least 9/50 to show improved functional ability. LTG Duration 07/10/24 Assessment Summary Assessment Shama rates pain 2/10 left LE end of session, SLS w/o UE use left LE continues to be limited. Physical Therapy Plan Frequency and Duration Frequency of Treatment 2x/Week Duration of treatment (weeks) 12 Plan of Care Start Date 04/16/24 Plan of Care End Date 07/10/24 Next Visit Focus/Plan Next Note Type Treatment Note Next Visit Plan Con't per plan: balance exercises, stair and gait training work on circumfrential MFR to LLE careful re: hx of compression fx L1, 2; work on pelvis relalignment, gentle STM to back and LLE to improve mobility and ROM, ankle and knee jt mobs to improve mobility. careful w/exercises to avoid discomfort in painful areas as this gives her delayed flare up.
--- NOTE | 2024-06-05 16:55 | PT.OTN ---
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 Dislocated L knee and had 2 different surgery (external fixation then internal fixation), lumbar spine compression fx ( L1 and 2) and has degneration of L4 and 5 w/compression of n root R>L L4&5. Did PT for several months and started seeing a pain management doctor and had horrible L ankle n pain and had injection that helped. 2nd injections in back helped w/n pain in thigh. DId PT from Jan 2023 ( [facility] until that point) October 2023. Finished d/t move to [place]. pain management doctor wanted her to continue. took a while to get into primary w/move. Feels like nerve pain is getting significantly worse and is able to do less. hx of fx of tibia w/screws (L) about 10 years ago d/t horse falling onto her and those screws had to be take out. Has appt w/pain management Jun 10 . 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 was up to 2500 steps in October in a day. Now it is harder to get to that amt d/t pain. LLE started to swell again and wearing compression socks during the day. Will be exhausted easily like going up a flight of stairs. Treatment Goals Patient/Caregiver Goals strength as much as can, try to avoid surgery, get gym program PT-OP-C Subjective Start: 04/16/24 14:47 Freq: Status: Active Protocol: Document 06/05/24 15:20 [facility] (Rec: 06/05/24 16:54 [facility] [id number]) OP-PT Subjective Patient Comments Patient Comments Pt woke up yesterday with inc again in pain to L SI region that wraps around to front of hip. She is dissappointed d/t doing so well prior. She was in/out of car a lot that day. PT-OP-D Balance Start: 04/16/24 14:47 Freq: Status: Active Protocol: Document 04/16/24 14:48 [facility] (Rec: 04/16/24 15:29 [facility] [id number]) Balance Tests Single Limb Standing Single Limb- Right 14 sec w/opp hip drop-back pain Single Limb- Left 6 sec w/opp hip drop PT-OP-F Manual Assessment Start: 04/16/24 14:47 Freq: Status: Active Protocol: Document 04/16/24 14:48 [facility] (Rec: 04/16/24 15:29 [facility] [id number]) Manual Assessments Other Manual Assessments Other Manual Assessments redder around R scars, L>R inflmation, no difference in heat PT-OP-G Mobility & Gait Start: 04/16/24 14:47 Freq: Status: Active Protocol: Document 04/16/24 14:48 [facility] (Rec: 04/16/24 15:29 [facility] [id number]) OP Gait Assessment Comments Gait Comments dec LLE stance time, wears heel lift in L shoe per past PT recommenation, slower L knee flex/ext, dec push off, rigid spinal movement PT-OP-J Posture/Palpation/Skin Start: 04/16/24 14:47 Freq: Status: Active Protocol: Document 05/16/24 14:26 [facility] (Rec: 05/16/24 15:22 [facility] [id number]) Posture Evaluation Braxton Postural Classification System Lumbar Protective Mechanism Left AP 0 Lumbar Protective Mechanism Right AP 0 Lumbar Protective Mechanism Left PA 2 Lumbar Protective Mechanism Right PA 2 PT-OP-K Range of Motion Start: 04/16/24 14:47 Freq: Status: Active Protocol: Document 04/16/24 14:48 [facility] (Rec: 04/16/24 15:29 [facility] [id number]) Lumbar Spine Range of Motion Lumbar Spine Active Percentage Flexion 20 Extension 5 Rotation Left 30 Rotation Right 50 Lateral Flexion Left 60 Lateral Flexion Right 60 Knee Goniometric Range of Motion Knee L Flexion Active (degrees) 104 Extension Active (degrees) 14 Ankle and Foot Goniometric Range of Motion Ankle and Foot Right Active Dorsiflexion with Knee Flexed 2 Dorsiflexion with Knee Extended 0 Plantarflexion 55 Left Active Dorsiflexion with Knee Flexed 10 Dorsiflexion with Knee Extended 13 Plantarflexion 52 Comments lacking DF to neutral in both positions PT-OP-L Special Tests Start: 04/16/24 14:47 Freq: Status: Active Protocol: Document 04/16/24 14:48 [facility] (Rec: 04/16/24 15:29 [facility] [id number]) Special Tests Lumbar Spine Special Tests Straight Leg Raise Test Results neg B -able to get to 90 ~ w/ opp knee bent Slump Test Results slump pos R; B positive ext sit PT-OP-M Strength Start: 04/16/24 14:47 Freq: Status: Active Protocol: Document 05/16/24 14:26 [facility] (Rec: 05/16/24 15:22 [facility] [id number]) Hip Strength Hip Manual Muscle Testing Right Flexion (L2) 4 Good Abduction 4- Good- External Rotation 4+ Good+ Internal Rotation 4+ Good+ Left Flexion (L2) 3+ Fair+ Abduction 3+ Fair+ External Rotation 3+ Fair+ Internal Rotation 4- Good- Knee Strength Knee Manual Muscle Testing Right Flexion (S2) 5 Normal Extension (L3) 5 Normal Left Flexion (S2) 4 Good Extension (L3) 4- Good- Ankle/Foot Strength Ankle and Foot Manual Muscle Testing Right Dorsiflexion (L4) 5 Normal Plantarflexion (S1) 5 Normal Inversion 5 Normal Eversion (S1) 5 Normal Comments PF tested seated Left Dorsiflexion (L4) 4+ Good+ Plantarflexion (S1) 4+ Good+ Inversion 4 Good Eversion (S1) 4+ Good+ Comments pain PT-OP-Q Treatments Start: 04/16/24 14:47 Freq: Status: Active Protocol: Document 06/05/24 15:20 [facility] (Rec: 06/05/24 16:54 [facility] [id number]) Therapeutic Exercises Sidelying Exercises [employer] [facility] Sidelying Exercise Name LEs only Side bilateral Reps/Minutes 10 Comments cues comfortable range Standing Exercises gait at wall Standing Exercise Name hip ext/knee ext Side right Reps/Minutes 3 min Comments unable w/o pain TKE Side right Equipment Used L1 Reps/Minutes 10 Manual Therapy Treatment Consent Patient gave verbal consent for manual Yes treatment Soft Tissue Mobilization hip flexor Body Location L iliacus proximal and distal Mobilization Type Sustained Pressure Intensity/Depth Moderate Body Position Supine Comments w/pt legs on PT legs Joint Mobilizations hip Comments L add s/l c/r innominate Comments L add and Ext c/r Neuro Re-Education Treatment Other Activities PNF Comments 1. post dep facilitation L pelvis thru LLE traction 2. post dep sustained hold progressed to w/LLE pattern ( ext, abd) -mult sustained holds facilitation Comments LLE traction for facilitation into glute activation w/4 prolonged holds PT-OP-R Modalities Start: 04/16/24 14:47 Freq: Status: Active Protocol: Document 05/10/24 14:30 [facility] (Rec: 05/10/24 16:23 [facility] [id number]) Hot Pack/Cold Pack Treatment left knee Location focus on pes anserine area Patient Position Hooklying PT-OP-T Assessment and Plan Start: 04/16/24 14:47 Freq: Status: Active Protocol: Document 06/05/24 15:20 [facility] (Rec: 06/05/24 16:54 [facility] [id number]) Physical Therapy Assessment Goals activity Short Term Goal (STG) Pt will report being able to go up a flight of stairs w/o c /o fatigue or pain greater than 4/10 1/2-still difficulty w/up. down ok STG Duration 05/29/24 Education Rn Goal (LTG) Pt will report being able to sit and stand and alternate between the options in order to allow pt to return to working. LTG Duration 07/10/24 strength Short Term Goal (STG) Pt will be indep w/HEP and will be able to start working out at the gym w/PT direction. 12-indep w/HEP, working on gym program options STG Duration 05/29/24 Longterm Goal (LTG) pt will score at least 4/5 on BLE MMT and at least 3/5 on LPM to show improved stability to allow greater ease w/ activity. 1/2-improving LTG Duration 07/10/24 CHRIS Impairment 25/50 Short Term Goal (STG) Pt will improve CHRIS score to at least 19/50 to show improved functional ability. 05/16- STG Duration 05/29/24 Education Rn Goal (LTG) Pt will improve CHRIS score to at least 9/50 to show improved functional ability. LTG Duration 07/10/24 Assessment Summary Assessment Pt had improved ability to amb after manual and less pain and easier time standing w/wt equal btwn LEs. Has dec facilitation into end range knee ext and hip ext in WB. Physical Therapy Plan Frequency and Duration Frequency of Treatment 2x/Week Duration of treatment (weeks) 12 Plan of Care Start Date 04/16/24 Plan of Care End Date 07/10/24 Next Visit Focus/Plan Next Note Type Treatment Note Next Visit Plan work on ability to get TKE and hip ext L, balance exercises, stair and gait training work on circumfrential MFR to LLE careful re: hx of compression fx L1, 2; work on pelvis relalignment, gentle STM to back and LLE to improve mobility and ROM, ankle and knee jt mobs to improve mobility.
--- NOTE | 2024-06-11 16:45 | PT.OTN ---
Current Diagnoses Other chronic pain (06/11/24) Low back pain, unspecified (06/11/24) Physical Therapy Treatment Note PT-OP-A Visit Information Start: 04/16/24 14:47 Freq: Status: Active Protocol: Document 06/11/24 12:59 [facility] (Rec: 06/11/24 16:44 [facility] [id number]) Out-Patient Physical Therapy Visit Information Visit Information Visit Type Treatment Note Visit Start Time 14:40 Visit Stop Time 15:21 Visit Number 17 Number of AUTHORS MOTIVATIONAL Visits 1 PT-OP-B Current Condition Start: 04/16/24 14:47 Freq: Status: Active Protocol: Document 04/16/24 14:48 [facility] (Rec: 04/16/24 15:29 [facility] [id number]) Current Condition History of Current Condition Onset Date August 2022 Current Complaints LBP and leg pain History of Current Condition Pt had accident in August 2022 and fell of 8 ft ladder holding chainsaw. Dislocated L knee and had 2 different surgery (external fixation then internal fixation), lumbar spine compression fx ( L1 and 2) and has degneration of L4 and 5 w/compression of n root R>L L4&5. Did PT for several months and started seeing a pain management doctor and had horrible L ankle n pain and had injection that helped. 2nd injections in back helped w/n pain in thigh. DId PT from Jan 2023 ( [facility] until that point) October 2023. Finished d/t move to [place]. pain management doctor wanted her to continue. took a while to get into primary w/move. Feels like nerve pain is getting significantly worse and is able to do less. hx of fx of tibia w/screws (L) about 10 years ago d/t horse falling onto her and those screws had to be take out. Has appt w/pain management Jun 10 . 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 was up to 2500 steps in October in a day. Now it is harder to get to that amt d/t pain. LLE started to swell again and wearing compression socks during the day. Will be exhausted easily like going up a flight of stairs. Treatment Goals Patient/Caregiver Goals strength as much as can, try to avoid surgery, get gym program PT-OP-C Subjective Start: 04/16/24 14:47 Freq: Status: Active Protocol: Document 06/11/24 12:59 [facility] (Rec: 06/11/24 16:44 [facility] [id number]) OP-PT Subjective Patient Comments Patient Comments Patient reports the pain wrapping around the SI persists, comments it was better post previous session. Patient reports she got more info from pain managment regarding compression fx. Patient reports she will be having an MRI and EMG, due to severity of compression fx and radicular symptoms. PT-OP-D Balance Start: 04/16/24 14:47 Freq: Status: Active Protocol: Document 04/16/24 14:48 [facility] (Rec: 04/16/24 15:29 [facility] [id number]) Balance Tests Single Limb Standing Single Limb- Right 14 sec w/opp hip drop-back pain Single Limb- Left 6 sec w/opp hip drop PT-OP-F Manual Assessment Start: 04/16/24 14:47 Freq: Status: Active Protocol: Document 04/16/24 14:48 [facility] (Rec: 04/16/24 15:29 [facility] [id number]) Manual Assessments Other Manual Assessments Other Manual Assessments redder around R scars, L>R inflmation, no difference in heat PT-OP-G Mobility & Gait Start: 04/16/24 14:47 Freq: Status: Active Protocol: Document 04/16/24 14:48 [facility] (Rec: 04/16/24 15:29 [facility] [id number]) OP Gait Assessment Comments Gait Comments dec LLE stance time, wears heel lift in L shoe per past PT recommenation, slower L knee flex/ext, dec push off, rigid spinal movement PT-OP-J Posture/Palpation/Skin Start: 04/16/24 14:47 Freq: Status: Active Protocol: Document 05/16/24 14:26 [facility] (Rec: 05/16/24 15:22 [facility] [id number]) Posture Evaluation Braxton Postural Classification System Lumbar Protective Mechanism Left AP 0 Lumbar Protective Mechanism Right AP 0 Lumbar Protective Mechanism Left PA 2 Lumbar Protective Mechanism Right PA 2 PT-OP-K Range of Motion Start: 04/16/24 14:47 Freq: Status: Active Protocol: Document 04/16/24 14:48 [facility] (Rec: 04/16/24 15:29 [facility] [id number]) Lumbar Spine Range of Motion Lumbar Spine Active Percentage Flexion 20 Extension 5 Rotation Left 30 Rotation Right 50 Lateral Flexion Left 60 Lateral Flexion Right 60 Knee Goniometric Range of Motion Knee L Flexion Active (degrees) 104 Extension Active (degrees) 14 Ankle and Foot Goniometric Range of Motion Ankle and Foot Right Active Dorsiflexion with Knee Flexed 2 Dorsiflexion with Knee Extended 0 Plantarflexion 55 Left Active Dorsiflexion with Knee Flexed 10 Dorsiflexion with Knee Extended 13 Plantarflexion 52 Comments lacking DF to neutral in both positions PT-OP-L Special Tests Start: 04/16/24 14:47 Freq: Status: Active Protocol: Document 04/16/24 14:48 [facility] (Rec: 04/16/24 15:29 [facility] [id number]) Special Tests Lumbar Spine Special Tests Straight Leg Raise Test Results neg B -able to get to 90 ~ w/ opp knee bent Slump Test Results slump pos R; B positive ext sit PT-OP-M Strength Start: 04/16/24 14:47 Freq: Status: Active Protocol: Document 05/16/24 14:26 [facility] (Rec: 05/16/24 15:22 [facility] [id number]) Hip Strength Hip Manual Muscle Testing Right Flexion (L2) 4 Good Abduction 4- Good- External Rotation 4+ Good+ Internal Rotation 4+ Good+ Left Flexion (L2) 3+ Fair+ Abduction 3+ Fair+ External Rotation 3+ Fair+ Internal Rotation 4- Good- Knee Strength Knee Manual Muscle Testing Right Flexion (S2) 5 Normal Extension (L3) 5 Normal Left Flexion (S2) 4 Good Extension (L3) 4- Good- Ankle/Foot Strength Ankle and Foot Manual Muscle Testing Right Dorsiflexion (L4) 5 Normal Plantarflexion (S1) 5 Normal Inversion 5 Normal Eversion (S1) 5 Normal Comments PF tested seated Left Dorsiflexion (L4) 4+ Good+ Plantarflexion (S1) 4+ Good+ Inversion 4 Good Eversion (S1) 4+ Good+ Comments pain PT-OP-Q Treatments Start: 04/16/24 14:47 Freq: Status: Active Protocol: Document 06/11/24 12:59 [facility] (Rec: 06/11/24 16:44 [facility] [id number]) Therapeutic Exercises Supine Exercises piriformis stretch Supine Exercise Name HEP Side bilateral Equipment Used HEP Reps/Minutes one minute each LE Comments pre MET post manual Mika stretch Supine Exercise Name w/opp knee to chest Side bilateral Reps/Minutes 1 min ea Comments Pre MET post manual with AROM knee flexion Sitting Exercises seated hip abduction with band Side bilateral Resistance Lvl 3 Equipment Used HEP Reps/Minutes one minute Comments one minute for glute med activation. Other Exercises hip extension Other Exercise Name bent forearms resting on counter Reps/Minutes X10 Comments verbal cues, comments L LE is difficulty Therapeutic Activity Therapeutic Activity supine to sit Comments Verbal cues for normal mvt pattern supine to and from sit , patient initiates with a sit up supine to sit during session. Manual Therapy Treatment Consent Patient gave verbal consent for manual Yes treatment Soft Tissue Mobilization myofascial left LE Body Location ant tib, quad, Mobilization Type Myofascial Release,Other Intensity/Depth Superficial Body Position Hooklying hips, SI area Body Location bilateral SI, glute/piriformis , hip flexor at groin Mobilization Type Cross-Friction,Rolling, Sustained Pressure Intensity/Depth Moderate Body Position Sidelying Comments and hooklying Manual Techniques MET for right AI left PI Type and pubic shotgun Body Location SI Body Position Hooklying Reps/Duration 6X 6 seconds each PT-OP-R Modalities Start: 04/16/24 14:47 Freq: Status: Active Protocol: Document 05/10/24 14:30 AB (Rec: 05/10/24 16:23 AB [id number]) Hot Pack/Cold Pack Treatment left knee Location focus on pes anserine area Patient Position Hooklying PT-OP-T Assessment and Plan Start: 04/16/24 14:47 Freq: Status: Active Protocol: Document 06/11/24 12:59 [facility] (Rec: 06/11/24 16:44 AB [id number]) Physical Therapy Assessment Goals activity Short Term Goal (STG) Pt will report being able to go up a flight of stairs w/o c /o fatigue or pain greater than 4/10 1/2-still difficulty w/up. down ok STG Duration 05/29/24 Snf Goal (LTG) Pt will report being able to sit and stand and alternate between the options in order to allow pt to return to working. LTG Duration 07/10/24 strength Short Term Goal (STG) Pt will be indep w/HEP and will be able to start working out at the gym w/PT direction. 05/16-indep w/HEP, working on gym program options STG Duration 05/29/24 Snf Goal (LTG) pt will score at least 4/5 on BLE MMT and at least 3/5 on LPM to show improved stability to allow greater ease w/ activity. 2-improving LTG Duration 07/10/24 CHRIS Impairment 25/50 Short Term Goal (STG) Pt will improve CHRIS score to at least 19/50 to show improved functional ability. 05/16- STG Duration 05/29/24 Snf Goal (LTG) Pt will improve CHRIS score to at least 9/50 to show improved functional ability. LTG Duration 07/10/24 Assessment Summary Assessment Patient reports feeling more stable end of session. Physical Therapy Plan Frequency and Duration Frequency of Treatment 2x/Week Duration of treatment (weeks) 12 Plan of Care Start Date 04/16/24 Plan of Care End Date 07/10/24 Next Visit Focus/Plan Next Note Type Treatment Note Next Visit Plan work on ability to get TKE and hip ext L, balance exercises, stair and gait training work on circumfrential MFR to LLE careful re: hx of compression fx L1, 2; work on pelvis relalignment, gentle STM to back and LLE to improve mobility and ROM, ankle and knee jt mobs to improve mobility.
--- NOTE | 2024-06-13 16:28 | PT.OTN ---
Current Diagnoses Other chronic pain (06/13/24) Low back pain, unspecified (06/13/24) Physical Therapy Treatment Note PT-OP-A Visit Information Start: 04/16/24 14:47 Freq: Status: Active Protocol: Document 06/13/24 14:27 AB (Rec: 06/13/24 16:28 AB [id number]) Out-Patient Physical Therapy Visit Information Visit Information Visit Type Treatment Note Visit Start Time 14:34 Visit Stop Time 15:18 Visit Number 18 Number of CLINICAL INVESTIGATOR Visits 2 PT-OP-B Current Condition Start: 04/16/24 14:47 Freq: Status: Active Protocol: Document 04/16/24 14:48 LR (Rec: 04/16/24 15:29 [facility] [id number]) Current Condition History of Current Condition Onset Date August 2022 Current Complaints LBP and leg pain History of Current Condition Pt had accident in August 2022 and fell of 8 ft ladder holding chainsaw. Dislocated L knee and had 2 different surgery (external fixation then internal fixation), lumbar spine compression fx ( L1 and 2) and has degneration of L4 and 5 w/compression of n root R>L L4&5. Did PT for several months and started seeing a pain management doctor and had horrible L ankle n pain and had injection that helped. 2nd injections in back helped w/n pain in thigh. DId PT from Jan 2023 ( [facility] until that point) October 2023. Finished d/t move to [place]. pain management doctor wanted her to continue. took a while to get into primary w/move. Feels like nerve pain is getting significantly worse and is able to do less. hx of fx of tibia w/screws (L) about 10 years ago d/t horse falling onto her and those screws had to be take out. Has appt w/pain management Jun 10 . 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 was up to 2500 steps in October in a day. Now it is harder to get to that amt d/t pain. LLE started to swell again and wearing compression socks during the day. Will be exhausted easily like going up a flight of stairs. Treatment Goals Patient/Caregiver Goals strength as much as can, try to avoid surgery, get gym program PT-OP-C Subjective Start: 04/16/24 14:47 Freq: Status: Active Protocol: Document 06/13/24 14:27 AB (Rec: 06/13/24 16:28 AB [id number]) OP-PT Subjective Patient Comments Patient Comments Patient reports pain was worse yesterday. Is better today pain is 4/10 L side SI. PT-OP-D Balance Start: 04/16/24 14:47 Freq: Status: Active Protocol: Document 04/16/24 14:48 [facility] (Rec: 04/16/24 15:29 [facility] [id number]) Balance Tests Single Limb Standing Single Limb- Right 14 sec w/opp hip drop-back pain Single Limb- Left 6 sec w/opp hip drop PT-OP-F Manual Assessment Start: 04/16/24 14:47 Freq: Status: Active Protocol: Document 04/16/24 14:48 [facility] (Rec: 04/16/24 15:29 [facility] [id number]) Manual Assessments Other Manual Assessments Other Manual Assessments redder around R scars, L>R inflmation, no difference in heat PT-OP-G Mobility & Gait Start: 04/16/24 14:47 Freq: Status: Active Protocol: Document 04/16/24 14:48 [facility] (Rec: 04/16/24 15:29 [facility] [id number]) OP Gait Assessment Comments Gait Comments dec LLE stance time, wears heel lift in L shoe per past PT recommenation, slower L knee flex/ext, dec push off, rigid spinal movement PT-OP-J Posture/Palpation/Skin Start: 04/16/24 14:47 Freq: Status: Active Protocol: Document 05/16/24 14:26 [facility] (Rec: 05/16/24 15:22 [facility] [id number]) Posture Evaluation [facility] Postural Classification System Lumbar Protective Mechanism Left AP 0 Lumbar Protective Mechanism Right AP 0 Lumbar Protective Mechanism Left PA 2 Lumbar Protective Mechanism Right PA 2 PT-OP-K Range of Motion Start: 04/16/24 14:47 Freq: Status: Active Protocol: Document 04/16/24 14:48 [facility] (Rec: 04/16/24 15:29 [facility] [id number]) Lumbar Spine Range of Motion Lumbar Spine Active Percentage Flexion 20 Extension 5 Rotation Left 30 Rotation Right 50 Lateral Flexion Left 60 Lateral Flexion Right 60 Knee Goniometric Range of Motion Knee L Flexion Active (degrees) 104 Extension Active (degrees) 14 Ankle and Foot Goniometric Range of Motion Ankle and Foot Right Active Dorsiflexion with Knee Flexed 2 Dorsiflexion with Knee Extended 0 Plantarflexion 55 Left Active Dorsiflexion with Knee Flexed 10 Dorsiflexion with Knee Extended 13 Plantarflexion 52 Comments lacking DF to neutral in both positions PT-OP-L Special Tests Start: 04/16/24 14:47 Freq: Status: Active Protocol: Document 04/16/24 14:48 [facility] (Rec: 04/16/24 15:29 [facility] [id number]) Special Tests Lumbar Spine Special Tests Straight Leg Raise Test Results neg B -able to get to 90 ~ w/ opp knee bent Slump Test Results slump pos R; B positive ext sit PT-OP-M Strength Start: 04/16/24 14:47 Freq: Status: Active Protocol: Document 05/16/24 14:26 [facility] (Rec: 05/16/24 15:22 [facility] [id number]) Hip Strength Hip Manual Muscle Testing Right Flexion (L2) 4 Good Abduction 4- Good- External Rotation 4+ Good+ Internal Rotation 4+ Good+ Left Flexion (L2) 3+ Fair+ Abduction 3+ Fair+ External Rotation 3+ Fair+ Internal Rotation 4- Good- Knee Strength Knee Manual Muscle Testing Right Flexion (S2) 5 Normal Extension (L3) 5 Normal Left Flexion (S2) 4 Good Extension (L3) 4- Good- Ankle/Foot Strength Ankle and Foot Manual Muscle Testing Right Dorsiflexion (L4) 5 Normal Plantarflexion (S1) 5 Normal Inversion 5 Normal Eversion (S1) 5 Normal Comments PF tested seated Left Dorsiflexion (L4) 4+ Good+ Plantarflexion (S1) 4+ Good+ Inversion 4 Good Eversion (S1) 4+ Good+ Comments pain PT-OP-Q Treatments Start: 04/16/24 14:47 Freq: Status: Active Protocol: Document 06/13/24 14:27 AB (Rec: 06/13/24 16:28 AB [id number]) Therapeutic Exercises Supine Exercises piriformis stretch Supine Exercise Name HEP Side bilateral Equipment Used HEP Reps/Minutes one minute each LE Comments pre MET post manual Mika stretch Supine Exercise Name w/opp knee to chest Side bilateral Reps/Minutes 1 min ea Comments Pre MET post manual with AROM knee flexion Standing Exercises calf stretches Standing Exercise Name gastroc and soleus Side bilateral Resistance LEILANI Reps/Minutes 60 sec each X1 Comments post MW *untimed for billing Manual Therapy Treatment Consent Patient gave verbal consent for manual Yes treatment Soft Tissue Mobilization lumbar paraspinals Body Location bilateral Mobilization Type Sustained Pressure Intensity/Depth Moderate Body Position Sidelying hip flexor Body Location L iliacus proximal and distal Mobilization Type Sustained Pressure Intensity/Depth Moderate Body Position Supine hips, SI area Body Location L SI, glute/piriformis, Mobilization Type Cross-Friction,Rolling, Sustained Pressure Intensity/Depth Moderate Body Position Sidelying Comments and hooklying Joint Mobilizations left ankle Joint Mulligan with movement TC mob Direction AP Grade III Body Position Standing Reps/Duration X10 X 3 Taping LS area Body Location SI to lower thoracic along paraspinals I strips cross at SI horiz L 1 & 2 Treatment Focus pain and posture Type of Tape Kinesio Tape Skin Inspection WNL Comments Anchors on tape cranially KT Comments I strip under patella and to sides of patella also to I strips to unload fat pad L knee Manual Techniques MET for right AI left PI Type and pubic shotgun Body Location SI Body Position Hooklying Reps/Duration 6X 6 seconds each PT-OP-R Modalities Start: 04/16/24 14:47 Freq: Status: Active Protocol: Document 05/10/24 14:30 AB (Rec: 05/10/24 16:23 AB [id number]) Hot Pack/Cold Pack Treatment left knee Location focus on pes anserine area Patient Position Hooklying PT-OP-T Assessment and Plan Start: 04/16/24 14:47 Freq: Status: Active Protocol: Document 06/13/24 14:27 AB (Rec: 06/13/24 16:28 AB [id number]) Physical Therapy Assessment Goals activity Short Term Goal (STG) Pt will report being able to go up a flight of stairs w/o c /o fatigue or pain greater than 4/10 1/2-still difficulty w/up. down ok STG Duration 05/29/24 Skilled Nursing Goal (LTG) Pt will report being able to sit and stand and alternate between the options in order to allow pt to return to working. LTG Duration 07/10/24 strength Short Term Goal (STG) Pt will be indep w/HEP and will be able to start working out at the gym w/PT direction. 05/16-indep w/HEP, working on gym program options STG Duration 05/29/24 Dry Cleaner Hand Goal (LTG) pt will score at least 4/5 on BLE MMT and at least 3/5 on LPM to show improved stability to allow greater ease w/ activity. 05/16-improving LTG Duration 07/10/24 CHRIS Impairment Short Term Goal (STG) Pt will improve CHRIS score to at least 19/50 to show improved functional ability. 05/16- STG Duration 05/29/24 Dry Cleaner Hand Goal (LTG) Pt will improve CHRIS score to at least 9/50 to show improved functional ability. LTG Duration 07/10/24 Assessment Summary Assessment Shama rates pain 05/24 end of session. Ambulating out of session without device less antalgic pattern. Physical Therapy Plan Frequency and Duration Frequency of Treatment 2x/Week Duration of treatment (weeks) 12 Plan of Care Start Date 04/16/24 Plan of Care End Date 07/10/24 Next Visit Focus/Plan Next Note Type Treatment Note Next Visit Plan work on ability to get TKE and hip ext L, balance exercises, stair and gait training work on circumfrential MFR to LLE careful re: hx of compression fx L1, 2; work on pelvis relalignment, gentle STM to back and LLE to improve mobility and ROM, ankle and knee jt mobs to improve mobility.
--- NOTE | 2024-06-25 16:22 | PT.OTN ---
Current Diagnoses Other chronic pain (06/25/24) Low back pain, unspecified (06/25/24) Physical Therapy Treatment Note PT-OP-A Visit Information Start: 04/16/24 14:47 Freq: Status: Active Protocol: Document 06/25/24 14:29 AB (Rec: 06/25/24 16:21 AB [id number]) Out-Patient Physical Therapy Visit Information Visit Information Visit Type Treatment Note Visit Start Time 14:33 Visit Stop Time 15:21 Visit Number 19 Number of PARTY BUS DRIVER Visits 3 PT-OP-B Current Condition Start: 04/16/24 14:47 Freq: Status: Active Protocol: Document 04/16/24 14:48 [facility] (Rec: 04/16/24 15:29 [facility] [id number]) Current Condition History of Current Condition Onset Date August 2022 Current Complaints LBP and leg pain History of Current Condition Pt had accident in August 2022 and fell of 8 ft ladder holding chainsaw. Dislocated L knee and had 2 different surgery (external fixation then internal fixation), lumbar spine compression fx ( L1 and 2) and has degneration of L4 and 5 w/compression of n root R>L L4&5. Did PT for several months and started seeing a pain management doctor and had horrible L ankle n pain and had injection that helped. 2nd injections in back helped w/n pain in thigh. DId PT from Jan 2023 ( [facility] until that point) October 2023. Finished d/t move to [place]. pain management doctor wanted her to continue. took a while to get into primary w/move. Feels like nerve pain is getting significantly worse and is able to do less. hx of fx of tibia w/screws (L) about 10 years ago d/t horse falling onto her and those screws had to be take out. Has appt w/pain management Jun 10 . 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 was up to 2500 steps in October in a day. Now it is harder to get to that amt d/t pain. LLE started to swell again and wearing compression socks during the day. Will be exhausted easily like going up a flight of stairs. Treatment Goals Patient/Caregiver Goals strength as much as can, try to avoid surgery, get gym program PT-OP-C Subjective Start: 04/16/24 14:47 Freq: Status: Active Protocol: Document 06/25/24 14:29 AB (Rec: 06/25/24 16:21 AB [id number]) OP-PT Subjective Patient Comments Patient Comments Patient reports the back of the knee continues to be painful 08/22 with ambulation. Patient comments SI/hips get sore when tired. PT-OP-D Balance Start: 04/16/24 14:47 Freq: Status: Active Protocol: Document 04/16/24 14:48 [facility] (Rec: 04/16/24 15:29 [facility] [id number]) Balance Tests Single Limb Standing Single Limb- Right 14 sec w/opp hip drop-back pain Single Limb- Left 6 sec w/opp hip drop PT-OP-F Manual Assessment Start: 04/16/24 14:47 Freq: Status: Active Protocol: Document 04/16/24 14:48 [facility] (Rec: 04/16/24 15:29 [facility] [id number]) Manual Assessments Other Manual Assessments Other Manual Assessments redder around R scars, L>R inflmation, no difference in heat PT-OP-G Mobility & Gait Start: 04/16/24 14:47 Freq: Status: Active Protocol: Document 04/16/24 14:48 [facility] (Rec: 04/16/24 15:29 [facility] [id number]) OP Gait Assessment Comments Gait Comments dec LLE stance time, wears heel lift in L shoe per past PT recommenation, slower L knee flex/ext, dec push off, rigid spinal movement PT-OP-J Posture/Palpation/Skin Start: 04/16/24 14:47 Freq: Status: Active Protocol: Document 05/16/24 14:26 [facility] (Rec: 05/16/24 15:22 [facility] [id number]) Posture Evaluation [facility] Postural Classification System Lumbar Protective Mechanism Left AP 0 Lumbar Protective Mechanism Right AP 0 Lumbar Protective Mechanism Left PA 2 Lumbar Protective Mechanism Right PA 2 PT-OP-K Range of Motion Start: 04/16/24 14:47 Freq: Status: Active Protocol: Document 04/16/24 14:48 [facility] (Rec: 04/16/24 15:29 [facility] [id number]) Lumbar Spine Range of Motion Lumbar Spine Active Percentage Flexion 20 Extension 5 Rotation Left 30 Rotation Right 50 Lateral Flexion Left 60 Lateral Flexion Right 60 Knee Goniometric Range of Motion Knee L Flexion Active (degrees) 104 Extension Active (degrees) 14 Ankle and Foot Goniometric Range of Motion Ankle and Foot Right Active Dorsiflexion with Knee Flexed 2 Dorsiflexion with Knee Extended 0 Plantarflexion 55 Left Active Dorsiflexion with Knee Flexed 10 Dorsiflexion with Knee Extended 13 Plantarflexion 52 Comments lacking DF to neutral in both positions PT-OP-L Special Tests Start: 04/16/24 14:47 Freq: Status: Active Protocol: Document 04/16/24 14:48 [facility] (Rec: 04/16/24 15:29 [facility] [id number]) Special Tests Lumbar Spine Special Tests Straight Leg Raise Test Results neg B -able to get to 90 ~ w/ opp knee bent Slump Test Results slump pos R; B positive ext sit PT-OP-M Strength Start: 04/16/24 14:47 Freq: Status: Active Protocol: Document 05/16/24 14:26 [facility] (Rec: 05/16/24 15:22 [facility] [id number]) Hip Strength Hip Manual Muscle Testing Right Flexion (L2) 4 Good Abduction 4- Good- External Rotation 4+ Good+ Internal Rotation 4+ Good+ Left Flexion (L2) 3+ Fair+ Abduction 3+ Fair+ External Rotation 3+ Fair+ Internal Rotation 4- Good- Knee Strength Knee Manual Muscle Testing Right Flexion (S2) 5 Normal Extension (L3) 5 Normal Left Flexion (S2) 4 Good Extension (L3) 4- Good- Ankle/Foot Strength Ankle and Foot Manual Muscle Testing Right Dorsiflexion (L4) 5 Normal Plantarflexion (S1) 5 Normal Inversion 5 Normal Eversion (S1) 5 Normal Comments PF tested seated Left Dorsiflexion (L4) 4+ Good+ Plantarflexion (S1) 4+ Good+ Inversion 4 Good Eversion (S1) 4+ Good+ Comments pain PT-OP-Q Treatments Start: 04/16/24 14:47 Freq: Status: Active Protocol: Document 06/25/24 14:29 AB (Rec: 06/25/24 16:21 AB [id number]) Therapeutic Exercises Supine Exercises hamstring stretch Side left Reps/Minutes 60 sec X 1 Comments pre MET piriformis stretch Supine Exercise Name HEP Side bilateral Equipment Used HEP Reps/Minutes one minute each LE Comments pre MET Mika stretch Supine Exercise Name w/opp knee to chest Side bilateral Reps/Minutes 1 min ea Comments Pre MET with AROM knee flexion Standing Exercises forward T/single leg lift Standing Exercise Name to chair seat height Side bilateral Reps/Minutes X10 each LE step ups Standing Exercise Name with UE support Side bilateral Reps/Minutes X12 each LE Comments focus on ext to 0 deg gait at wall Standing Exercise Name hip ext/knee ext opp LE step fwd hands on wall Reps/Minutes X10 each LE Comments verbal visual/ one step verbal TKE Side right Equipment Used L1 Reps/Minutes 10 Heel raises Standing Exercise Name on stairs HEP Side bilateral Reps/Minutes X10 with knees bent X 10 knees staraight calf stretches Standing Exercise Name gastroc and soleus Side bilateral Resistance LEILANI Reps/Minutes 60 sec each X1 Comments post MW *untimed for billing Other Exercises isometrics Other Exercise Name glute med isometric HEP Side bilateral Reps/Minutes one minute each LE Comments verbal and visual cues Manual Therapy Treatment Consent Patient gave verbal consent for manual Yes treatment Soft Tissue Mobilization calf Body Location L calf and HS Mobilization Type Rolling Intensity/Depth Moderate Joint Mobilizations left ankle Joint Mulligan with movement TC mob Direction AP Grade III Body Position Standing Reps/Duration X10 X 3 Taping KT Comments I strip under patella and to sides of patella also to I strips to unload fat pad L knee additional I strip to improve tracking medially. Manual Techniques MET for right AI left PI Type and pubic shotgun Body Location SI Body Position Hooklying Reps/Duration 6X 6 seconds each PT-OP-R Modalities Start: 04/16/24 14:47 Freq: Status: Active Protocol: Document 05/10/24 14:30 AB (Rec: 05/10/24 16:23 AB [id number]) Hot Pack/Cold Pack Treatment left knee Location focus on pes anserine area Patient Position Hooklying PT-OP-T Assessment and Plan Start: 04/16/24 14:47 Freq: Status: Active Protocol: Document 06/25/24 14:29 AB (Rec: 06/25/24 16:21 AB [id number]) Physical Therapy Assessment Goals activity Short Term Goal (STG) Pt will report being able to go up a flight of stairs w/o c /o fatigue or pain greater than 4/10 1/2-still difficulty w/up. down ok STG Duration 05/29/24 Bending Press Operator Goal (LTG) Pt will report being able to sit and stand and alternate between the options in order to allow pt to return to working. LTG Duration 07/10/24 strength Short Term Goal (STG) Pt will be indep w/HEP and will be able to start working out at the gym w/PT direction. 05/16-indep w/HEP, working on gym program options STG Duration 05/29/24 Bending Press Operator Goal (LTG) pt will score at least 4/5 on BLE MMT and at least 3/5 on LPM to show improved stability to allow greater ease w/ activity. 05/16-improving LTG Duration 07/10/24 CHRIS Impairment Short Term Goal (STG) Pt will improve CHRIS score to at least 19/50 to show improved functional ability. 05/16- STG Duration 05/29/24 Bending Press Operator Goal (LTG) Pt will improve CHRIS score to at least 9/50 to show improved functional ability. LTG Duration 07/10/24 Assessment Summary Assessment 3/10 calf pain end of session from stretchin per patient. Physical Therapy Plan Frequency and Duration Frequency of Treatment 2x/Week Duration of treatment (weeks) 12 Plan of Care Start Date 04/16/24 Plan of Care End Date 07/10/24 Next Visit Focus/Plan Next Note Type Treatment Note Next Visit Plan work on ability to get TKE and hip ext L, balance exercises, stair and gait training work on circumfrential MFR to LLE careful re: hx of compression fx L1, 2; work on pelvis relalignment, gentle STM to back and LLE to improve mobility and ROM, ankle and knee jt mobs to improve mobility. 6
--- NOTE | 2024-06-27 15:53 | PT.OTN ---
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 Dislocated L knee and had 2 different surgery (external fixation then internal fixation), lumbar spine compression fx ( L1 and 2) and has degneration of L4 and 5 w/compression of n root R>L L4&5. Did PT for several months and started seeing a pain management doctor and had horrible L ankle n pain and had injection that helped. 2nd injections in back helped w/n pain in thigh. DId PT from Jan 2023 ( [facility] until that point) October 2023. Finished d/t move to [place]. pain management doctor wanted her to continue. took a while to get into primary w/move. Feels like nerve pain is getting significantly worse and is able to do less. hx of fx of tibia w/screws (L) about 10 years ago d/t horse falling onto her and those screws had to be take out. Has appt w/pain management Jun 10 . 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 was up to 2500 steps in October in a day. Now it is harder to get to that amt d/t pain. LLE started to swell again and wearing compression socks during the day. Will be exhausted easily like going up a flight of stairs. Treatment Goals Patient/Caregiver Goals strength as much as can, try to avoid surgery, get gym program PT-OP-C Subjective Start: 04/16/24 14:47 Freq: Status: Active Protocol: Document 06/27/24 14:37 [facility] (Rec: 06/27/24 15:53 [facility] [id number]) OP-PT Subjective Patient Comments Patient Comments Pt reports good days and bad. She thinks she is improving. She can tell how weak the leg is because sometimes she doesn 't even clear the leg enough when walking. L ankle is feeling very stiff PT-OP-D Balance Start: 04/16/24 14:47 Freq: Status: Active Protocol: Document 04/16/24 14:48 [facility] ([facility]16[facility]24 15[id number] Balance Tests Single Limb Standing Single Limb- Right 14 sec w/opp hip drop-back pain Single Limb- Left 6 sec w/opp hip drop PT-OP-F Manual Assessment Start: 04/16/24 14:47 Freq: Status: Active Protocol: Document 04/16/24 14:48 [facility] (Rec: 04/16/24 15:29 [id number] Manual Assessments Other Manual Assessments Other Manual Assessments redder around R scars, L>R inflmation, no difference in heat PT-OP-G Mobility & Gait Start: 04/16/24 14:47 Freq: Status: Active Protocol: Document 04/16/24 14:48 [facility] (Rec: 04/16/24 15:29 [id number] OP Gait Assessment Comments Gait Comments dec LLE stance time, wears heel lift in L shoe per past PT recommenation, slower L knee flex/ext, dec push off, rigid spinal movement PT-OP-J Posture/Palpation/Skin Start: 04/16/24 14:47 Freq: Status: Active Protocol: Document 06/27/24 14:37 [facility] (Rec: 06/27/24 15:53 [facility] [id number]) Posture Evaluation Braxton Postural Classification System Lumbar Protective Mechanism Left AP 1 Lumbar Protective Mechanism Right AP 3 Lumbar Protective Mechanism Left PA 2 Lumbar Protective Mechanism Right PA 2 PT-OP-K Range of Motion Start: 04/16/24 14:47 Freq: Status: Active Protocol: Document 04/16/24 14:48 [facility] (Rec: 04/16/24 15:29 [facility] [id number]) Lumbar Spine Range of Motion Lumbar Spine Active Percentage Flexion 20 Extension 5 Rotation Left 30 Rotation Right 50 Lateral Flexion Left 60 Lateral Flexion Right 60 Knee Goniometric Range of Motion Knee L Flexion Active (degrees) 104 Extension Active (degrees) 14 Ankle and Foot Goniometric Range of Motion Ankle and Foot Right Active Dorsiflexion with Knee Flexed 2 Dorsiflexion with Knee Extended 0 Plantarflexion 55 Left Active Dorsiflexion with Knee Flexed 10 Dorsiflexion with Knee Extended 13 Plantarflexion 52 Comments lacking DF to neutral in both positions PT-OP-L Special Tests Start: 04/16/24 14:47 Freq: Status: Active Protocol: Document 04/16/24 14:48 [facility] (Rec: 04/16/24 15:29 [facility] [id number]) Special Tests Lumbar Spine Special Tests Straight Leg Raise Test Results neg B -able to get to 90 ~ w/ opp knee bent Slump Test Results slump pos R; B positive ext sit PT-OP-M Strength Start: 04/16/24 14:47 Freq: Status: Active Protocol: Document 06/27/24 14:37 [facility] (Rec: 06/27/24 15:53 [id number]) Hip Strength Hip Manual Muscle Testing Right Flexion (L2) 4 Good Abduction 3+ Fair+ External Rotation 5 Normal Internal Rotation 5 Normal Comments pain R hip Left Flexion (L2) 3+ Fair+ Abduction 3+ Fair+ External Rotation 5 Normal Internal Rotation 5 Normal Knee Strength Knee Manual Muscle Testing Right Flexion (S2) 5 Normal Extension (L3) 5 Normal Left Flexion (S2) 4 Good Extension (L3) 4- Good- Ankle/Foot Strength Ankle and Foot Manual Muscle Testing Right Dorsiflexion (L4) 5 Normal Plantarflexion (S1) 5 Normal Inversion 5 Normal Eversion (S1) 5 Normal Comments PF tested seated Left Dorsiflexion (L4) 4- Good- Plantarflexion (S1) 4 Good Inversion 4 Good Eversion (S1) 4+ Good+ Comments pain inversion PT-OP-Q Treatments Start: 04/16/24 14:47 Freq: Status: Active Protocol: Document 06/27/24 14:37 [facility] (Rec: 06/27/24 15:53 [facility] [id number]) Cardio Equipment Recumbent Bicycle Duration (Minutes) 3 Resistance 5 Seat Position 4 Other cues for set up Gym Equipment Cable Column (Body Solid) Leg Curl Details DL, SL L Resistance 2 Reps/Time 10 ea Shuttle Recovery unilateral Details cues full range Resistance 25# Reps/Time X15 bilateral Details 50# Reps/Time X15 Therapeutic Exercises Standing Exercises sidestep Side bilateral Equipment Used L1 Reps/Minutes 10ft step ups Standing Exercise Name lat Side left Reps/Minutes 8 Comments cues control and focus on L doing the work Other Exercises isometrics Other Exercise Name LE MMT and LPM Side bilateral Manual Therapy Treatment Consent Patient gave verbal consent for manual Yes treatment Soft Tissue Mobilization calf Body Location L calf and HS Mobilization Type Myofascial Release,Rolling Intensity/Depth Superficial Comments circumfrential and rolling Joint Mobilizations left ankle Comments L calcaneal distraction& distraction talus, AP talus c/ r PT-OP-R Modalities Start: 04/16/24 14:47 Freq: Status: Active Protocol: Document 05/10/24 14:30 [facility] (Rec: 05/10/24 16:23 [facility] [id number]) Hot Pack/Cold Pack Treatment left knee Location focus on pes anserine area Patient Position Hooklying PT-OP-T Assessment and Plan Start: 04/16/24 14:47 Freq: Status: Active Protocol: Document 06/27/24 14:37 [facility] (Rec: 06/27/24 15:53 [facility] [id number]) Physical Therapy Assessment Goals activity Short Term Goal (STG) Pt will report being able to go up a flight of stairs w/o c /o fatigue or pain greater than 4/10 05/16-still difficulty w/up. down ok 06/27-some days better than others -not pain w/stairs but weakness STG Duration 07/27 Group Home Goal (LTG) Pt will report being able to sit and stand and alternate between the options in order to allow pt to return to working. 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 05/16-indep w/HEP, working on gym program options STG Duration 05/29/24 Group Home Goal (LTG) pt will score at least 4/5 on BLE MMT and at least 3/5 on LPM to show improved stability to allow greater ease w/ activity. 05/16-improving 06/27-much improved hip rotators and improved core LTG Duration 07/10/24 CHRIS Impairment 50 Short Term Goal (STG) Pt will improve CHRIS score to at least 19/50 to show improved functional ability. 05/16- 06/27-pt forgot to fill out back of form STG Duration 07/27 Patient Services Manager Goal (LTG) Pt will improve CHRIS score to at least 9/50 to show improved functional ability. LTG Duration 08/19 Assessment Summary Assessment Pt is making good progress with PT but cont to struggle w /significnat back pain, LLE weakness and LLE pain. She may bneefit from further imaging again d/t extensive PT history and cont significant pain. Cont PT for strength, balance, gait and mobility. Physical Therapy Plan Frequency and Duration Frequency of Treatment 2x/Week Duration of treatment (weeks) 10 Plan of Care Start Date 06/27/24 Plan of Care End Date 09/05/24 Therapeutic Interventions Therapeutic Interventions Balance Training,Gait Training ,Home Exercise Program,Joint Mobilizations,Manual Therapy, Neuromuscular Re-education, Patient/Caregiver Education, Self-Care/Home Management,Soft Tissue Mobilization,Taping, Therapeutic Activities, Therapeutic Exercises Modalities Cold Pack/Ice Massage,Electric Stimulation,Hot Packs, Infrared Therapy,Ultrasound Next Visit Focus/Plan Next Note Type Treatment Note Next Visit Plan cont to work on ability to get TKE and hip ext L, balance exercises, stair and gait training, work on glute med work on circumfrential MFR to LLE careful re: hx of compression fx L1, 2; work on pelvis relalignment, gentle STM to back and LLE to improve mobility and ROM, ankle and knee jt mobs to improve mobility.
--- NOTE | 2024-06-27 15:54 | PT.OPPOC ---
Physical, Occupational & Speech Therapy At Current Diagnoses Other chronic pain (06/27/24) Low back pain, unspecified (06/27/24) Visit Care Team Role Provider Type Jarrett Ellison DO Attending Provider Physician Family Provider Primary Care Provider Referring Provider Specialty: Family Practice Address: [address] [place] [address], [address], [facility] Email: .[employer] Plan Of Care PT-OP-B Current Condition Start: 04/16/24 14:47 Freq: Status: Active Protocol: Document 04/16/24 14:48 [facility] (Rec: 04/16/24 15:29 [facility] [id number]) Current Condition History of Current Condition Onset Date August 2022 Current Complaints LBP and leg pain History of Current Condition Pt had accident in August 2022 and fell of 8 ft ladder holding chainsaw. Dislocated L knee and had 2 different surgery (external fixation then internal fixation), lumbar spine compression fx ( L1 and 2) and has degneration of L4 and 5 w/compression of n root R>L L4&5. Did PT for several months and started seeing a pain management doctor and had horrible L ankle n pain and had injection that helped. 2nd injections in back helped w/n pain in thigh. DId PT from Jan 2023 ( [facility] until that point) October 2023. Finished d/t move to [place]. pain management doctor wanted her to continue. took a while to get into primary w/move. Feels like nerve pain is getting significantly worse and is able to do less. hx of fx of tibia w/screws (L) about 10 years ago d/t horse falling onto her and those screws had to be take out. Has appt w/pain management Jun 10 . 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 was up to 2500 steps in October in a day. Now it is harder to get to that amt d/t pain. LLE started to swell again and wearing compression socks during the day. Will be exhausted easily like going up a flight of stairs. Treatment Goals Patient/Caregiver Goals strength as much as can, try to avoid surgery, get gym program PT-OP-T Assessment and Plan Start: 04/16/24 14:47 Freq: Status: Active Protocol: Document 06/27/24 14:37 [facility] (Rec: 06/27/24 15:53 [facility] [id number]) Physical Therapy Assessment Goals activity Short Term Goal (STG) Pt will report being able to go up a flight of stairs w/o c /o fatigue or pain greater than 4/10 1/2-still difficulty w/up. down ok 06/27-some days better than others -not pain w/stairs but weakness STG Duration 07/27 Boiler Tube Reamer Goal (LTG) Pt will report being able to sit and stand and alternate between the options in order to allow pt to return to working. 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 1-indep w/HEP, working on gym program options STG Duration 05/29/24 Boiler Tube Reamer Goal (LTG) pt will score at least 4/5 on BLE MMT and at least 3/5 on LPM to show improved stability to allow greater ease w/ activity. 1-improving 06/27-much improved hip rotators and improved core LTG Duration 07/10/24 CHRIS Impairment 25/50 Short Term Goal (STG) Pt will improve CHRIS score to at least 19/50 to show improved functional ability. 05/16- 06/27-pt forgot to fill out back of form STG Duration 07/27 Boiler Tube Reamer Goal (LTG) Pt will improve CHIRS score to at least 9/50 to show improved functional ability. LTG Duration 08/19 Assessment Summary Assessment Pt is making good progress with PT but cont to struggle w /significnat back pain, LLE weakness and LLE pain. She may bneefit from further imaging again d/t extensive PT history and cont significant pain. Cont PT for strength, balance, gait and mobility. Physical Therapy Plan Frequency and Duration Frequency of Treatment 2x/Week Duration of treatment (weeks) 10 Plan of Care Start Date 06/27/24 Plan of Care End Date 09/05/24 Therapeutic Interventions Therapeutic Interventions Balance Training,Gait Training ,Home Exercise Program,Joint Mobilizations,Manual Therapy, Neuromuscular Re-education, Patient/Caregiver Education, Self-Care/Home Management,Soft Tissue Mobilization,Taping, Therapeutic Activities, Therapeutic Exercises Modalities Cold Pack/Ice Massage,Electric Stimulation,Hot Packs, Infrared Therapy,Ultrasound Next Visit Focus/Plan Next Note Type Treatment Note Next Visit Plan cont to work on ability to get TKE and hip ext L, balance exercises, stair and gait training, work on glute med work on circumfrential MFR to LLE careful re: hx of compression fx L1, 2; work on pelvis relalignment, gentle STM to back and LLE to improve mobility and ROM, ankle and knee jt mobs to improve mobility. Plan of Care Dates Plan of Care Start Date 06/27/24 Plan of Care End Date 09/05/24 Electronically Signed by: Ermelinda Escobar, PT 06/27/24 [id number] If you are in agreement with this Plan of Care, please return a signed and dated copy. I have reviewed this Plan of Care and certify that the skilled therapy services above are required to meet the patient?s needs. Physician Signature Date Printed Name and Credentials Clinical Instructor Signature Printed Name and Credentials
--- NOTE | 2024-07-01 16:09 | PT.OTN ---
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 Dislocated L knee and had 2 different surgery (external fixation then internal fixation), lumbar spine compression fx ( L1 and 2) and has degneration of L4 and 5 w/compression of n root R>L L4&5. Did PT for several months and started seeing a pain management doctor and had horrible L ankle n pain and had injection that helped. 2nd injections in back helped w/n pain in thigh. DId PT from Jan 2023 ( [facility] until that point) October 2023. Finished d/t move to [place]. pain management doctor wanted her to continue. took a while to get into primary w/move. Feels like nerve pain is getting significantly worse and is able to do less. hx of fx of tibia w/screws (L) about 10 years ago d/t horse falling onto her and those screws had to be take out. Has appt w/pain management Jun 10 . 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 was up to 2500 steps in October in a day. Now it is harder to get to that amt d/t pain. LLE started to swell again and wearing compression socks during the day. Will be exhausted easily like going up a flight of stairs. Treatment Goals Patient/Caregiver Goals strength as much as can, try to avoid surgery, get gym program PT-OP-C Subjective Start: 04/16/24 14:47 Freq: Status: Active Protocol: Document 07/01/24 15:10 AB (Rec: 07/01/24 16:09 AB [id number]) OP-PT Subjective Patient Comments Patient Comments Shama report she is the same. Pt rates left hip pain 4/10, back 4/10 with walking, decreasing to 2/10 at rest. PT-OP-D Balance Start: 04/16/24 14:47 Freq: Status: Active Protocol: Document 04/16/24 14:48 [facility] (Rec: 04/16/24 15:29 [facility] [id number]) Balance Tests Single Limb Standing Single Limb- Right 14 sec w/opp hip drop-back pain Single Limb- Left 6 sec w/opp hip drop PT-OP-F Manual Assessment Start: 04/16/24 14:47 Freq: Status: Active Protocol: Document 04/16/24 14:48 [facility] (Rec: 04/16/24 15:29 [facility] [id number]) Manual Assessments Other Manual Assessments Other Manual Assessments redder around R scars, L>R inflmation, no difference in heat PT-OP-G Mobility & Gait Start: 04/16/24 14:47 Freq: Status: Active Protocol: Document 04/16/24 14:48 LR (Rec: 04/16/24 15:29 [facility] [id number]) OP Gait Assessment Comments Gait Comments dec LLE stance time, wears heel lift in L shoe per past PT recommenation, slower L knee flex/ext, dec push off, rigid spinal movement PT-OP-J Posture/Palpation/Skin Start: 04/16/24 14:47 Freq: Status: Active Protocol: Document 06/27/24 14:37 LR (Rec: 06/27/24 15:53 [facility] [id number]) Posture Evaluation [facility] Postural Classification System Lumbar Protective Mechanism Left AP 1 Lumbar Protective Mechanism Right AP 3 Lumbar Protective Mechanism Left PA 2 Lumbar Protective Mechanism Right PA 2 PT-OP-K Range of Motion Start: 04/16/24 14:47 Freq: Status: Active Protocol: Document 04/16/24 14:48 LR (Rec: 04/16/24 15:29 [facility] [id number]) Lumbar Spine Range of Motion Lumbar Spine Active Percentage Flexion 20 Extension 5 Rotation Left 30 Rotation Right 50 Lateral Flexion Left 60 Lateral Flexion Right 60 Knee Goniometric Range of Motion Knee L Flexion Active (degrees) 104 Extension Active (degrees) 14 Ankle and Foot Goniometric Range of Motion Ankle and Foot Right Active Dorsiflexion with Knee Flexed 2 Dorsiflexion with Knee Extended 0 Plantarflexion 55 Left Active Dorsiflexion with Knee Flexed 10 Dorsiflexion with Knee Extended 13 Plantarflexion 52 Comments lacking DF to neutral in both positions PT-OP-L Special Tests Start: 04/16/24 14:47 Freq: Status: Active Protocol: Document 04/16/24 14:48 [facility] (Rec: 04/16/24 15:29 [facility] [id number]) Special Tests Lumbar Spine Special Tests Straight Leg Raise Test Results neg B -able to get to 90 ~ w/ opp knee bent Slump Test Results slump pos R; B positive ext sit PT-OP-M Strength Start: 04/16/24 14:47 Freq: Status: Active Protocol: Document 06/27/24 14:37 [facility] (Rec: 06/27/24 15:53 [facility] [id number]) Hip Strength Hip Manual Muscle Testing Right Flexion (L2) 4 Good Abduction 3+ Fair+ External Rotation 5 Normal Internal Rotation 5 Normal Comments pain R hip Left Flexion (L2) 3+ Fair+ Abduction 3+ Fair+ External Rotation 5 Normal Internal Rotation 5 Normal Knee Strength Knee Manual Muscle Testing Right Flexion (S2) 5 Normal Extension (L3) 5 Normal Left Flexion (S2) 4 Good Extension (L3) 4- Good- Ankle/Foot Strength Ankle and Foot Manual Muscle Testing Right Dorsiflexion (L4) 5 Normal Plantarflexion (S1) 5 Normal Inversion 5 Normal Eversion (S1) 5 Normal Comments PF tested seated Left Dorsiflexion (L4) 4- Good- Plantarflexion (S1) 4 Good Inversion 4 Good Eversion (S1) 4+ Good+ Comments pain inversion PT-OP-Q Treatments Start: 04/16/24 14:47 Freq: Status: Active Protocol: Document 07/01/24 15:10 AB (Rec: 07/01/24 16:09 AB [id number]) Gym Equipment Shuttle Recovery unilateral Details cues full range Resistance 25# Reps/Time X15 bilateral Details 50# Reps/Time X15 Therapeutic Exercises Standing Exercises forward T/single leg lift Standing Exercise Name to chair seat height Side bilateral Reps/Minutes X10 each LE Comments CGA to minimal assist step ups Standing Exercise Name lat Side bilateral Reps/Minutes 8 Comments cues control and focus on L doing the work gait at wall Standing Exercise Name hip ext/knee ext opp LE step fwd hands on wall Reps/Minutes X12 each LE Comments verbal visual/ one step verbal calf stretches Standing Exercise Name gastroc and soleus Side bilateral Resistance LEILNAI Reps/Minutes 60 sec each X2 Manual Therapy Treatment Soft Tissue Mobilization hips, SI area Body Location L SI, glute/piriformis, Mobilization Type Cross-Friction,Rolling, Sustained Pressure Intensity/Depth Moderate Body Position Sidelying Comments and hooklying Taping LS area Body Location SI to lower thoracic along paraspinals I strips cross at SI horiz L 1 & 2 Treatment Focus pain and posture Type of Tape Kinesio Tape Skin Inspection WNL Comments Anchors on tape cranially KT Comments I strip under patella and to sides of patella also to I strips to unload fat pad L knee additional I strip to improve tracking medially. PT-OP-R Modalities Start: 04/16/24 14:47 Freq: Status: Active Protocol: Document 05/10/24 14:30 AB (Rec: 05/10/24 16:23 AB [id number]) Hot Pack/Cold Pack Treatment left knee Location focus on pes anserine area Patient Position Hooklying PT-OP-T Assessment and Plan Start: 04/16/24 14:47 Freq: Status: Active Protocol: Document 07/01/24 15:10 AB (Rec: 07/01/24 16:09 AB [id number]) Physical Therapy Assessment Goals activity Short Term Goal (STG) Pt will report being able to go up a flight of stairs w/o c /o fatigue or pain greater than 4/10 05/16-still difficulty w/up. down ok 06/27-some days better than others -not pain w/stairs but weakness STG Duration 07/27 Long-Term Goal (LTG) Pt will report being able to sit and stand and alternate between the options in order to allow pt to return to working. 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 05/16-indep w/HEP, working on gym program options STG Duration 05/29/24 Long-Term Goal (LTG) pt will score at least 4/5 on BLE MMT and at least 3/5 on LPM to show improved stability to allow greater ease w/ activity. 2-improving 06/27-much improved hip rotators and improved core LTG Duration 07/10/24 CHRIS Impairment /50 Short Term Goal (STG) Pt will improve CHRIS score to at least 19/50 to show improved functional ability. 05/16- 06/27-pt forgot to fill out back of form STG Duration 07/27 Security Compliance Specialist Goal (LTG) Pt will improve CHRIS score to at least 9/50 to show improved functional ability. LTG Duration 08/19 Assessment Summary Assessment Shama rates left knee pain 0/ 10 end of session, back 2/10 end of session, continues to require fwd T to chair with CGA to minimal assist. Physical Therapy Plan Frequency and Duration Frequency of Treatment 2x/Week Duration of treatment (weeks) 10 Plan of Care Start Date 06/27/24 Plan of Care End Date 09/05/24 Next Visit Focus/Plan Next Note Type Treatment Note Next Visit Plan cont to work on ability to get TKE and hip ext L, balance exercises, stair and gait training, work on glute med work on circumfrential MFR to LLE careful re: hx of compression fx L1, 2; work on pelvis relalignment, gentle STM to back and LLE to improve mobility and ROM, ankle and knee jt mobs to improve mobility.
--- NOTE | 2024-07-03 14:26 | PT.OTN ---
Current Diagnoses Other chronic pain (07/03/24) Low back pain, unspecified (07/03/24) Physical Therapy Treatment Note PT-OP-A Visit Information Start: 04/16/24 14:47 Freq: Status: Active Protocol: Document 07/03/24 13:49 MB (Rec: 07/03/24 14:24 MB [id number]) Out-Patient Physical Therapy Visit Information Visit Information Visit Type Treatment Note Visit Note Lumbar MRI 07/01/24 Visit Start Time 13:49 Visit Stop Time 14:29 Visit Number 22 Number of CLEANER OPERATOR Visits 0 PT-OP-B Current Condition Start: 04/16/24 14:47 Freq: Status: Active Protocol: Document 04/16/24 14:48 [facility] (Rec: 04/16/24 15:29 [facility] [id number]) Current Condition History of Current Condition Onset Date August 2022 Current Complaints LBP and leg pain History of Current Condition Pt had accident in August 2022 and fell of 8 ft ladder holding chainsaw. Dislocated L knee and had 2 different surgery (external fixation then internal fixation), lumbar spine compression fx ( L1 and 2) and has degneration of L4 and 5 w/compression of n root R>L L4&5. Did PT for several months and started seeing a pain management doctor and had horrible L ankle n pain and had injection that helped. 2nd injections in back helped w/n pain in thigh. DId PT from Jan 2023 ( [facility] until that point) October 2023. Finished d/t move to [place]. pain management doctor wanted her to continue. took a while to get into primary w/move. Feels like nerve pain is getting significantly worse and is able to do less. hx of fx of tibia w/screws (L) about 10 years ago d/t horse falling onto her and those screws had to be take out. Has appt w/pain management Jun 10 . 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 was up to 2500 steps in October in a day. Now it is harder to get to that amt d/t pain. LLE started to swell again and wearing compression socks during the day. Will be exhausted easily like going up a flight of stairs. Treatment Goals Patient/Caregiver Goals strength as much as can, try to avoid surgery, get gym program PT-OP-C Subjective Start: 04/16/24 14:47 Freq: Status: Active Protocol: Document 07/03/24 13:49 MB (Rec: 07/03/24 14:24 MB [id number]) OP-PT Subjective Patient Comments Patient Comments Pt had a lumbar MRI yesterday. She reports that the findings are worse than last year's. PT-OP-D Balance Start: 04/16/24 14:47 Freq: Status: Active Protocol: Document 04/16/24 14:48 [facility] (Rec: 04/16/24 15:29 [facility] [id number]) Balance Tests Single Limb Standing Single Limb- Right 14 sec w/opp hip drop-back pain Single Limb- Left 6 sec w/opp hip drop PT-OP-F Manual Assessment Start: 04/16/24 14:47 Freq: Status: Active Protocol: Document 04/16/24 14:48 [facility] (Rec: 04/16/24 15:29 [facility] [id number]) Manual Assessments Other Manual Assessments Other Manual Assessments redder around R scars, L>R inflmation, no difference in heat PT-OP-G Mobility & Gait Start: 04/16/24 14:47 Freq: Status: Active Protocol: Document 04/16/24 14:48 [facility] (Rec: 04/16/24 15:29 [facility] [id number]) OP Gait Assessment Comments Gait Comments dec LLE stance time, wears heel lift in L shoe per past PT recommenation, slower L knee flex/ext, dec push off, rigid spinal movement PT-OP-J Posture/Palpation/Skin Start: 04/16/24 14:47 Freq: Status: Active Protocol: Document 06/27/24 14:37 [facility] (Rec: 06/27/24 15:53 [facility] [id number]) Posture Evaluation [facility] Postural Classification System Lumbar Protective Mechanism Left AP 1 Lumbar Protective Mechanism Right AP 3 Lumbar Protective Mechanism Left PA 2 Lumbar Protective Mechanism Right PA 2 PT-OP-K Range of Motion Start: 04/16/24 14:47 Freq: Status: Active Protocol: Document 04/16/24 14:48 LR (Rec: 04/16/24 15:29 [facility] [id number]) Lumbar Spine Range of Motion Lumbar Spine Active Percentage Flexion 20 Extension 5 Rotation Left 30 Rotation Right 50 Lateral Flexion Left 60 Lateral Flexion Right 60 Knee Goniometric Range of Motion Knee L Flexion Active (degrees) 104 Extension Active (degrees) 14 Ankle and Foot Goniometric Range of Motion Ankle and Foot Right Active Dorsiflexion with Knee Flexed 2 Dorsiflexion with Knee Extended 0 Plantarflexion 55 Left Active Dorsiflexion with Knee Flexed 10 Dorsiflexion with Knee Extended 13 Plantarflexion 52 Comments lacking DF to neutral in both positions PT-OP-L Special Tests Start: 04/16/24 14:47 Freq: Status: Active Protocol: Document 04/16/24 14:48 [facility] (Rec: 04/16/24 15:29 [facility] [id number]) Special Tests Lumbar Spine Special Tests Straight Leg Raise Test Results neg B -able to get to 90 ~ w/ opp knee bent Slump Test Results slump pos R; B positive ext sit PT-OP-M Strength Start: 04/16/24 14:47 Freq: Status: Active Protocol: Document 06/27/24 14:37 [facility] (Rec: 06/27/24 15:53 [facility] [id number]) Hip Strength Hip Manual Muscle Testing Right Flexion (L2) 4 Good Abduction 3+ Fair+ External Rotation 5 Normal Internal Rotation 5 Normal Comments pain R hip Left Flexion (L2) 3+ Fair+ Abduction 3+ Fair+ External Rotation 5 Normal Internal Rotation 5 Normal Knee Strength Knee Manual Muscle Testing Right Flexion (S2) 5 Normal Extension (L3) 5 Normal Left Flexion (S2) 4 Good Extension (L3) 4- Good- Ankle/Foot Strength Ankle and Foot Manual Muscle Testing Right Dorsiflexion (L4) 5 Normal Plantarflexion (S1) 5 Normal Inversion 5 Normal Eversion (S1) 5 Normal Comments PF tested seated Left Dorsiflexion (L4) 4- Good- Plantarflexion (S1) 4 Good Inversion 4 Good Eversion (S1) 4+ Good+ Comments pain inversion PT-OP-Q Treatments Start: 04/16/24 14:47 Freq: Status: Active Protocol: Document 07/03/24 13:49 MB (Rec: 07/03/24 14:24 MB [id number]) Manual Therapy Treatment Consent Patient gave verbal consent for manual Yes treatment Other Other Manual Treatments Pt in side lying: rib recoil to improve B rib mobility, paraspinals, QL and hip flexor , STM hip rotators, B vastus lateralis, TrP B QL, TFL, hip rotators near trochanter. PT-OP-R Modalities Start: 04/16/24 14:47 Freq: Status: Active Protocol: Document 05/10/24 14:30 AB (Rec: 05/10/24 16:23 AB [id number]) Hot Pack/Cold Pack Treatment left knee Location focus on pes anserine area Patient Position Hooklying PT-OP-T Assessment and Plan Start: 04/16/24 14:47 Freq: Status: Active Protocol: Document 07/03/24 13:49 MB (Rec: 07/03/24 14:24 MB [id number]) Physical Therapy Assessment Goals activity Short Term Goal (STG) Pt will report being able to go up a flight of stairs w/o c /o fatigue or pain greater than 4/10 05/16-still difficulty w/up. down ok 06/27-some days better than others -not pain w/stairs but weakness STG Duration 07/27 Half-Way Goal (LTG) Pt will report being able to sit and stand and alternate between the options in order to allow pt to return to working. 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 05/16-indep w/HEP, working on gym program options STG Duration 05/29/24 Credit Specialist Goal (LTG) pt will score at least 4/5 on BLE MMT and at least 3/5 on LPM to show improved stability to allow greater ease w/ activity. 12-improving 06/27-much improved hip rotators and improved core LTG Duration 07/10/24 CHRIS Impairment 25/50 Short Term Goal (STG) Pt will improve CHRIS score to at least 19/50 to show improved functional ability. 05/16- 06/27-pt forgot to fill out back of form STG Duration 07/27 Half-Way Goal (LTG) Pt will improve CHRIS score to at least 9/50 to show improved functional ability. LTG Duration 08/19 Assessment Summary Assessment Lumbar MRI 07/01/24: 1. Multilevel degenerative changes of the lumbar spine as described above. Chronic appearing compression deformities of L1 and L2. 2. Severe central canal stenosis at L4-5. Moderate to severe central canal stenosis at L1-L2. 3. Severe left and moderate right neural foraminal stenosis at L4-5. Mild neural foraminal stenosis at other levels. 4. 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 Pt to have EMG 08/01 on LLE and consult with Dr. Lopez 08/14. Good response to manual work today. Physical Therapy Plan Frequency and Duration Frequency of Treatment 2x/Week Duration of treatment (weeks) 10 Plan of Care Start Date 06/27/24 Plan of Care End Date 09/05/24 Therapeutic Interventions Therapeutic Interventions Balance Training,Gait Training ,Home Exercise Program,Joint Mobilizations,Manual Therapy, Neuromuscular Re-education, Patient/Caregiver Education, Self-Care/Home Management,Soft Tissue Mobilization,Taping, Therapeutic Activities, Therapeutic Exercises Modalities Cold Pack/Ice Massage,Electric Stimulation,Hot Packs, Infrared Therapy,Ultrasound Next Visit Focus/Plan Next Note Type Treatment Note Next Visit Plan Con't per POC: work on ability to get TKE and hip ext L, balance exercises, stair and gait training, work on glute med work on circumfrential MFR to LLE careful re: hx of compression fx L1, 2; work on pelvis relalignment, gentle STM to back and LLE to improve mobility and ROM, ankle and knee jt mobs to improve mobility.
--- NOTE | 2024-07-08 16:00 | PT.OTN ---
Current Diagnoses Other chronic pain (07/08/24) Low back pain, unspecified (07/08/24) Physical Therapy Treatment Note PT-OP-A Visit Information Start: 04/16/24 14:47 Freq: Status: Active Protocol: Document 07/08/24 14:33 [facility] (Rec: 07/08/24 15:07 [facility] [id number]) Out-Patient Physical Therapy Visit Information Visit Information Visit Type Discharge Summary Visit Start Time 14:37 Visit Stop Time 15:17 Visit Number 23 Number of CONE TREATER Visits 0 PT-OP-B Current Condition Start: 04/16/24 14:47 Freq: Status: Active Protocol: Document 04/16/24 14:48 [facility] (Rec: 04/16/24 15:29 [facility] [id number]) Current Condition History of Current Condition Onset Date August 2022 Current Complaints LBP and leg pain History of Current Condition Pt had accident in August 2022 and fell of 8 ft ladder holding chainsaw. Dislocated L knee and had 2 different surgery (external fixation then internal fixation), lumbar spine compression fx ( L1 and 2) and has degneration of L4 and 5 w/compression of n root R>L L4&5. Did PT for several months and started seeing a pain management doctor and had horrible L ankle n pain and had injection that helped. 2nd injections in back helped w/n pain in thigh. DId PT from Jan 2023 ( [facility] until that point) October 2023. Finished d/t move to [place]. pain management doctor wanted her to continue. took a while to get into primary w/move. Feels like nerve pain is getting significantly worse and is able to do less. hx of fx of tibia w/screws (L) about 10 years ago d/t horse falling onto her and those screws had to be take out. Has appt w/pain management Jun 10 . 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 was up to 2500 steps in October in a day. Now it is harder to get to that amt d/t pain. LLE started to swell again and wearing compression socks during the day. Will be exhausted easily like going up a flight of stairs. Treatment Goals Patient/Caregiver Goals strength as much as can, try to avoid surgery, get gym program PT-OP-C Subjective Start: 04/16/24 14:47 Freq: Status: Active Protocol: Document 07/08/24 14:33 [facility] (Rec: 07/08/24 15:07 [facility] [id number]) OP-PT Subjective Patient Comments Patient Comments reports L knee and calf have been bothering her. She had difficulty w/getting own shoe and sock on today. FElt good right after treatment last time but did a turn to look and pivoted on RLE and had a pop in back and felt okay til sat in car. Patient Reported Progress Worse PT-OP-D Balance Start: 04/16/24 14:47 Freq: Status: Active Protocol: Document 04/16/24 14:48 [facility] (Rec: 04/16/24 15:29 [facility] [id number]) Balance Tests Single Limb Standing Single Limb- Right 14 sec w/opp hip drop-back pain Single Limb- Left 6 sec w/opp hip drop PT-OP-F Manual Assessment Start: 04/16/24 14:47 Freq: Status: Active Protocol: Document 04/16/24 14:48 [facility] (Rec: 04/16/24 15:29 [facility] [id number]) Manual Assessments Other Manual Assessments Other Manual Assessments redder around R scars, L>R inflmation, no difference in heat PT-OP-G Mobility & Gait Start: 04/16/24 14:47 Freq: Status: Active Protocol: Document 04/16/24 14:48 [facility] (Rec: 04/16/24 15:29 [facility] [id number]) OP Gait Assessment Comments Gait Comments dec LLE stance time, wears heel lift in L shoe per past PT recommenation, slower L knee flex/ext, dec push off, rigid spinal movement PT-OP-J Posture/Palpation/Skin Start: 04/16/24 14:47 Freq: Status: Active Protocol: Document 07/08/24 14:33 [facility] (Rec: 07/08/24 15:13 [facility] [id number]) Posture Evaluation Braxton Postural Classification System Lumbar Protective Mechanism Left AP 0 Lumbar Protective Mechanism Right AP 2 Lumbar Protective Mechanism Left PA 2 Lumbar Protective Mechanism Right PA 2 PT-OP-K Range of Motion Start: 04/16/24 14:47 Freq: Status: Active Protocol: Document 04/16/24 14:48 [facility] (Rec: 04/16/24 15:29 [facility] [id number]) Lumbar Spine Range of Motion Lumbar Spine Active Percentage Flexion 20 Extension 5 Rotation Left 30 Rotation Right 50 Lateral Flexion Left 60 Lateral Flexion Right 60 Knee Goniometric Range of Motion Knee L Flexion Active (degrees) 104 Extension Active (degrees) 14 Ankle and Foot Goniometric Range of Motion Ankle and Foot Right Active Dorsiflexion with Knee Flexed 2 Dorsiflexion with Knee Extended 0 Plantarflexion 55 Left Active Dorsiflexion with Knee Flexed 10 Dorsiflexion with Knee Extended 13 Plantarflexion 52 Comments lacking DF to neutral in both positions PT-OP-L Special Tests Start: 04/16/24 14:47 Freq: Status: Active Protocol: Document 04/16/24 14:48 [facility] (Rec: 04/16/24 15:29 [facility] [id number]) Special Tests Lumbar Spine Special Tests Straight Leg Raise Test Results neg B -able to get to 90 ~ w/ opp knee bent Slump Test Results slump pos R; B positive ext sit PT-OP-M Strength Start: 04/16/24 14:47 Freq: Status: Active Protocol: Document 07/08/24 14:33 [facility] (Rec: 07/08/24 15:13 [facility] [id number]) Hip Strength Hip Manual Muscle Testing Right Flexion (L2) 4- Good- Abduction 3+ Fair+ External Rotation 5 Normal Internal Rotation 5 Normal Left Flexion (L2) 3+ Fair+ Abduction 3+ Fair+ External Rotation 4 Good Internal Rotation 4 Good Knee Strength Knee Manual Muscle Testing Right Flexion (S2) 5 Normal Extension (L3) 5 Normal Left Flexion (S2) 3+ Fair+ Extension (L3) 3+ Fair+ Ankle/Foot Strength Ankle and Foot Manual Muscle Testing Right Dorsiflexion (L4) 5 Normal Plantarflexion (S1) 5 Normal Inversion 5 Normal Eversion (S1) 5 Normal Comments PF tested seated Left Dorsiflexion (L4) 4+ Good+ Plantarflexion (S1) 4 Good Inversion 4 Good Eversion (S1) 4 Good Comments pain inversion PT-OP-Q Treatments Start: 04/16/24 14:47 Freq: Status: Active Protocol: Document 07/08/24 14:33 [facility] (Rec: 07/08/24 15:07 [facility] [id number]) Therapeutic Exercises Supine Exercises bridge Supine Exercise Name cues segmental lift and glute engagement Side bilateral Reps/Minutes 8 Comments small range piriformis stretch Supine Exercise Name review Other Exercises isometrics Other Exercise Name LE MMT and LPM Side bilateral Manual Therapy Treatment Consent Patient gave verbal consent for manual Yes treatment Soft Tissue Mobilization hips, SI area Body Location L HS and glute w/gentle sciatic n glide Self-Care/Home Management Treatment Education Other Education 10 min: edu to cont HEP and avoid pain with exercises. not doign all exercsies every day and dec range w/exercises to stay in comfortable range. discussed DC w/pt plan to follow up w/provider PT-OP-R Modalities Start: 04/16/24 14:47 Freq: Status: Active Protocol: Document 05/10/24 14:30 [facility] (Rec: 05/10/24 16:23 [facility] [id number]) Hot Pack/Cold Pack Treatment left knee Location focus on pes anserine area Patient Position Hooklying PT-OP-T Assessment and Plan Start: 04/16/24 14:47 Freq: Status: Active Protocol: Document 07/08/24 14:33 [facility] (Rec: 07/08/24 15:07 [facility] [id number]) Physical Therapy Assessment Goals activity Short Term Goal (STG) Pt will report being able to go up a flight of stairs w/o c /o fatigue or pain greater than 4/10 05/16-still difficulty w/up. down ok 06/27-some days better than others -not pain w/stairs but weakness STG Duration fatigue; if don't rest get painful Custodial Goal (LTG) Pt will report being able to sit and stand and alternate between the options in order to allow pt to return to working. 06/27-Can clinical informatics physician one place for 5 min at the most, sitting improving - can sit 30 min and has to change chairs or walk around LTG Duration sit 30 min in good chair, clinical informatics physician one place no greater than 5 min strength Short Term Goal (STG) Pt will be indep w/HEP and will be able to start working out at the gym w/PT direction. 1/2-indep w/HEP, working on gym program options STG Duration achieved Engineer Sergeant Goal (LTG) pt will score at least 4/5 on BLE MMT and at least 3/5 on LPM to show improved stability to allow greater ease w/ activity. 1/2-improving 06/27-much improved hip rotators and improved core 07/09-no major change since last PN LTG Duration 07/10/24 CHRIS Impairment Short Term Goal (STG) Pt will improve CHRIS score to at least 19/50 to show improved functional ability. 05/16- 06/27-pt forgot to fill out back of form 07/08- STG Duration 07/27 Custodial Goal (LTG) Pt will improve CHRIS score to at least 9/50 to show improved functional ability. LTG Duration 08/19 Assessment Summary Assessment Pt worse recently but did make progress when starting PT w/ ROM of l knee and improved mobility w/gait. She is working with sports/spine clinic now and awaiting further testing. She is indep w/HEP at this time and is DC to this d/t plateau in progress. Pt is agreeable. Physical Therapy Plan Discharge Physical Therapy Discharge Reasons Patient Request
== END 2024-07-12 08:42 | disposition home or self-care (01) ==
LOC: PHYS 14:30
PROVIDERS: Family Provider Family Medicine; PCP Family Medicine; Referring Provider Family Medicine; Visit Provider Family Medicine
DX: M54.50 Low back pain, unspecified (principal); G89.29 Other chronic pain
CPT/HCPCS: 97110; 97112; 97116; 97140; 97162; 97535

== ENCOUNTER → 2024-08-01 13:48 | Outpatient (CLI) | payer MEDICAID, SELFPAY | PROVIDERS: Family Provider Family Medicine; PCP Family Medicine; Referring Provider Physical Medicine & Rehabilitation; Visit Provider Physical Medicine & Rehabilitation | DX: M54.16 Radiculopathy, lumbar region (principal) | CPT/HCPCS: 95886; 95912 ==

== ENCOUNTER → 2024-08-23 13:38 | Outpatient (CLI) | payer OTHER, SELFPAY ==
[2024-08-23 14:44] LABS: BUN Creatinine Ratio 19.6 (6-22); Blood Urea Nitrogen 18 mg/dL (7-17); Carbon Dioxide 30 mmol/L (22-32); Chloride 98 mmol/L (98-107); Estimated Glomerular Filt Rate > 60 mL/min (>60); Glucose 84 mg/dL (80-110); HEMOLYSIS < 15 (0-50); Potassium 4.7 mmol/L (3.4-5.1); Sodium 136 mmol/L (137-145)
== END ==
PROVIDERS: Family Provider Family Medicine; PCP Family Medicine; Referring Provider Family Medicine; Visit Provider Family Medicine
DX: Z13.820 Encounter for screening for osteoporosis (principal); I10 Essential (primary) hypertension; E66.811 Obesity, class 1
CPT/HCPCS: 36415; 80048

== ENCOUNTER 2024-08-27 13:04 | Outpatient (CLI) | payer OTHER, SELFPAY ==
[2024-08-27] VITALS (9 sets, daily range): BP systolic 120–158; BP diastolic 70–92; PULSE 75–85; RESP 14–19; TEMP 36.7; O2SAT 94–100
[2024-08-27] MEDS: MIDAZOLAM 2 MG/2 ML VIAL IV (13:57)
[2024-08-27] MEDS: BETAMETHASONE 30 MG/5 ML MDV 12 MG INJ (14:03)
[2024-08-27] MEDS: iopamidoL 15 ML VIAL 3 ML INJ (14:03)
[2024-08-27] MEDS: BUPIVACAINE 0.25% (PF) VIAL 2 ML INJ (14:04)
[2024-08-27] MEDS: DEXAMETHASONE 10 MG/ML VIAL INJ (14:04)
--- NOTE | 2024-08-27 14:15 | P.PCN_ITS ---
Date/Time/Diagnoses Date of procedure: 08/27/24 Time of procedure: 14:15 Pre-procedure diagnosis: 1. HNP WITH RADICULAR FEATURES, 2. MULTILEVEL CENTRAL STENOSIS, Post-procedure diagnosis: same Procedure Notes Procedure: 1. FLUOROSCOPICALLY GUIDED CONTRAST CONTROLLED INTERLAMINAR EPIDURAL STEROID INJECTION -L4/5 Indications: Shama is referred by Dr. Ellison for treatment of Bilateral Foraminal Stenosis R>L LE symptoms. Physician: Jas Herring Total Fluoroscopy time (seconds): 11 Total sedation minutes: 15 Complications: none Procedure in detail & Post-procedure care: FINDINGS Multilevel Central Spinal Stenosis with Nerve Root Compression DESCRIPTION OF PROCEDURE Fluoroscopically guided, contrast-controlled L4/5 translaminar epidural steroid injection. Following review of allergy and review of potential side effects and complications, including, but not necessarily limited to, infection, allergic reaction, local tissue breakdown, temporary as well as permanent nerve injury, paralysis, stroke and possible , the patient indicated that the patient understood and agreed to proceed. An informed consent document was signed by the patient, witnessed by a nurse, and placed in the patient's chart. Additionally, other treatment options including modalities, medications, and physical therapy were reviewed with the patient. After review of previous anaesthesic history and IV conscious sedation the patient was deemed safe to proceed with today?s procedure with IV conscious sedation as ASA class II designation. Safety time-out was performed to confirm patient ID, procedure to be performed and site of procedure. IV sedation was accomplished with a combination of 2mg of Versed was administered by the RN after DO order, titrated to patient comfort during the course of the procedure while the patient remained responsive to all verbal commands In the prone position, following sterile prep and drape of the lumbar region, the L4/5 translaminar space was identified fluoroscopically. The skin was anesthetized via a 25-gauge, 1.5inch needle with 1% lidocaine solution. At this point, a 22-gauge short bevel spinal needle was atraumatically introduced and advanced under fluoroscopic guidance into the region of the L4/5 translaminar space. Depth was confirmed on lateral view. Radiological data, including multiple fluoroscopic views of the lumbar spine, reveal a spinal needle at the L4/5 translaminar space. Lateral views then show placement of the needle in the epidural space. Subsequent views show contrast material flowing superiorly and inferiorly in the epidural space. No vascular or intrathecal uptake is observed. At this point, using loss of resistance technique with saline and air, the epidural space was entered. This was confirmed following negative aspiration with injection of approximately 1.5cc of Isovue 200, showing excellent epidural flow without vascular or intrathecal uptake. At this point, 1cc of 1% lidocaine solution combined with 3cc or 10mg of dexamethasone and 12mg betamethasone was injected without incident. The patient tolerated the procedure well without signs or symptoms of complications prior to transfer to the recovery area continued monitoring without incident. The patient was then transferred to the recovery area where they were observed for an appropriate period of time after the injection. The patient reported a VAS score of 8 prior to the procedure and a post- procedure VAS of 1. POST OP INSTRUCTIONS The patient was provided a Pain Log to continue to record their response to the target-specific procedure prior to follow-up visit with their referring physician. Additionally, specific post-injection care instructions and a contact number to our office were provided if concerns arise regarding possible complications associated with the procedure are suspected.
== END 2024-08-27 14:30 | disposition home or self-care (01) ==
PROVIDERS: Family Provider Family Medicine; PCP Family Medicine; Referring Provider Physical Medicine & Rehabilitation; Visit Provider Physical Medicine & Rehabilitation
DX: M51.16 Intervertebral disc disorders with radiculopathy, lumbar region (principal); M48.061 Spinal stenosis, lumbar region without neurogenic claudication
CPT/HCPCS: 62323; 99152; J0702; J1100; J2250; J3490

== ENCOUNTER → 2025-03-18 14:52 | Outpatient (CLI) | payer MEDICARE, SELFPAY ==
[2025-03-18 15:31] LABS: Hematocrit 31.9 % (36-46); Hemoglobin 11.0 g/dL (12.0-16.0); Mean Corpuscular HGB Conc 34.6 % (30-36); Mean Corpuscular Hemoglobin 33.0 PG (26-34); Mean Corpuscular Volume 95.3 fL (80-100); Platelet Count 233 X10^3/uL (150-400)
[2025-03-18 16:01] LABS: Alanine Aminotransferase 10 IU/L (<35); Albumin 4.0 g/dL (3.5-5.0); Albumin Globulin Ratio 1.7 (1.0-2.8); Alkaline Phosphatase 58 U/L (38-126); Blood Urea Nitrogen 9 mg/dL (7-17); Calcium 9.3 mg/dL (8.4-10.2); Carbon Dioxide 28 mmol/L (22-32); Chloride 90 mmol/L (98-107); Cholesterol 133 mg/dL (140-199); Estimated Glomerular Filt Rate > 60 mL/min (>60); Globulin 2.3 g/dL (1.7-4.1); Glucose 85 mg/dL (70-99); HDL Cholesterol 44 mg/dL (40-60); HEMOLYSIS < 15 (0-50); Potassium 4.1 mmol/L (3.4-5.1); Sodium 126 mmol/L (137-145); Total Protein 6.3 g/dL (6.3-8.2); Triglycerides 113 mg/dL (35-150)
== END ==
PROVIDERS: PCP Family Medicine; Referring Provider Family Medicine; Visit Provider Family Medicine
DX: E78.5 Hyperlipidemia, unspecified (principal); Z00.00 Encounter for general adult medical examination without abnormal findings; I10 Essential (primary) hypertension
CPT/HCPCS: 36415; 80053; 80061; 85027